=== PATIENT | female | born 1940 | race Hispanic/Latino ===

== ENCOUNTER 2017-01-10 10:20 | Day surgery (SDC) | payer BC, MEDICARE ==
[2017-01-07 09:53] VITALS: BMI 26.6
[2017-01-10 11:04] LABS: BASO # 0.05 K/mm3 (0.0-2.0); BASO % 0.7 % (0.0-3.0); EOS # 0.1 (0.0-0.7); EOS % 1.6 % (1.5-5.0); GRAN # 5.66 (1.4-6.5); GRAN % 81.5 % (50.0-68.0); HEMATOCRIT 27.9 % (36.0-48.0); LYMPH # 0.8 (1.2-3.4); LYMPH % 11.9 % (22.0-35.0); MEAN CORPUSCULAR HEMOGLOBIN 27.8 pg (25.0-35.0); MEAN CORPUSCULAR HGB CONC 31.5 g/dl (31.0-37.0); MONO # 0.3 (0.1-0.6); MONO % 4.3 % (1.0-6.0); PLATELET COUNT 214 10^3/uL (120.0-450.0); RED CELL DISTRIBUTION WIDTH 22.5 % (11.5-14.5)
[2017-01-10 11:10] LABS: INR 1.04 (0.93-1.08); PARTIAL THROMBOPLASTIN TIME 27.5 Seconds (23.7-30.8)
[2017-01-10] MEDS ORDERED: Propofol 10 mg/ml Inj (20 ML) ONE (12:49)
[2017-01-10] MEDS ORDERED: Midazolam 2 MG/2 ML VIAL ONE (12:49)
[2017-01-10] MEDS ORDERED: Lidocaine 1% Inj (20ml) ONE (12:49)
[2017-01-10] MEDS ORDERED: Sodium Chloride 0.9% 1,000 ML IV SCH (13:15)
[2017-01-10 14:04] VITALS: BP 136/78; PULSE 87; RESP 16; TEMP 98; O2SAT 100
== END 2017-01-10 15:00 | disposition home or self-care (01) ==
LOC: ENDO 10:20
PROVIDERS: ATTEND Internal Medicine Gastroenterology
DX: D64.9 Anemia, unspecified (principal); Z87.11 Personal history of peptic ulcer disease
CPT/HCPCS: 36415; 43235; 85025; 85610; 85730; J2250; J2704; J3010; J7040 ×2

== ENCOUNTER 2017-03-17 09:20 | Day surgery (SDC) | payer MEDICARE ==
[2017-03-17 10:14] VITALS: BMI 26.6
[2017-03-17] MEDS ORDERED: Propofol 10 mg/ml Inj (20 ML) ONE (11:20)
[2017-03-17] MEDS ORDERED: cefTRIAXone (Rocephin) 1 gm Inj ONE (11:50)
[2017-03-17] MEDS ORDERED: Iohexol 240 (50 ml) ONE (11:51)
[2017-03-17] MEDS ORDERED: Nitroglycerin 2% Ointment Foilpak UD TOP PRN (11:53)
[2017-03-17] MEDS ORDERED: HYDROmorphone 0.5 mg/0.5 ml ISec IVP PRN ×2 (12:26→12:27)
[2017-03-17 13:25] VITALS: RESP 20; TEMP 97.6; O2SAT 99
[2017-03-17 14:17] VITALS: BP 143/70; PULSE 72
--- NOTE | 2017-03-17 14:39 | RAD ---
PROCEDURE: Fluoroscopy up to 1 hour HISTORY: RETROGRADE / STENT INSERTION (RIGHT) COMPARISON: TECHNIQUE: Fluoroscopy was provided in the operating room. 136 seconds of fluoro time. Fifteen images submitted FINDINGS: The study shows stones in the right renal pelvis. There is passage of a wire into the right renal pelvis and placement of a ureteral stent. IMPRESSION: As above
--- NOTE | 2017-03-17 23:04 | CON ---
DATE: 03/17/2017 HISTORY OF PRESENT ILLNESS: This 76-year-old female is being seen for medical clearance for elective right renal ureteral stent in the setting of a mild obstructive hydronephrosis secondary to a pelvic renal stone. The patient is being followed by myself and Dr. Duke Epperson from Urology because of recent microscopic hematuria, which on outpatient workup through Dr. Epperson's office revealed a probable left renal cell carcinoma. The patient was also noted to have a right renal pelvic kidney stone with mild obstructive hydronephrosis and on outpatient renal scan, it was noted that her left kidney with a renal cell carcinoma was identified, is atrophic and poorly functioning while her right kidney with the kidney stone has mild hydronephrosis and is adequately functioning. As a result, the patient is being scheduled for ureteral stent in anticipation of probable left nephrectomy and possible lithotripsy of the right pelvic stone. PAST MEDICAL HISTORY: The patient's past medical history is significant for Parkinson's disease, polycythemia vera, history of anemia of chronic disease, history of chronic hypertension, hypothyroidism and degenerative arthritis and anxiety. MEDICATIONS: Outpatient medications include HydroDIURIL, Azilect, Toprol-XL, Synthroid, Comtan, carbidopa/levodopa. The patient follows with Dr. Tim Murray, neurologist, Dr. Mcdermott, hematology and Dr. Duke Epperson on Urology. ALLERGIES: THE PATIENT HAS A SENSITIVITY TO PENICILLIN WHICH CAUSES DIARRHEA. 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 She is a nondrinker, nonsmoker, non IV drug misuser. 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 FAMILY HISTORY: Noncontributory. REVIEW OF SYSTEMS: CONSTITUTIONAL: She denied fever or chills. HEENT: On head review, has a history of Parkinson's disease. On eye review, denied change in visual acuity. Ear review, no hearing loss. Throat review, no swallowing difficulty. NECK: No stiffness. CARDIAC: Chronic hypertension. PULMONARY: No cough. No hemoptysis. GI: No hematemesis. No melena. : As per HPI. VASCULAR: No claudication. PSYCHOLOGICAL: Denies anxiety. NEUROLOGICAL: No knowledge of stroke. ENDOCRINOLOGIC: No hyperlipidemia. Chronic hypothroidism. PHYSICAL EXAMINATION: VITAL SIGNS: Temperature 97, respirations 20, pulse 84, blood pressure 185/84, pulse ox 96% on room air. HEENT: Head normocephalic, atraumatic. Eyes; no icterus. Ears clear. Throat noninjected. NECK: Supple. HEART: Regular S1, S2. LUNGS: Clear. ABDOMEN: Soft. EXTREMITIES: No edema. SKIN: Without rash. NEUROLOGIC: Intact. PSYCHOLOGIC: Alert. VASCULAR: Legs warm to touch. LABORATORY DATA: White count 9700, hemoglobin 12.3, hematocrit 38.9, platelets 345,000. Sodium 143, K 4.1, chloride 104, bicarb 28, BUN 33, creatinine 0.9, random blood sugar 106, AST 37, ALT 12, bilirubin 1.1, alk phos 112. Chest x-ray shows no pneumonia. No infiltrate, no pneumothorax, no effusion, normal cardiac size. Renal scan showed an atrophic left kidney and mild hydronephrosis of her right kidney. IMPRESSION: A 76-year-old female in need of a right ureteral stent for right hydronephrosis; left kidney renal cell carcinoma, for which the patient is being worked up for probable nephrectomy with comorbidities of Parkinson's disease, chronic hypertension, polycythemia vera, hypothyroidism, degenerative arthritis, and deconditioning. The plan at present is to proceed with the ureteral stent. The patient is aware, she is at a moderate increased risk of complication given her multiple comorbidities and all of the above. The patient will be followed by Dr. Duke Epperson upon discharge. She is being followed by his urology group for the timing of possible left nephrectomy and I have asked this patient to follow up with her neurologist, Dr. Tim Murray regarding her Parkinson's disease and for him to outline any concerns if any regarding anesthesia for nephrectomy. Greater than fifty minutes was spent in the care, counseling, review of x-rays, labs, medications and testings with this patient. I have reviewed this case in detail with and family at bedside today. All questions were answered. Jimena Rockwell MD MTDD
--- NOTE | 2017-03-18 00:13 | OP ---
PROCEDURE DATE: 03/17/2017 PREOPERATIVE DIAGNOSES: Right renal pelvic and renal calculi. POSTOPERATIVE DIAGNOSES: Right renal pelvic and renal calculi. PROCEDURE: Cystoscopy, right retrograde pyelogram, insertion of a right ureteral stent. ATTENDING SURGEON: Dr. Duke Epperson. ANESTHESIA: General. SPECIMENS: There were none. DRAINS: A 6 x 26 right ureteral stent. COMPLICATIONS: There were none. OPERATIVE FINDINGS: After informed consent was obtained, the patient was taken to the operating room, placed on the operating table. Anesthesia was administered. The patient was then placed in a dorsal lithotomy position and prepped and draped in usual sterile fashion. A 21-Kittitian cystoscope was passed into the patient's bladder and a full survey inspection was performed. There were no stones, tumors or foreign bodies of the bladder noted. Both ureteral orifices were visualized and appeared within normal limits. At this point on fluoroscopy, a large density was noted in the area of the right kidney. A Orient catheter was introduced through the cystoscope and guided into the right ureteral orifice. Contrast was then instilled into the system during real-time fluoroscopy. There was a large filling defect consistent with the known renal pelvic stone noted in the right renal pelvis. There was a second large filling defect more proximal. There was some mild fullness of the upper calyceal system. At this point, a Sensor wire was introduced through the Orient catheter and guided into the right ureter. The Sensor wire was advanced up the ureter under fluoroscopic guidance. I was able to manipulate the wire around the stone in the renal pelvis and coil it in the upper collecting system. At this point, a 6 x 26 stent was obtained. The stent was passed over the guidewire into the bladder and into the right ureter under direct and fluoroscopic guidance. The stent was able to be advanced beyond the stone and coiled in the upper collecting system. At this point, the guidewire was removed. A coil was seen in the upper collecting system on fluoroscopy. A coil was seen in the bladder on cystoscopy. The patient received intravenous antibiotics prior to start of the procedure. At this point, the procedure was complete, the bladder was drained. The cystoscope was removed. The patient tolerated the procedure well. She was taken to the recovery room in awake and stable condition. Duke Epperson MD [facility] # [phone]
--- NOTE | 2017-03-18 00:15 | CARD ---
APPROVED REPORT EKG Measurement Heart [id number] <Conclusion> Sinus rhythm with 1st degree AV block Possible Left atrial enlargement Left ventricular hypertrophy Abnormal ECG
== END 2017-03-17 14:15 | disposition home or self-care (01) ==
LOC: SDS 09:20
PROVIDERS: ATTEND Urology
DX: N13.2 Hydronephrosis with renal and ureteral calculous obstruction (principal); C64.2 Malignant neoplasm of left kidney, except renal pelvis; I10 Essential (primary) hypertension; G20 Parkinson's disease; D45 Polycythemia vera; E03.9 Hypothyroidism, unspecified; F41.9 Anxiety disorder, unspecified
CPT/HCPCS: 52332; 76000; 93005; C1769; C2625; J0696; J1170; J2405; J2704; J3010; J7120; Q9966

== ENCOUNTER 2017-04-07 11:14 | Emergency (ER) | payer MEDICARE ==
--- NOTE | 2017-04-07 11:43 | ED PDOC ---
Arrival/HPI - General Time Seen by Provider: 04/07/17 11:19 Historian: Patient - History of Present Illness Narrative History of Present Illness (Text): 04/07/17 11:27 A 76 year old female, whose past medical history includes Parkinson's and cellulitis, presents to the emergency department for left foot swelling and redness, which began 3 days ago. The patient reports the pain began behind her left big toe and spread to the rest of her foot within the last few days. She states there is only pain when her toe is touched, she also notes that she is having more difficulty walking due to the inflammation of her foot. She denies any fever, chest pain, abdominal pain, nausea, discharge, or any other symptoms at this time. The patient admits to having similar complaints in the past. Time/Duration: < week (x 3 days ) Symptom Onset: Sudden Symptom Course: Unchanged Quality: Other Severity Level: Mild Activities at Onset: Light Context: Home Past Medical History - Provider Review Nursing Documentation Reviewed: Yes - Cardiac Hx Pacemaker: No - Neurological Hx Paralysis: No - Hematological/Oncological Hx Blood Transfusions: (04/2016) - Musculoskeletal/Rheumatological Hx Musculoskeletal Disorders: No - Psychiatric Hx Emotional Abuse: No Hx Physical Abuse: No Hx Substance Use: No - Surgical History Hx Thyroidectomy: Yes - Anesthesia Hx Anesthesia Reactions: No Hx Malignant Hyperthermia: No - Suicidal Assessment Feels Threatened In Home Enviroment: No Family/Social History - Physician Review Nursing Documentation Reviewed: Yes Family/Social History: No Known Family HX Smoking Status: Former Smoker Hx Alcohol Use: No Hx Substance Use: No Allergies/Home Meds Allergies/Adverse Reactions: Allergies Penicillins Adverse Reaction (Verified 03/17/17 10:23) DIARRHEA Home Medications: Home Meds Medication Instructions Recorded Confirmed Carbidopa/Levodopa 1 tab PO QID 01/07/17 04/07/17 [Carbidopa-Levodopa 25-100 Tab] Entacapone [Comtan] 200 mg PO TID 01/07/17 04/07/17 Levothyroxine [Synthroid] 150 mcg PO DAILY 01/07/17 04/07/17 Multivitamin/Iron/Folic Acid 1 tab PO DAILY 01/07/17 04/07/17 [Centrum Adults Tablet] Rasagiline Mesylate [Azilect] 1 mg PO DAILY 01/07/17 04/07/17 hydroCHLOROthiazide [Hydrodiuril] 25 mg PO DAILY 01/07/17 04/07/17 Metoprolol Succinate [Toprol Xl] 25 mg PO DAILY 03/11/17 04/07/17 Carbidopa/Levodopa [Rytary ER 1 cap PO QID 04/07/17 04/07/17 36.25 mg-145 mg Cap] Review of Systems - Physician Review All systems were reviewed & negative as marked: Yes - Review of Systems Constitutional: absent: Fevers Cardiovascular: absent: Chest Pain Gastrointestinal: absent: Abdominal Pain, Nausea Skin: Other (left foot swelling and redness) Physical Exam Vital Signs Reviewed: Yes Vital Signs Temp Pulse Resp BP Pulse Ox 04/07/17 13:49 71 18 152/69 H 98 04/07/17 12:44 74 18 155/71 H 97 04/07/17 11:21 98.3 F 79 18 160/76 H 97 Temperature: Afebrile Blood Pressure: Hypertensive Pulse: Regular Respiratory Rate: Normal Appearance: Positive for: Well-Appearing, Non-Toxic, Comfortable Pain Distress: None Mental Status: Positive for: Alert and Oriented X 3 - Systems Exam Head: Present: Atraumatic, Normocephalic Pupils: Present: PERRL Extroacular Muscles: Present: EOMI Conjunctiva: Present: Normal Mouth: Present: Moist Mucous Membranes Neck: Present: Normal Range of Motion Respiratory/Chest: Present: Clear to Auscultation, Good Air Exchange. No: Respiratory Distress, Accessory Muscle Use Cardiovascular: Present: Regular Rate and Rhythm, Normal S1, S2. No: Murmurs Abdomen: Present: Normal Bowel Sounds. No: Tenderness, Distention, Peritoneal Signs Back: Present: Normal Inspection Upper Extremity: Present: Edema (left foot and ankle ), Normal ROM, NORMAL PULSES, Swelling, Erythema, Other (erythema and warmth over the left foot extending into the ankle) Lower Extremity: Present: Normal Inspection. No: Edema Neurological: Present: GCS=15, CN II-XII Intact, Speech Normal Skin: Present: Warm, Dry, Normal Color. No: Rashes Psychiatric: Present: Alert, Oriented x 3, Normal Insight, Normal Concentration Medical Decision Making ED Course and Treatment: Dr Rockwell came and eval the pt in the ED and rec admission. The pt did not wish to stay and signed out AMA. She is aware of risks including loss of limb or infection spreading and leading to organ failure and . She appears to have intact insight and judgment and reason and in my opinion has the capacity to make decisions. She understands she may return at any time. - Lab Interpretations Microbiology Results: Microbiology Results 04/07/17 13:30 Blood-Venous Blood Culture - Final NO GROWTH AFTER 5 DAYS 04/07/17 13:30 Blood-Venous Gram Stain - Final TEST NOT PERFORMED 04/07/17 13:30 Blood-Venous Blood Culture - Final NO GROWTH AFTER 5 DAYS 04/07/17 13:30 Blood-Venous Gram Stain - Final TEST NOT PERFORMED Lab Results: 04/07/17 13:30 04/07/17 13:30 Lab Results 04/07/17 15:00: C-React Prot High Sens > 15.00 H 04/07/17 15:00: Procalcitonin 0.11 L 04/07/17 15:00: ESR 45 H 04/07/17 13:30: Sodium 140, Potassium 3.8, Chloride 103, Carbon Dioxide 28, Anion Gap 14, BUN 35 H, Creatinine 0.8, Est GFR ( Amer) > 60, Est GFR ( Non-Af Amer) > 60, Random Glucose 107, Calcium 9.7, Total Bilirubin 1.2, AST 25 , ALT 24, Alkaline Phosphatase 114, Total Protein 7.1, Albumin 4.0, Globulin 3.2 , Albumin/Globulin Ratio 1.3 04/07/17 13:30: WBC 10.8, RBC 4.14, Hgb 11.0 L, Hct 35.5 L, MCV 85.7, MCH 26.6, MCHC 31.0, RDW 19.6 H, Plt Count 351, MPV 11.6 H, Gran % 88.3 H, Lymph % (Auto) 6.3 L, [place] % (Auto) 2.9, Eos % (Auto) 2.0, Baso % (Auto) 0.5, Gran # 9.52 H, Lymph # 0.7 L, [place] # 0.3, Eos # 0.2, Baso # 0.05 - Medication Orders Current Medication Orders: Acetaminophen (Tylenol 325mg Tab) 650 mg PO Q6H PRN PRN Reason: Fever >100.4 F Carbidopa/Levodopa (Sinemet) 1 tab PO QID CIARAN Hydrochlorothiazide (Hydrodiuril) 25 mg PO DAILY CIARAN Levothyroxine Sodium (Synthroid) 150 mcg PO 0600 CIARAN Metoprolol Tartrate (Lopressor) 25 mg PO BID CIARAN Nitroglycerin (Nitro-Bid 2% Oint) 1 ea TOP Q4H PRN PRN Reason: accelerated hypertension Discontinued Medications Amoxicillin/Clavulanate Potassium (Augmentin 875 Mg-125 Mg Tab) 1 tab PO STAT STA PRN Reason: Protocol Stop: 04/07/17 12:18 Last Admin: 04/07/17 12:28 Dose: Piperacillin Sod/Tazobactam Sod (Zosyn 3.375 In Ns 100ml) 100 mls @ 200 mls/hr IVPB STAT STA PRN Reason: Protocol Stop: 04/07/17 13:39 Last Admin: 04/07/17 14:42 Dose: 200 mls/hr eMAR Start Stop Document 04/07/17 14:42 SF (Rec: 04/07/17 14:42 SF [id number]) Intravenous Solution Start Date 04/07/17 Start Time 14:42 End Date 04/07/17 End time 15:13 Total Infusion Time 31 Vancomycin HCl (Vancomycin 1gm) 1 gm in 250 mls @ 167 mls/hr IVPB STAT STA Stop: 04/07/17 14:44 Last Admin: 04/07/17 13:48 Dose: 167 mls/hr eMAR Start Stop Document 04/07/17 13:48 SF (Rec: 04/07/17 13:48 SF [id number]) Intravenous Solution Start Date 04/07/17 Start Time 13:48 End Date 04/07/17 End time 15:18 Total Infusion Time 90 Cefazolin Sodium (Ancef 1gm In Ns) 1 gm in 100 mls @ 200 mls/hr IVPB Q8H CIARAN Trimethoprim/Sulfamethoxazole (Bactrim Ds Tab) 1 tab PO STAT STA PRN Reason: Protocol Stop: 04/07/17 12:18 Last Admin: 04/07/17 12:25 Dose: 1 tab - Scribe Statement The provider has reviewed the documentation as recorded by the Scribdesean Rosario Provider Scribe Attestation: All medical record entries made by the Scribe were at my direction and personally dictated by me. I have reviewed the chart and agree that the record accurately reflects my personal performance of the history, physical exam, medical decision making, and the department course for this patient. I have also personally directed, reviewed, and agree with the discharge instructions and disposition. Disposition/Present on Arrival - Present on Arrival Any Indicators Present on Arrival: No History of DVT/PE: No History of Uncontrolled Diabetes: No Urinary Catheter: No History Surgical Site Infection Following: None - Disposition Have Diagnosis and Disposition been Completed?: Yes Diagnosis: Cellulitis of lower leg Disposition: AGAINST MEDICAL ADVICE Disposition Time: 13:12 Condition: STABLE Discharge Instructions (ExitCare): Cellulitis (ED) Additional Instructions: Please follow up with your doctor. You may return to the ER at any time should you change your mind. Prescriptions: Cephalexin [cephalexin] 500 mg PO QID #28 cap Sulfamethoxazole/Trimethoprim [Bactrim Ds Tablet] 1 each PO BID #14 tablet Referrals: Jimena Rockwell MD [Primary Care Provider] - Follow up with primary Forms: [employer] (German)
[2017-04-07 11:58] VITALS: RESP 18; TEMP 98.3; BMI 26.9
[2017-04-07] MEDS ORDERED: Tmp-Smz 800 mg-160 mg DS Tab PO STA (12:17)
[2017-04-07] MEDS: Amoxicillin-Clav 875-125 mg Tab PO STA ×2 (12:25→12:28)
[2017-04-07] MEDS ORDERED: Vancomycin 500 mg Inj IVPB STA (13:10)
[2017-04-07] MEDS ORDERED: Piperacillin/Tazobact 3.375 gm 100 ML IVPB STA (13:10)
[2017-04-07] MEDS ORDERED: Vancomycin 1gm in NS 250ml 1 GM/250 ML BAG IVPB STA (13:15)
[2017-04-07 13:50] VITALS: BP 152/69; PULSE 71; O2SAT 98
[2017-04-07 13:57] LABS: BASO # 0.05 K/mm3 (0.0-2.0); BASO % 0.5 % (0.0-3.0); EOS # 0.2 (0.0-0.7); GRAN # 9.52 (1.4-6.5); GRAN % 88.3 % (50.0-68.0); LYMPH # 0.7 (1.2-3.4); LYMPH % 6.3 % (22.0-35.0); MEAN CELL VOLUME 85.7 fl (80.0-105.0); MEAN CORPUSCULAR HEMOGLOBIN 26.6 pg (25.0-35.0); MEAN PLATELET VOLUME 11.6 fl (7.0-11.0); MONO # 0.3 (0.1-0.6); MONO % 2.9 % (1.0-6.0); RBC 4.14 10^6/uL (3.5-6.1); RED CELL DISTRIBUTION WIDTH 19.6 % (11.5-14.5); WHITE BLOOD COUNT 10.8 10^3/ul (4.5-11.0)
[2017-04-07 14:04] LABS: ALB/GLOB RATIO 1.3 (1.1-1.8); ALT/SGPT 24 U/L (7-56); AST/SGOT 25 U/L (14-36); BLOOD UREA NITROGEN 35 mg/dL (7-21); CALCIUM 9.7 mg/dL (8.4-10.5); GFR AFRICAN-AMERICAN > 60; GFR NON-AFRICAN AMERICAN > 60
[2017-04-07] MEDS ORDERED: Nitroglycerin 2% Ointment Foilpak UD TOP PRN (16:35)
[2017-04-07] MEDS ORDERED: ceFAZolin 1 gm in NS 1 GM/100 ML BAG IVPB SCH (17:00)
--- NOTE | 2017-04-08 02:18 | HP ---
HISTORY OF PRESENT ILLNESS: This 76-year-old female was examined in [facility] Emergency Room. She is admitted with left foot and leg cellulitis. The patient states that approximately 3 days ago, she noticed the onset of redness in her left great toe. This then spread to her five digits, forefoot, and now is present on the pretibial surface of her right lindquist. The patient states it is painful to the touch and it is causing difficulty with her ambulation secondary to the pain and inflammation of her foot. The patient denied any fever, chills, or sweats and has not checked her fever at home. PAST MEDICAL HISTORY: Extensive and includes chronic hypertension, advanced Parkinson disease, hypothyroidism, degenerative arthritis, and a newly noted left renal mass in an atrophic kidney that she is undergoing timing for nephrectomy. The patient also is status post a right ureteral stent by Dr. Duke Epperson from Urology for history of right pelvic stone and mild hydronephrosis. REVIEW OF SYSTEMS: CONSTITUTIONAL: The patient denied fever or chills. EYES: There was no change in visual acuity. EAR: No hearing loss. THROAT: No swallowing difficulty. NECK: No stiffness. CARDIAC: She has chronic hypertension. Denies any chest pain, shortness of breath, palpitations or knowledge of atherosclerotic heart disease. PULMONARY: Denies cough or congestion. GI: Denies hematemesis, melena and has a history of an unremarkable colonoscopy and a history of hepatosplenomegaly in the setting of chronic polycythemia vera. : As per HPI. PSYCHOLOGICAL: Chronic anxiety. ENDOCRINOLOGIC: Hypothyroidism. MUSCULOSKELETAL: Degenerative arthritis. VASCULAR: Varicose veins. HEMATOLOGICAL: Polycythemia vera and history of anemia requiring blood cell transfusions and Procrit. She is under the hematological care of Dr. Mcdermott. She sees Dr. Duke Epperson for Urology and is being readied for left nephrectomy under his direction. FAMILY HISTORY: Noncontributory. SOCIAL HISTORY: She is a nondrinking, nonsmoking, non IV drug user. 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 ALLERGIES: SENSITIVITY TO PENICILLIN, BUT IT DOES NOT CAUSE RASH OR HIVE-LIKE REACTION. PHYSICAL EXAMINATION: VITAL SIGNS: Temperature 98.3, respirations 18, pulse 79, blood pressure 160/76, pulse ox 97% on room air. HEAD: Normocephalic, atraumatic. EYES: No icterus. EARS: Clear. THROAT: Noninjected. NECK: Supple. HEART: Regular. S1, S2. LUNGS: Clear. ABDOMEN: Soft. EXTREMITIES: Left foot great toe erythema and warmth, ingrown left great toenail. Cellulitis of the five digits, forefoot, and anterior tibial lindquist surface. SKIN: Without any ulcerations. NEUROLOGIC: Chronic parkinsonism. MUSCULOSKELETAL: Degenerative arthritis. VASCULAR: Varicose veins. LABORATORY DATA: White count 10,800, hemoglobin 11, hematocrit 35.5, platelets 351,000. Sodium 140, K 3.8, chloride 103, bicarb 28, BUN 35, creatinine 0.8, random blood sugar 107. Bilirubin 1.2, AST 25, ALT 24, and alk phos 114. IMPRESSION: A 76-year-old female with new-onset left great toe, forefoot, and ascending cellulitis of her left lower extremity with a left ingrown toenail and comorbidities of chronic hypertension, Parkinson's disease, hypothyroidism, degenerative arthritis, varicose veins, history of polycythemia vera, history of anemia of chronic illness, and now with left renal mass, right renal stent for hydronephrosis, and right renal pelvic asymptomatic kidney stones. PLAN: Plan is to admit this patient, obtain blood cultures. I have ordered a podiatric consultation with her occupational health physiotherapist, Dr. Raulito Mullen for local foot care. I will order a CRP level, thyroid stimulating hormone, ESR, and procalcitonin serum level stat. In the emergency room, she was given a dose of vancomycin and piperacillin. I will order Ancef 1 gm IV q.8 hours. She will be ordered to have a Lexiscan stress test for completeness sake in preop preparation of impending nephrectomy. She will have fall precautions, bathroom privileges with assistance. I will ask the nursing staff to allow her to take her Azilect and Comtan Parkinson medications from home as labeled since they are nonformulary and we will order a physical therapy evaluation for ambulation safety. The ultimate plan will be for discharge to home when medically stable and the patient is showing clinical improvement on parenteral antibiotics and then to switch her to oral antibiotics and have her follow up as an outpatient with her occupational health physiotherapist and the timing of her nephrectomy will be decided based on her clinical progress. Greater than 75 minutes was spent in the care, review of x-rays, labs, medications and discussion of treatment plan with the patient, emergency room physician and nursing today. All questions were answered. Jimena Rockwell MD MTDJorge
[2017-04-08] MEDS ORDERED: Levothyroxine 150 MCG TAB PO SCH (06:00)
== END 2017-04-07 15:20 | disposition left against medical advice (07) ==
LOC: ED 11:14 → UNDOADMIN 13:11 → ERH 13:11 → ED 15:20
DX: L03.116 Cellulitis of left lower limb (principal)
CPT/HCPCS: 80053; 84145; 85025; 85651; 86140; 87040; 96365; 96368; 99285; J2543

== ENCOUNTER 2017-05-09 09:26 | Inpatient (IN) | payer MEDICARE ==
[2017-05-09 09:50] VITALS: BMI 26.7
[2017-05-09] MEDS ORDERED: Piperacillin/Tazobact 3.375 gm 100 ML IVPB STA (10:10)
--- NOTE | 2017-05-09 10:16 | ED PDOC ---
Arrival/HPI - General Chief Complaint: Lower Extremity Problem/Injury Time Seen by Provider: 05/09/17 10:02 Historian: Patient, Family (SON) - History of Present Illness Narrative History of Present Illness (Text): 05/09/17 10:13 pt p/w ~ 6-7 days of right foot pain, worsening swelling/pain over the last few days; pt states 1 month ago with similiar presentation but it was the left foot ; pt was prescribed abx and was recommended for admission at that time but pt had refused; pt states symptoms did improve but this time, pt's symptoms are worse; pt states no fever/chills/sweats, no cp/sob/palpitations, no abd pain, no n/v, no numbness/tingling, no urinary/bowel changes, no fall/trauma/sick contact, no 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 denied bleeding pt denied other complaints pt is here for further eval pt is due to have kidney surgery Time/Duration: 1 week Symptom Onset: Gradual Symptom Course: Worsening Quality: Throbbing Severity Level: 8, Severe Activities at Onset: Rest Context: Home Past Medical History - Provider Review Nursing Documentation Reviewed: Yes - Travel History Have you recently traveled outside [place] w/in the past 3 mons?: No - Past History Past History: No Previous - Infectious Disease Hx of Infectious Diseases: None - Tetanus Immunization Tetanus Immunization: Unknown - Cardiac Hx Cardiac Disorders: Yes Hx Hypertension: Yes - Pulmonary Hx Respiratory Disorders: No (denies) - Neurological Hx Paralysis: No - Renal Hx Renal Disorder: Yes Other/Comment: renal stent x1 right kidney 03/2017. mass left kidney - Endocrine/Metabolic Hx Endocrine Disorders: Yes Other/Comment: 04/08 thyroid removed. Thyroid CA - Hematological/Oncological Hx Blood Transfusions: (04/2016) - Musculoskeletal/Rheumatological Hx Musculoskeletal Disorders: No - Gastrointestinal Hx Gastrointestinal Disorders: No - Genitourinary/Gynecological Hx Genitourinary Disorders: No - Psychiatric Hx Emotional Abuse: No Hx Physical Abuse: No Hx Substance Use: No - Surgical History Hx Hysterectomy: Yes Hx Thyroidectomy: Yes - Anesthesia Hx Anesthesia Reactions: No Hx Malignant Hyperthermia: No - Suicidal Assessment Feels Threatened In Home Enviroment: No Family/Social History - Physician Review Nursing Documentation Reviewed: Yes Family/Social History: No Known Family HX Smoking Status: Former Smoker Hx Alcohol Use: No Hx Substance Use: No Hx Substance Use Treatment: No Allergies/Home Meds Allergies/Adverse Reactions: Allergies Penicillins Adverse Reaction (Verified 05/09/17 09:49) DIARRHEA Home Medications: Home Meds Medication Instructions Recorded Confirmed Entacapone [Comtan] 200 mg PO TID 01/07/17 05/09/17 Levothyroxine [Synthroid] 150 mcg PO DAILY 01/07/17 05/09/17 Multivitamin/Iron/Folic Acid 1 tab PO DAILY 01/07/17 05/09/17 [Centrum Adults Tablet] Rasagiline Mesylate [Azilect] 1 mg PO DAILY 01/07/17 05/09/17 hydroCHLOROthiazide [Hydrodiuril] 25 mg PO DAILY 01/07/17 05/09/17 Metoprolol Succinate [Toprol Xl] 25 mg PO DAILY 03/11/17 05/09/17 Carbidopa/Levodopa [Rytary ER 1 cap PO QID 04/07/17 05/09/17 36.25 mg-145 mg Cap] Review of Systems - Review of Systems Constitutional: Normal Eyes: Normal ENT: Normal Respiratory: Normal Cardiovascular: Normal Gastrointestinal: Normal Genitourinary Female: Normal Musculoskeletal: Other (right foot pain) Skin: Other (right foot skin reaction) Neurological: Normal Endocrine: Normal Hemo/Lymphatic: Normal Psychiatric: Normal Physical Exam Vital Signs Reviewed: Yes Vital Signs Temp Pulse Resp BP Pulse Ox 05/09/17 11:57 82 16 137/82 05/09/17 09:55 97.8 F 90 19 142/56 L 97 05/09/17 09:50 97.8 F 90 19 142/56 L 97 Temperature: Afebrile Blood Pressure: Normal Pulse: Regular Respiratory Rate: Normal Appearance: Positive for: Well-Appearing, Non-Toxic, Uncomfortable, Other ( resting in bed, alert/awake, cooperative, NAD, follows command with ease) Pain Distress: None Mental Status: Positive for: Alert and Oriented X 3 - Systems Exam Head: Present: Atraumatic, Normocephalic, Other (mild bi-temporal wasting) Pupils: Present: PERRL Extroacular Muscles: Present: EOMI Conjunctiva: Present: Normal Ears: Present: Normal Mouth: Present: Moist Mucous Membranes Pharnyx: Present: Normal Nose (External): Present: Atraumatic Nose (Internal): Present: Normal Inspection Neck: Present: Normal Range of Motion, Trachea Midline. No: MIDLINE TENDERNESS Respiratory/Chest: Present: Clear to Auscultation, Good Air Exchange Cardiovascular: Present: Regular Rate and Rhythm, Normal S1, S2 Abdomen: Present: Normal Bowel Sounds, Other (well nourished female, no focal tenderness, no masses/rebound/guarding/rigidity, no henriquez's sign, no mcburney' s point tenderness) Back: Present: Normal Inspection. No: Midline Tenderness Upper Extremity: Present: Normal Inspection, Normal ROM, NORMAL PULSES, Neurovascularly Intact, Capillary Refill < 2s Lower Extremity: Present: NORMAL PULSES, Normal ROM, Neurovascularly Intact, Other (noted right forefoot from the 1st digit to 4th digit with swelling/and skin erythema extending proximally to mid-forefoot; no pitting edema noted, + tenderness on exam; no open sores/lesions/ulcerations noted; decr ROM to right ankle; neurovasc intact b/l, strength 5/5 grossly intact in all limbs) Neurological: Present: GCS=15, CN II-XII Intact, Speech Normal Skin: Present: Warm. No: Rashes Psychiatric: Present: Alert, Oriented x 3 Medical Decision Making ED Course and Treatment: 05/09/17 10:14 Impression: right forefoot pain/swelling, likely cellulitis i have consider all the differential diagnosis regarding pt's chief medical complaints/clinical findings, including but are not limited to: right foot pain/ swelling A/P: r/o cellulitis, unlikely osteo - labs - iv - xray - abx - ua - cultures? - observe - supportive care 05/09/17 12:05 pt is currently comfortable 11:15 - Dr Rockwell called and want the patient admitted to her service, agrees with ED mgt/txt and abx IV; will continue to monitor patient pt is made aware of her medical results agrees with admission Re-evaluation Time: 12:06 Reassessment Condition: Improving,but remains with symptoms - Lab Interpretations Lab Results: 05/09/17 10:20 05/09/17 10:20 Lab Results 05/09/17 10:20: pO2 55, VBG pH 7.35, VBG pCO2 57.0, VBG HCO3 31.5 H, VBG Total CO2 33.2 H, VBG O2 Sat (Calc) 89.9 H, VBG Base Excess 4.3 H, VBG Potassium 3.9, Sodium 142.0, Chloride 105.0, Glucose 100, Lactate 1.1, FiO2 21.0, Venous Blood Potassium 3.9 05/09/17 10:20: WBC 11.1 H, RBC 4.43, Hgb 11.7 L, Hct 38.0, MCV 85.8, MCH 26.4, MCHC 30.8 L, RDW 20.6 H, Plt Count 379, MPV 10.2, Gran % 88.0 H, Lymph % (Auto) 6.8 L, [place] % (Auto) 1.8, Eos % (Auto) 2.9, Baso % (Auto) 0.5, Gran # 9.74 H, Lymph # (Auto) 0.8 L, [place] # (Auto) 0.2, Eos # (Auto) 0.3, Baso # (Auto) 0.05, ESR 28 H 05/09/17 10:20: Sodium 145, Chloride 104, Potassium 4.0, Carbon Dioxide 30, Anion Gap 16, BUN 38 H, Creatinine 1.1, Est GFR ( Amer) 59, Est GFR (Non- Af Amer) 48, Random Glucose 96, Calcium 10.0, Total Bilirubin 0.8, AST 49 H D, ALT 20, Alkaline Phosphatase 88, Total Protein 7.2, Albumin 4.1, Globulin 3.1, Albumin/Globulin Ratio 1.3 I have reviewed the lab results: Yes Interpretation: Abnormal lab values (elevated esr; abnl UA) - RAD Interpretation Narrative RAD Interpretations (Text): 05/09/17 14:12 PROCEDURE: Right Foot Radiographs. HISTORY: forefoot swelling/pain/redness COMPARISON: None. FINDINGS: BONES: Normal. No fracture. JOINTS: Normal. SOFT TISSUES: Normal. OTHER FINDINGS: None. IMPRESSION: Normal right foot radiographs. Radiology Orders: 05/09/17 10:09 FOOT RIGHT 3 VIEWS ROUTINE [RAD] Stat Forefoot sts, no acute fx, no dislocation noted, as read by me Resident Medical Officer: ED Physician, Radiologist - Medication Orders Current Medication Orders: Acetaminophen (Tylenol 325mg Tab) 650 mg PO Q6H PRN PRN Reason: Fever >100.4 F Diphenhydramine HCl (Benadryl) 25 mg IVP Q8H PRN PRN Reason: purititis or rash Hydrochlorothiazide (Hydrodiuril) 25 mg PO DAILY [facility] Cefepime HCl (Maxipime 1gm) 1 gm in 100 mls @ 100 mls/hr IVPB Q8 [facility] Levothyroxine Sodium (Synthroid) 150 mcg PO 0600 [facility] Metoprolol Succinate (Toprol Xl) 25 mg PO BRK [facility] Ondansetron HCl (Zofran Inj) 4 mg IVP Q8H PRN PRN Reason: Nausea/Vomiting Discontinued Medications Acetaminophen (Tylenol 325mg Tab) 650 mg PO ONCE ONE Stop: 05/09/17 10:11 Last Admin: 05/09/17 10:42 Dose: 650 mg [facility] Pain/Vitals Document 05/09/17 10:42 MS (Rec: 05/09/17 10:44 MS [id number]) Pain Reassessment Is This A Pain ReAssessment? Yes Sleep Is patient sleeping during reassessment? No Presence of Pain Presence of Pain Yes Pain Scale Used Pain Scale Used Numeric Location Left, Right or Bilateral Right Pain Location Body Site Foot Description Constant Intensity 7 Scale Used Numeric Pain Behavior Irritability Re-Assess: [facility] Pain/Vitals Document 05/09/17 11:42 MS (Rec: 05/09/17 12:46 MS [facility] [place]-[id number]) Pain Reassessment Is This A Pain ReAssessment? Yes Sleep Is patient sleeping during reassessment? No Presence of Pain Presence of Pain No Pain Scale Used Pain Scale Used Numeric Cefazolin Sodium (Ancef) 1 gm IVPB Q8H [facility] PRN Reason: Protocol Piperacillin Sod/Tazobactam Sod (Zosyn 3.375 In Ns 100ml) 100 mls @ 200 mls/hr IVPB STAT STA PRN Reason: Protocol Stop: 05/09/17 10:39 Last Admin: 05/09/17 10:44 Dose: 200 mls/hr eMAR Start Stop Document 05/09/17 10:44 MS (Rec: 05/09/17 10:46 MS [id number]) Intravenous Solution Start Date 05/09/17 Start Time 10:46 End Date 05/09/17 End time 11:16 Total Infusion Time 30 Disposition/Present on Arrival - Present on Arrival Any Indicators Present on Arrival: No History of DVT/PE: No History of Uncontrolled Diabetes: No Urinary Catheter: No History of Decub. Ulcer: No History Surgical Site Infection Following: None - Disposition Have Diagnosis and Disposition been Completed?: Yes Diagnosis: Cellulitis of foot, right, Ambulatory dysfunction Diagnosis: (Ruled Out): Renal insufficiency Disposition: HOSPITALIZED Disposition Time: 12:04 Patient Plan: Admission Patient Problems: Current Active Problems Problem Status Onset Cellulitis of foot, right Acute Ambulatory dysfunction Acute Condition: STABLE
[2017-05-09 10:32] LABS: BASO # 0.05 K/mm3 (0.0-2.0); BASO % 0.5 % (0.0-3.0); EOS # 0.3 (0.0-0.7); EOS % 2.9 % (1.5-5.0); GRAN # 9.74 (1.4-6.5); HEMOGLOBIN 11.7 g/dL (12.0-16.0); LYMPH # 0.8 (1.2-3.4); LYMPH % 6.8 % (22.0-35.0); MEAN CELL VOLUME 85.8 fl (80.0-105.0); MEAN CORPUSCULAR HEMOGLOBIN 26.4 pg (25.0-35.0); MEAN CORPUSCULAR HGB CONC 30.8 g/dl (31.0-37.0); MEAN PLATELET VOLUME 10.2 fl (7.0-11.0); MONO # 0.2 (0.1-0.6); MONO % 1.8 % (1.0-6.0); RBC 4.43 10^6/uL (3.5-6.1); RED CELL DISTRIBUTION WIDTH 20.6 % (11.5-14.5); VENOUS BLOOD GAS BASE EXCESS 4.3 mmol/L (0.0-2.0); VENOUS BLOOD GAS PO2 55 mm/Hg (30-55); VENOUS BLOOD PH 7.35 (7.32-7.43); WHITE BLOOD COUNT 11.1 10^3/ul (4.5-11.0)
[2017-05-09 10:51] LABS: ALB/GLOB RATIO 1.3 (1.1-1.8); ALBUMIN 4.1 g/dL (3.0-4.8)
[2017-05-09] MEDS ORDERED: DiphenhydrAMINE 50 mg/ml Inj IVP PRN (11:16)
[2017-05-09 12:42] LABS: URINE BILIRUBIN NEGATIVE (NEGATIVE); URINE BLOOD LARGE (NEGATIVE); URINE GLUCOSE (UA) NEGATIVE (NEGATIVE); URINE LEUKOCYTE ESTERASE SMALL Leu/uL (NEGATIVE); URINE NITRATE NEGATIVE (NEGATIVE); URINE PROTEIN 100 mg/dL (<30 mg/dL); URINE UROBILINOGEN 0.2 E.U./dL (<1 E.U./dL)
[2017-05-09 12:43] LABS: URINE APPEARANCE SL CLOUDY (CLEAR); URINE COLOR YELLOW (YELLOW)
[2017-05-09 12:57] LABS: URINE RBC TNTC /hpf (0-2); URINE WBC 15 - 20 /hpf (0-6)
[2017-05-09 12:58] LABS: URINE AMORPHOUS SEDIMENT FEW; URINE BACTERIA MANY (NEG)
--- NOTE | 2017-05-09 13:19 | RAD ---
PROCEDURE: Right Foot Radiographs. HISTORY: forefoot swelling/pain/redness COMPARISON: None. FINDINGS: BONES: Normal. No fracture. JOINTS: Normal. SOFT TISSUES: Normal. OTHER FINDINGS: None. IMPRESSION: Normal right foot radiographs.
[2017-05-09] MEDS ORDERED: Cefepime 1gm in NS 100ml 1 GM/100 ML BAG IVPB SCH (14:00)
[2017-05-09] MEDS: ceFAZolin 1 gm in NS 1 GM/100 ML BAG IVPB SCH ×2 (16:28→22:17)
[2017-05-09] MEDS ORDERED: Pneumococcal 23-Valent Vaccine IM ONE (18:57)
[2017-05-09] MEDS ORDERED: Influenza Vaccine 60 mcg/0.5 mL SYR (4YR UP) IM ONE (18:57)
--- NOTE | 2017-05-10 01:14 | HP ---
DATE; 05/09/2017. HISTORY OF PRESENT ILLNESS: This 76-year-old female was examined in bed 1 of the emergency room where she is being admitted for bilateral cellulitis of her feet and pretibial skin surfaces, right foot greater than left. The patient has a significant past medical history of recurrent cellulitis of the legs. She follows with Dr. Raulito Mullen from Podiatry and is under the hematological oncology followup of Dr. Mcdermott for history of polycythemia vera and now chronic anemia. The patient is in need of a left nephrectomy for renal cell carcinoma that has been put on hold because of her recent cellulitis. The patient also is recently status post right hydronephrosis and ureteral stent placed by Dr. Duke Epperson from Urology for a newly noted right renal pelvis kidney stone in anticipation of soon to be accomplished left nephrectomy. The patient's past medical history is also significant for chronic hypertension, hypothyroidism and polycythemia vera, anemia of chronic disease and newly noted left renal cell cancer, right renal stone with hydronephrosis that prompted Dr. Epperson to put a right ureteral stent and history of Parkinson's disease that is followed by Dr. Tim Murray from Neurology. REVIEW OF SYSTEMS: Constitutional review, the patient denied fever or chills. Head review denied any recent head trauma, but has chronic Parkinson's disease. Eye review, no change in visual acuity. Ear review, no hearing loss. Throat review, no swallowing difficulty. Neck review, no stiffness. Cardiac review, she recently completed a stress test that was unremarkable of any atherosclerotic heart disease. Pulmonary: No cough. No hemoptysis. GI: No dyspepsia. : As per HPI. Vascular: No claudication. Psychological: Chronic anxiety. Neurological: Chronic Parkinson's disease. Skin: No ulcerations. She does have right foot and pretibial surface cellulitis on visual inspection and some erythema and warmth to the dorsal surface of her left foot as well. MEDICATIONS: Outpatient medications included hydrochlorothiazide, Azilect, multivitamin, Toprol, Synthroid, Comtan and carbidopa and levodopa (Rytary ER). SOCIAL HISTORY: The patient is a nondrinker, nonsmoker. 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 FAMILY HISTORY: Noncontributory. PHYSICAL EXAMINATION: VITAL SIGNS: The patient is in a normal sinus rhythm on the hospital monitor. Temperature 97.8, respirations 19, pulse 90, blood pressure 137/82. Pulse ox 97% on room air. HEENT: Head normocephalic, atraumatic. Eyes: No icterus. Ears: Clear. Throat: Noninjected. Neck: Supple. HEART: Regular S1, S2. LUNGS: Clear to auscultation. ABDOMEN: Soft. No palpable organomegaly. No rebound. No guarding. No tenderness. EXTREMITIES: Right greater than left foot cellulitis involving the dorsal surfaces of both feet and the pretibial surface of her right leg. VASCULAR: Both legs warm to touch. SKIN: No ulcerations. NEUROLOGIC: Consistent with chronic Parkinson's disease. PSYCHOLOGICAL: Chronic anxiety. LABORATORY DATA: White count 11,100, hemoglobin 11.7, hematocrit 38.0, platelets 379,000. Sodium 145, K 4.0, chloride 104, bicarb 30, BUN 38, creatinine 1.1, random blood sugar 96. Bilirubin 0.80, AST 49, ALT 20 and alk phos 88. Urinalysis showed many bacteria and too numerous to count red blood cells. Foot x-ray of her right foot was reviewed. It showed no evidence of fracture. No subcutaneous swelling of her soft tissues. IMPRESSION: A 76-year-old female with cellulitis of her feet, comorbidities of chronic hypertension, Parkinson's disease, hypothyroidism, polycythemia vera, anemia of chronic disease, degenerative arthritis, history of left renal cell carcinoma and right renal stone with recently placed ureteral stent. PLAN: Plan is to admit this patient. Check blood and urine cultures. She was given 1 g of Zosyn in the ER and will be ordered to receive Ancef 1 g IV q. 8. I did discuss with the patient her claim of penicillin allergy. It does not involve hives or respiratory distress, but merely GI upset. She will be continued on hydrochlorothiazide 25 mg p.o. daily, Ancef 1 g IV q. 8, Synthroid 150 mcg p.o. daily, Toprol XL 25 mg p.o. daily, Tylenol 650 p.o. q. 6 hours p.r.n. pain or temperature greater than 101 and Zofran 4 mg IV q. 8. The patient has orders for a heart-healthy, soft bland diet. Bathroom privileges with assistance, fall precautions and out of bed to chair with assistance. All of the above was reviewed. I have also ordered physical therapy for ambulation safety. All of the above was reviewed in detail with the patient, nursing, Dr. Venkata Donato from the ER, her son at the bedside and all questions were answered. Greater than 75 minutes was spent in the care and management, review of x-rays, labs, medication and outlining of orders and discussion of this patient with the pharmacy staff as well. All questions were answered. Jimena Rockwell MD MTDD
[2017-05-10] MEDS: Levothyroxine 150 MCG TAB PO SCH (05:46)
[2017-05-10] MEDS: ceFAZolin 1 gm in NS 1 GM/100 ML BAG IVPB SCH ×3 (05:46→22:26)
[2017-05-10] MEDS: Multivitamin Therapeutic Tab PO SCH (09:19)
[2017-05-10] MEDS: Metoprolol Succinate 25 mg XL Tab PO SCH (09:19)
[2017-05-11] MEDS: Levothyroxine 150 MCG TAB PO SCH (05:41)
[2017-05-11] MEDS: ceFAZolin 1 gm in NS 1 GM/100 ML BAG IVPB SCH ×3 (05:41→21:26)
[2017-05-11] MEDS: Metoprolol Succinate 25 mg XL Tab PO SCH (08:37)
[2017-05-11] MEDS: Multivitamin Therapeutic Tab PO SCH (08:37)
[2017-05-11 08:51] LABS: MEAN CELL VOLUME 85.6 fl (80.0-105.0); MEAN CORPUSCULAR HGB CONC 30.4 g/dl (31.0-37.0); RBC 4.23 10^6/uL (3.5-6.1); RED CELL DISTRIBUTION WIDTH 20.7 % (11.5-14.5); WHITE BLOOD COUNT 8.6 10^3/ul (4.5-11.0)
[2017-05-12] MEDS: Levothyroxine 150 MCG TAB PO SCH (06:21)
[2017-05-12] MEDS: ceFAZolin 1 gm in NS 1 GM/100 ML BAG IVPB SCH ×3 (06:21→21:35)
--- NOTE | 2017-05-12 08:34 | PN ---
DATE: 05/10/2017 SUBJECTIVE: This 76-year-old female was examined at her bedside and this case was discussed in detail with herself and her nurse Agueda Taylor, registered nurse. The patient was seen at bed rest. She denied any fever, chills, chest pain or shortness of breath. She is receiving parenteral antibiotics in the setting of right foot and pretibial surface cellulitis and her foot x-rays were reviewed and showed no evidence of fracture, dislocation or osteomyelitis. PHYSICAL EXAMINATION: VITAL SIGNS: Her temperature is 98.1, respirations 18, pulse 67 and blood pressure 149/74, with a pulse ox of 95% room air. HEENT: Head normocephalic, atraumatic. Eyes, no icterus. Ears, clear. Throat, noninjected. NECK: Supple. HEART: Regular S1, S2. LUNGS: Clear. ABDOMEN: Soft. EXTREMITIES: No edema. Her right foot has improvement in cellulitis, but it is still present on the dorsum of her foot. Left foot cellulitis is reduced to her first metatarsal area. There is no edema. There is no cyanosis. SKIN: Has no ulcerations. NEUROLOGIC: Unchanged, chronic parkinsonism. PSYCHOLOGICAL: Chronic anxiety. LABORATORY DATA: Blood culture no growth at 24 hours. White count 11,100, hemoglobin 11.7, hematocrit 38.0, platelets 379,000. Sodium 145, K 4.0, chloride 104, bicarb 30, BUN 38, creatinine 1.1, random blood sugar 96. Bilirubin 0.8, AST 49, ALT 20, alk phos 88. C-reactive protein 4.63, reference range less than 3.0. Urinalysis showed too numerous to count red blood cells and many bacteria. IMPRESSION: A 76-year-old female with right foot cellulitis, comorbidities of chronic hypertension, hypothyroidism, history of Parkinson's disease, left renal cell carcinoma, history of ureteral stent in the right ureter, status post mild hydronephrosis and a right pelvic kidney stone. PLAN: As discussed with the patient and nursing, will be to obtain physical therapy for ambulation safety given patient's issues with Parkinson's disease and rigidity. She has been advised to follow her Parkinson medication prescription as outlined, to ambulate with assistance and physical therapy. She will continue on Toprol XL 25 mg p.o. daily, multivitamin 1 tablet daily, Synthroid 150 mcg p.o. daily, carbidopa-levodopa 25-100 tablet four times daily, hydrochlorothiazide 25 mg p.o. daily, Ancef 1 g IV q. 8 hours. She continues on Azilect and Comtan medications as outlined by Dr. Murray. Urine cultures have been ordered but not obtained, and a repeat CBC will be ordered for the a.m. Ultimate plan will be to convert this patient to oral antibiotics, ready her for discharge, and she will follow up with her spinning machine tender/oncologist to monitor her for anemia of chronic disease and polycythemia vera, and she will coordinate the timing of her left nephrectomy with Dr. Epperson from Urology and Dr. Krueger, her urological surgeon at [facility]. All of this was discussed in detail with the patient and her nurse at the bedside. Greater than 35 minutes was spent in the care management, review of x-rays, labs, medication and orders with this patient today. All questions were answered. Jimena Rockwell MD MARTIN
--- NOTE | 2017-05-12 08:39 | PN ---
PROCEDURE DATE: 05/11/2017 SUMMARY: This 76-year-old female was examined at her bedside and the case was reviewed in detail with herself and her nurse, Radha Taylor, registered nurse. The patient remains hospitalized on parenteral antibiotics for right foot cellulitis and at present remains afebrile. The nurse reports that the patient has difficulty with compliance with her Parkinson medication, but was ambulated this morning with physical therapy with a rolling walker. At present, the patient denies fever, chills, chest pain or shortness of breath. PHYSICAL EXAMINATION: VITAL SIGNS: Temperature of 98.3, respirations 20, pulse 73 and blood pressure 144/75 with a pulse ox of 96% on room air. Urine output was not recorded. HEENT: Head: Normocephalic, atraumatic. Eyes, no icterus. Ears, clear. Throat, noninjected. NECK: Supple. HEART: Regular S1, S2. LUNGS: Clear to auscultation. ABDOMEN: Soft. EXTREMITY: Improving right lower extremity cellulitis. VASCULAR: Legs warm to touch. PSYCHOLOGICAL: Alert and anxious. NEURO: Unchanged. LABORATORY DATA: Blood cultures show no growth at 48 hours. White count 8600, hemoglobin 11, hematocrit 36.2, platelets 348,000. Sodium 145, K 4.0, chloride 104, bicarb 30, BUN 38, creatinine 1.1, random blood sugar 96. IMPRESSION: A 76-year-old female with cellulitis of the right foot. Blood cultures are negative to date. Right foot x-ray showed no evidence of fracture, showed no evidence of soft tissue swelling or osteomyelitis. PLAN: As discussed with the patient and nursing, will be to continue parenteral Ancef 1 g IV q.8h., Parkinson's medicines from home as outlined, hydrochlorothiazide 25 mg p.o. daily, Sinemet 25/100 p.o. four times a day, Synthroid 150 mcg p.o. daily, multivitamin 1 tablet daily, Toprol XL 25 mg p.o. daily, heart healthy diet. The patient is ordered to have physical therapy for ambulation safety and the ultimate plan will be to switch this patient to oral antibiotics for her to complete this as an outpatient. Of note, the patient will need to discuss the timing of her elective left nephrectomy for renal cell cancer with Dr. Puri and Dr. Epperson from Urology, and she will need to have medical clearance from her electric motor repairer-oncologist, Dr. Mcdermott, as well. All of the above was discussed in detail with the patient at the bedside. All questions were answered. Jimena Rockwell MD MARTIN
[2017-05-12] MEDS: Metoprolol Succinate 25 mg XL Tab PO SCH (09:45)
[2017-05-12] MEDS: Multivitamin Therapeutic Tab PO SCH (09:45)
[2017-05-12 11:40] LABS: T4 11.1 ug/dL (5.5-11.0)
[2017-05-12 17:47] VITALS: RESP 20; TEMP 98.3
[2017-05-12] MEDS ORDERED: ceFAZolin 1 gm in NS 1 GM/100 ML BAG IVPB SCH (22:00)
[2017-05-13] MEDS ORDERED: Levothyroxine 125 MCG TAB PO SCH (06:00)
[2017-05-13] MEDS: ceFAZolin 1 gm in NS 1 GM/100 ML BAG IVPB SCH ×2 (06:15→13:40)
[2017-05-13 07:06] LABS: BLOOD UREA NITROGEN 24 mg/dL (7-21); CALCIUM 9.7 mg/dL (8.4-10.5); GFR AFRICAN-AMERICAN > 60; GFR NON-AFRICAN AMERICAN > 60
[2017-05-13 07:45] VITALS: BP 145/65; PULSE 80; O2SAT 99
--- NOTE | 2017-05-13 08:23 | PN ---
DATE: 05/12/2017 SUBJECTIVE: This 76-year-old female was examined at the bedside and the case was reviewed in detail with her nurse, Ev Stanley, registered nurse. The patient remains weak and deconditioned. She is being treated with parenteral antibiotics for right foot cellulitis and of note was noted to have an elevated uric acid level of 9.0 with normal being 6.2 or less in the setting of a right great metatarsal erythema in addition to cellulitis of the forefoot and pretibial skin surface. The patient denies any fever or chills and was noted to have a slightly elevated T4 of 11.1 with TSH of 0.2 in the setting of chronic hypothyroidism and Synthroid 150 mcg p.o. daily. This was discussed in detail with the patient and nursing and her Synthroid dosing will be readjusted. PHYSICAL EXAMINATION: VITAL SIGNS: Temperature is 98.5, respirations 18, pulse 84, blood pressure 165/82 with pulse ox 97% on room air. HEENT: Head normocephalic, atraumatic. Eyes: No icterus. Ears: Clear. Throat: Noninjected. NECK: Supple. HEART: Regular S1, S2. LUNGS: Clear. ABDOMEN: Soft. EXTREMITIES: No edema. Right foot cellulitis improving. Right great toe erythema. VASCULAR: Excellent pedal pulses bilaterally. SKIN: No ulcerations. NEURO: Chronic parkinsonism. LABORATORY DATA: Blood cultures no growth at 3 days. Sodium 145, K 4.0, chloride 104, bicarb 30, BUN 38, creatinine 1.1, random blood sugar 96. Uric acid 9.0. C-reactive protein 4.63. White count 8600, hemoglobin 11, hematocrit 36.2, platelets 348,000. IMPRESSION: Right foot cellulitis, improving; acute gout; chronic parkinsonism; anemia of chronic disease; history of polycythemia vera; chronic hypertension; hypothyroidism; degenerative arthritis; chronic anxiety. PLAN: Discussed with the patient and nursing will be to order physical therapy for reconditioning and gait training while continuing heart-healthy diet. She has been ordered to have an echocardiogram for completeness sake because of her history of mitral valve prolapse in her past. I will continue on metoprolol succinate 25 mg p.o. daily, multivitamin 1 tablet daily Synthroid has been dose reduced to 125 mcg p.o. daily, Sinemet 25-100 p.o. q.i.d., hydrochlorothiazide 25 mg p.o. daily, Parkinson medication from home as labeled, colchicine 0.6 mg p.o. daily and Ancef will be continued at 1 g IV q. 8 hours. All of the above was reviewed in detail with the patient and nursing. Greater than 35 minutes were spent in the care of this patient today. Based on results, adjustments will be made. Ultimate plan is for discharge to home when medically stable. Jimena Rockwell MD MTDD
[2017-05-13] MEDS: Metoprolol Succinate 25 mg XL Tab PO SCH (08:29)
[2017-05-13] MEDS: Multivitamin Therapeutic Tab PO SCH (08:29)
--- NOTE | 2017-05-13 11:16 | CARD ---
APPROVED REPORT EXAM: Two-dimensional and M-mode echocardiogram with Doppler and color Doppler. INDICATION EVALUATE HEART VALVES 2D DIMENSIONS Left Atrium (2D)4.9 (1.6-4.0cm)IVSd1.1 (0.7-1.1cm) LVDd3.9 (3.9-5.9cm)LVOT Diameter1.7 (1.8-2.4cm) PWd1.4 (0.7-1.1cm)LVDs2.8 (2.5-4.0cm) FS (%) 29.5 %LVEF (%)57.1 (>50%) M-Mode DIMENSIONS Aortic Root1.70 (2.2-3.7cm)Aortic Cusp Exc.0.80 (1.5-2.0cm) Aortic Valve AoV Peak Rfvcjdsi905.0cm/sAoV VTI76.3cmAO Peak GR.49mmHg LVOT Peak Reyosuti467.0cm/sLVOT VTI27.70cmAO Mean GR.27mmHg TERRIE (VMAX)0.63vd5KXZ (VTI)0.82cm2 Mitral Valve MV E Iyyklwdd511.0cm/sMV A Zrdmgmlh268.0cm/sE/A ratio1.1 TDI E/Lateral E'0.0E/Medial E'0.0 Tricuspid Valve TR Peak Aftqjwcn220yn/sRAP WGGVYBWA24mlXaHC Peak Gr.48mmHg [id number] LEFT VENTRICLE The left ventricle is normal size. There is borderline concentric left ventricular hypertrophy. The left ventricular function is normal. The left ventricular ejection fraction is within the normal range. There is normal LV segmental wall motion. Transmitral Doppler flow pattern is Grade II-pseudonormal filling dynamics. RIGHT VENTRICLE The right ventricle is normal size. There is normal right ventricular wall thickness. The right ventricular systolic function is normal. ATRIA The left atrium is moderately dilated. The right atrium is mildly dilated. AORTIC VALVE The aortic valve is severely thickened. There is trace aortic regurgitation. There is moderate to severe valvular aortic stenosis. MITRAL VALVE The mitral valve is moderately thickened. Mitral regurgitation is moderate to severe. TRICUSPID VALVE There is moderate tricuspid regurgitation. There is moderate pulmonary hypertension. GREAT VESSELS The aortic root is normal in size. The IVC is normal in size and collapses >50% with inspiration. PERICARDIAL EFFUSION There is a trace loculated anterior pericardial effusion. <Conclusion> The left ventricle is normal size. There is borderline concentric left ventricular hypertrophy. The left ventricular function is normal. The left ventricular ejection fraction is within the normal range. There is normal LV segmental wall motion. Transmitral Doppler flow pattern is Grade II-pseudonormal filling dynamics. The aortic valve is severely thickened. There is moderate to severe valvular aortic stenosis. Mitral regurgitation is moderate to severe. There is moderate tricuspid regurgitation. There is moderate pulmonary hypertension.
--- NOTE | 2017-05-14 14:09 | DS ---
DISCHARGE DATE: 05/13/2017 FINAL DIAGNOSES: Right leg cellulitis, improved; acute gout of the right great toe; chronic hypertension; chronic Parkinson disease; hypothyroidism; history of polycythemia vera; anemia of chronic disease; left renal cell cancer, awaiting nephrectomy; history of right hydronephrosis stent and right renal pelvic stone, stable; valvular heart disease on 2D echocardiogram performed on 05/13/2017, unremarkable outpatient stress test performed on 04/30/2017. DISCHARGE DIET: Sodium 2 g, heart-healthy. DISCHARGE MEDICATIONS: Hydrochlorothiazide 25 mg p.o. daily, Azilect 1 mg p.o. daily, multivitamin one tablet daily, Toprol-XL 50 mg p.o. daily, Synthroid 125 mcg p.o. daily, Comtan 200 mg p.o. q.i.d., carbidopa/levodopa one tablet of 25/100 p.o. q.i.d., colchicine 0.6 mg p.o. daily #5, Keflex 500 mg p.o. t.i.d. for five days. SUMMARY: This 76-year-old female was admitted to [facility] with right foot cellulitis and was noted on blood cultures to have no growth and was treated successfully with IV Ancef converted to oral Keflex at the time of discharge. Patient was also noted to have an elevated uric acid level of 9.0 which prompted the initiation of colchicine as outlined. The patient at the time of discharge had vital signs showing temperature of 98.3, respirations 20, pulse 80, blood pressure 145/65, and pulse ox 99% on room air. White count 8600, hemoglobin 11, hematocrit 36.2, and platelets 348,000. Sodium 144, potassium 3.8, chloride 106, bicarb 28. BUN 24, creatinine 0.9. Random blood sugar 109. T4 level high at 11.1. TSH level 0.2, low. Synthroid was dose reduced as a result from 150 mcg to 125 mcg p.o. daily. Right foot x-rays showed no evidence of fracture, dislocation, or osteomyelitis; and a 2D echocardiogram was reviewed and showed normal left ventricular size, function, and ejection fraction with normal left ventricular wall motion and evidence of moderate aortic stenosis, moderate mitral regurgitation, moderate tricuspid regurgitation, which will require serial echocardiography and followup with Cardiology upon discharge. Patient is discharged to home. She will follow up with Dr. 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 All of the above was discussed in detail with the patient at bedside. All questions were answered. Greater than 35 minutes was spent in the care management and coordination of discharge, medication, and orders for this patient today. Jimena Rockwell MD
== END 2017-05-13 16:15 | disposition home health service (06) | DRG 603 ==
LOC: ED 09:26 → ERH 12:00 → 5RNO 13:30
PROVIDERS: ADMIT Internal Medicine; ATTEND Internal Medicine
DX: L03.116 Cellulitis of left lower limb (principal); G20 Parkinson's disease; C64.2 Malignant neoplasm of left kidney, except renal pelvis; I08.3 Combined rheumatic disorders of mitral, aortic and tricuspid valves; D45 Polycythemia vera; D63.8 Anemia in other chronic diseases classified elsewhere; L03.115 Cellulitis of right lower limb; E03.9 Hypothyroidism, unspecified; I10 Essential (primary) hypertension; M1A.9XX0 Chronic gout, unspecified, without tophus (tophi); Z85.850 Personal history of malignant neoplasm of thyroid; Z87.442 Personal history of urinary calculi; Z90.710 Acquired absence of both cervix and uterus

== ENCOUNTER 2017-06-23 16:31 | Inpatient (IN) | payer MEDICARE ==
--- NOTE | 2017-06-23 16:52 | ED PDOC ---
Arrival/HPI - General Chief Complaint: Shortness Of Breath Time Seen by Provider: 06/23/17 16:37 Historian: Patient, EMS - History of Present Illness Time/Duration: Other (3 days) Symptom Onset: Sudden Symptom Course: Unchanged Severity Level: Mild Activities at Onset: Rest Associated Symptoms (Text): 06/23/17 16:49 Patient is status post nephrectomy for renal cell carcinoma 4 days ago. She was discharged from the hospital 3 days ago. 3 days ago she developed palpitations and shortness of breath. The shortness of breath waxes and wanes. No chest pain or congestion or URI. No fever. Symptoms began after taking her pain medication. She appears anxious. She spoke with her PMD who directed her to the emergency department. Past Medical History - Past History Past History: No Previous - Infectious Disease Hx of Infectious Diseases: None - Tetanus Immunization Tetanus Immunization: Unknown - Cardiac Hx Hypertension: Yes (chronic) - Pulmonary Hx Respiratory Disorders: No (denies) - Neurological Hx Neurological Disorder: Yes Hx Parkinson's Disease: Yes - Renal Hx Renal Disorder: Yes Other/Comment: renal stent x1 right kidney 03/2017. mass left kidney. mass to l kidney ,will have sx in November 2017. - Endocrine/Metabolic Hx Hypothyroidism: Yes - Hematological/Oncological Hx Blood Disorders: Yes (polycytemia vera) - Integumentary Hx Dermatological Disorder: Yes (rosacea) Other/Comment: 2-2-28 right foot with cellulitis.redness,pain,edema +1. 2-2-18 tip of nose with swelling,redness for a yr now - Musculoskeletal/Rheumatological Hx Musculoskeletal Disorders: No Hx Falls: No - Gastrointestinal Hx Gastrointestinal Disorders: Yes - Genitourinary/Gynecological Hx Genitourinary Disorders: No - Psychiatric Hx Emotional Abuse: No Hx Physical Abuse: No Hx Substance Use: No - Surgical History Hx Hysterectomy: Yes - Anesthesia Hx Anesthesia Reactions: No Hx Malignant Hyperthermia: No - Suicidal Assessment Feels Threatened In Home Enviroment: No Family/Social History - Physician Review Nursing Documentation Reviewed: Yes Family/Social History: Unknown Family HX Smoking Status: Former Smoker (Quit smoking 50 years ago) Hx Alcohol Use: Yes (occasional) Hx Substance Use: No Hx Substance Use Treatment: No Allergies/Home Meds Allergies/Adverse Reactions: Allergies Penicillins Adverse Reaction (Verified 05/09/17 18:32) DIARRHEA Home Medications: Home Meds Medication Instructions Recorded Confirmed Entacapone [Comtan] 200 mg PO QID 01/07/17 05/09/17 Levothyroxine [Synthroid] 150 mcg PO DAILY 01/07/17 05/09/17 Multivitamin/Iron/Folic Acid 1 tab PO DAILY 01/07/17 05/09/17 [Centrum Adults Tablet] Rasagiline Mesylate [Azilect] 1 mg PO DAILY 01/07/17 05/09/17 hydroCHLOROthiazide [Hydrodiuril] 25 mg PO DAILY 01/07/17 05/09/17 Metoprolol Succinate [Toprol Xl] 25 mg PO DAILY 03/11/17 05/09/17 Carbidopa/Levodopa [Rytary ER 1 cap PO QID 04/07/17 05/09/17 36.25 mg-145 mg Cap] Carbidopa/Levodopa 1 each PO QID 05/09/17 05/09/17 [Carbidopa-Levodopa 25-100 Tab] Review of Systems - Physician Review All systems were reviewed & negative as marked: Yes - Review of Systems Constitutional: Fatigue. absent: Fevers Respiratory: SOB. absent: Cough, Sputum, Wheezing Cardiovascular: Palpitations. absent: Chest Pain, Syncope Gastrointestinal: Abdominal Pain. absent: Diarrhea, Nausea, Vomiting Genitourinary Female: absent: Dysuria, Frequency, Hematuria Neurological: absent: Headache, Dizziness, Focal Weakness Physical Exam Vital Signs Temp Pulse Resp BP Pulse Ox 06/23/17 16:53 97.1 F L 95 H 20 159/70 H 96 06/23/17 16:51 22 Temperature: Afebrile Blood Pressure: Normal Pulse: Regular Respiratory Rate: Normal Appearance: Positive for: Well-Appearing, Non-Toxic, Comfortable, Other (Anxious ) Pain Distress: None Mental Status: Positive for: Alert and Oriented X 3 - Systems Exam Head: Present: Atraumatic, Normocephalic Pupils: Present: PERRL Extroacular Muscles: Present: EOMI Conjunctiva: Present: Normal Mouth: Present: Moist Mucous Membranes Pharnyx: No: ERYTHEMA, EXUDATE, TONSILS ENLARGED Neck: Present: Normal Range of Motion Respiratory/Chest: Present: Clear to Auscultation, Good Air Exchange, Decreased Breath Sounds. No: Respiratory Distress, Accessory Muscle Use Cardiovascular: Present: Regular Rate and Rhythm, Normal S1, S2. No: Murmurs Abdomen: Present: Tenderness, Normal Bowel Sounds, Other (Mild generalized abdominal tenderness. Wounds are clean and dry with no signs of infection.). No : Distention, Peritoneal Signs, Rebound, Guarding Back: Present: Normal Inspection. No: CVA Tenderness, Midline Tenderness, Paraspinal Tenderness Upper Extremity: Present: Normal Inspection. No: Cyanosis, Edema Lower Extremity: Present: Normal Inspection, Edema (Trace edema), Normal ROM, Neurovascularly Intact. No: CALF TENDERNESS, Nataly's Sign, Tenderness, Erythema , Deformity Neurological: Present: GCS=15, CN II-XII Intact, Speech Normal, Motor Func Grossly Intact Skin: Present: Warm, Dry, Normal Color. No: Rashes Psychiatric: Present: Alert, Oriented x 3, Normal Insight, Normal Concentration Medical Decision Making ED Course and Treatment: 06/23/17 16:54 EKG shows normal sinus rhythm rate approximately 100 with a primary AV block and no acute ST or T-wave changes 06/23/17 18:04 High risk for pulmonary embolus with renal cell carcinoma and recent surgery with palpitations and dyspnea with clear lungs. D-dimer is elevated. Bilateral lower extremity Dopplers have been ordered. VQ scan has been ordered rather than a CTA as the patient just had a nephrectomy and we will avoid the dye load to her single kidney. 06/23/17 18:38 Bilateral lower extremity venous Dopplers as read by the radiologist are negative for DVT. Discussed the case in detail with . Patient will be admitted to telemetry because of her palpitations. VQ scan is currently pending. Dr. Rockwell will follow it. Pulmonary embolus is much less likely now. - Lab Interpretations Lab Results: 06/23/17 16:50 06/23/17 16:50 Lab Results 06/23/17 17:15: Urine Color Yellow, Urine Appearance Sl cloudy, Urine pH 6.0, Ur Specific [place] 1.025, Urine Protein 100 H, Urine Glucose (UA) Negative, Urine Ketones Trace H, Urine Blood Large H, Urine Nitrate Negative, Urine Bilirubin Negative, Urine Urobilinogen 0.2, Ur Leukocyte Esterase Trace H, Urine RBC Tntc, Urine WBC 10 - 15, Ur Epithelial Cells 3 - 4, Urine Bacteria Large, Urine Other Fiber 06/23/17 16:50: Sodium 141, Chloride 105, Potassium 3.7, Carbon Dioxide 27, Anion Gap 12, BUN 25 H, Creatinine 1.1, Est GFR ( Amer) 59, Est GFR (Non- Af Amer) 48, Random Glucose 112 H, Calcium 9.0, Total Bilirubin 0.8, AST 27, ALT 12, Alkaline Phosphatase 97, Lactate Dehydrogenase 915 H, Total Creatine Kinase 39, Troponin I < 0.01, NT-Pro-B Natriuret Pep 5670 H, Total Protein 6.6, Albumin 3.4, Globulin 3.2, Albumin/Globulin Ratio 1.1 06/23/17 16:50: pO2 63 H, VBG pH 7.40, VBG pCO2 47.0, VBG HCO3 29.1 H, VBG Total CO2 30.5 H, VBG O2 Sat (Calc) 93.1 H, VBG Base Excess 3.5 H, VBG Potassium 3.7, Sodium 140.0, Chloride 108.0 H, Glucose 113 H, Lactate 0.6 L, FiO2 21.0, Venous Blood Potassium 3.7 06/23/17 16:50: PT 13.3 H, INR 1.16 H, APTT 30.5, D-Dimer, Quantitative 675 H 06/23/17 16:50: WBC 9.9, RBC 4.22, Hgb 10.6 L, Hct 33.9 L, MCV 80.3 D, MCH 25.1 , MCHC 31.3, RDW 19.4 H, Plt Count 444, MPV 11.1 H, Gran % 90.3 H, Lymph % (Auto ) 4.7 L, [place] % (Auto) 2.8, Eos % (Auto) 1.9, Baso % (Auto) 0.3, Gran # 8.92 H, Lymph # (Auto) 0.5 L, [place] # (Auto) 0.3, Eos # (Auto) 0.2, Baso # (Auto) 0.03, Neutrophils % (Manual) Pending, Lymphocytes % (Manual) Pending, Monocytes % ( Manual) Pending - RAD Interpretation Radiology Orders: 06/23/17 16:45 CHEST ONE VIEW [RAD] Stat DUPLEX LOWER EXTRM VEIN BILAT [US] Stat 06/23/17 16:46 LUNG PERF & VENT SCAN [NM] Stat Chest 1 view shows a positive left-sided infiltrate. 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 Ulcer: No History Surgical Site Infection Following: None - Disposition Have Diagnosis and Disposition been Completed?: Yes Diagnosis: Pneumonia, Dyspnea, Palpitations, Renal cell carcinoma Disposition: HOSPITALIZED Disposition Time: 18:39 Patient Plan: Observation Condition: FAIR Referrals: Jimena Rockwell MD [Primary Care Provider] - Follow up with primary Forms: [employer] (Polish)
[2017-06-23 17:17] LABS: VENOUS BLOOD GAS BASE EXCESS 3.5 mmol/L (0.0-2.0); VENOUS BLOOD GAS PO2 63 mm/Hg (30-55)
[2017-06-23 17:22] LABS: BASO # 0.03 K/mm3 (0.0-2.0); BASO % 0.3 % (0.0-3.0); EOS # 0.2 (0.0-0.7); EOS % 1.9 % (1.5-5.0); GRAN # 8.92 (1.4-6.5); GRAN % 90.3 % (50.0-68.0); HEMOGLOBIN 10.6 g/dL (12.0-16.0); LYMPH # 0.5 (1.2-3.4); LYMPH % 4.7 % (22.0-35.0); MEAN CELL VOLUME 80.3 fl (80.0-105.0); MEAN CORPUSCULAR HEMOGLOBIN 25.1 pg (25.0-35.0); MEAN CORPUSCULAR HGB CONC 31.3 g/dl (31.0-37.0); MEAN PLATELET VOLUME 11.1 fl (7.0-11.0); MONO # 0.3 (0.1-0.6); MONO % 2.8 % (1.0-6.0); PLATELET COUNT 444 10^3/uL (120.0-450.0); RBC 4.22 10^6/uL (3.5-6.1); RED CELL DISTRIBUTION WIDTH 19.4 % (11.5-14.5); WHITE BLOOD COUNT 9.9 10^3/ul (4.5-11.0)
[2017-06-23 17:23] LABS: ALB/GLOB RATIO 1.1 (1.1-1.8); ALBUMIN 3.4 g/dL (3.0-4.8); ALT/SGPT 12 U/L (7-56); AST/SGOT 27 U/L (14-36); BLOOD UREA NITROGEN 25 mg/dL (7-21); GFR AFRICAN-AMERICAN 59; GFR NON-AFRICAN AMERICAN 48
[2017-06-23 17:29] LABS: URINE BILIRUBIN NEGATIVE (NEGATIVE); URINE BLOOD LARGE (NEGATIVE); URINE GLUCOSE (UA) NEGATIVE (NEGATIVE); URINE LEUKOCYTE ESTERASE TRACE Leu/uL (NEGATIVE); URINE PROTEIN 100 mg/dL (<30 mg/dL); URINE UROBILINOGEN 0.2 E.U./dL (<1 E.U./dL)
[2017-06-23 17:30] LABS: URINE APPEARANCE SL CLOUDY (CLEAR); URINE COLOR YELLOW (YELLOW)
[2017-06-23 17:34] LABS: B-TYPE NATRIURETIC PEPTIDE 5670 pg/mL (0-450); TROPONIN I < 0.01 ng/mL
[2017-06-23 17:36] LABS: PROTHROMBIN TIME 13.3 SECONDS (9.4-12.5)
[2017-06-23 17:37] LABS: INR 1.16 (0.93-1.08); PARTIAL THROMBOPLASTIN TIME 30.5 Seconds (25.1-36.5)
[2017-06-23 17:56] LABS: URINE BACTERIA LARGE (NEG); URINE RBC TNTC /hpf (0-2)
[2017-06-23] MEDS ORDERED: levoFLOXacin 500 mg in D5W 500 MG/100 ML BAG IVPB STA (18:12)
--- NOTE | 2017-06-23 18:39 | RAD ---
PROCEDURE: CHEST RADIOGRAPH, 1 VIEW HISTORY: sob COMPARISON: 03/21/2017 FINDINGS: LUNGS: Left lower lobe infiltrate a new finding compared to the prior study. PLEURA: No pneumothorax or pleural fluid seen. CARDIOVASCULAR: No radiographic findings to suggest acute or significant cardiovascular disease. OSSEOUS STRUCTURES: No significant abnormalities. VISUALIZED UPPER ABDOMEN: Normal. OTHER FINDINGS: None. IMPRESSION: Large, new and presumed acute left lower lobe infiltrate/pneumonia.
[2017-06-23 19:11] LABS: ATYPICAL LYMPHOCYTE 1 % (0.0-0.0); BAND 5 % (0-2); HYPOCHROMIA 1+; LYMPHOCYTE 6 % (22.0-35.0); MONOCYTE 2 % (1.0-6.0); PLATELET ESTIMATE NORMAL (NORMAL); POIKILOCYTOSIS SLIGHT
[2017-06-23 19:12] LABS: EOSINOPHIL 4 % (0.0-3.0); NEUTROPHIL 82 % (50.0-70.0)
[2017-06-23 19:13] LABS: MICROCYTOSIS 1+; OVALOCYTES 2+; TEAR DROP CELLS SLIGHT
[2017-06-23] MEDS ORDERED: guaiFENesin DM 100 mg-10 mg/5 ml UD PO PRN (19:20)
[2017-06-23] MEDS ORDERED: Cefepime (Maxipime) 1 g Inj IVPB SCH (19:30)
[2017-06-23] MEDS: Levalbuterol 0.63 MG/3 ML Inhal Soln UD IH SCH (19:42)
--- NOTE | 2017-06-23 19:59 | US ---
HISTORY: Leg pain and swelling. Evaluate for DVT PHYSICIAN(S): Raulito Granados MD. TECHNIQUE: Duplex sonography and color-flow Doppler with graded compression were used to evaluate the deep venous systems of both lower extremities. The exam is somewhat limited by edema. FINDINGS: The visualized deep venous systems of both lower extremities are sonographically normal and compressible. Normal wave forms and augmentation are seen. There is no sonographic evidence for deep venous thrombosis in the visualized segments of both lower extremities. IMPRESSION: No sonographic evidence for deep venous thrombosis in the visualized segments of both lower extremities.
[2017-06-23 20:03] LABS: T4 8.4 ug/dL (5.5-11.0)
[2017-06-23] MEDS: Cefepime 1gm in NS 100ml IVPB SCH (21:35)
[2017-06-23] MEDS: Vancomycin 750mg 750 MG/250 ML BAG IVPB SCH (22:38)
[2017-06-24] MEDS: Levalbuterol 0.63 MG/3 ML Inhal Soln UD IH SCH ×4 (02:38→19:24)
[2017-06-24] MEDS ORDERED: Levothyroxine 125 MCG TAB PO SCH ×2 (06:00)
[2017-06-24 06:17] VITALS: BMI 10.1
[2017-06-24] MEDS: Levothyroxine 125 MCG TAB PO SCH (06:34)
[2017-06-24] MEDS: Metoprolol Succinate 50 mg XL Tab PO SCH (09:07)
[2017-06-24] MEDS: Vancomycin 750mg 750 MG/250 ML BAG IVPB SCH ×2 (09:07→21:28)
--- NOTE | 2017-06-24 10:31 | CARD ---
APPROVED REPORT EKG Measurement Heart [id number] <Conclusion> Normal sinus Rythm Possible Septal Infarct Age Old? T Inversion III AND V3..
--- NOTE | 2017-06-24 10:45 | NM ---
COMPARISON: Chest x-ray same day showing left lower lobe infiltrate TECHNIQUE: 30.0 mCi technetium 99-m DTPA aerosol. 4.2 mCI technetium 99-m MAA administered intravenously. FINDINGS: VENTILATION COMPONENT: Normal. PERFUSION COMPONENT: Normal. The report concurs with the preliminary [facility] report IMPRESSION: Lowprobability ventilation perfusion scan for pulmonary embolism.
[2017-06-24] MEDS: Multivitamin With Minerals Tab PO SCH (13:44)
[2017-06-24] MEDS: COMTAN PO SCH ×4 (14:54→22:57)
--- NOTE | 2017-06-24 18:35 | CP.PCM.PN ---
Subjective - Date & Time of Evaluation Date of Evaluation: 06/24/17 Time of Evaluation: 17:00 - Subjective Subjective: Infectious Disease Consultation: June 24, 2017 76 yo female who recently had a nephrectomy for renal cell carcinoma on 2017. She was discharged from the hospital 3 days prior to this hospitalization and developed palpitations and SOB. Her PMD sent her [place] [facility] [place]. At this time, the patient received Ativan for anxiety. She is unable to answer questions at this time. Unclear which kidney was resected. Operation was done laproscopically. Patient was awake, alert, orientated, and very anxious prior to Ativan dosing. PMHx: Renal cell carcinoma, Parkinson's Disease, HTN, Anxiety, Polycytemia Vera, Hypothyroidism PSHx: Laproscopic Nephrectomy Allergies: PCN Social Hx: Former tobacco use stopped 50 years ago Occassional EtOH No illicit drug use Active Medications Acetaminophen (Tylenol 325mg Tab) 650 mg PO Q6H PRN PRN Reason: Fever >100.4 F Famotidine (Pepcid) 20 mg PO HS [facility] Last Admin: 06/23/17 22:49 Dose: 20 mg Guaifenesin/Dextromethorphan (Robitussin Dm) 5 ml PO Q6H PRN PRN Reason: Cough Heparin Sodium (Porcine) (Heparin) 5,000 units SC Q12H [facility] PRN Reason: Protocol Last Admin: 06/24/17 08:29 Dose: Not Given Home Med (Home Med) 1 unit PO DAILY [facility] Home Med (Home Med) 1 unit PO QID [facility] Last Admin: 06/24/17 18:04 Dose: 1 unit Home Med (Home Med) 1 unit PO QID [facility] Last Admin: 06/24/17 18:04 Dose: 1 unit Hydrochlorothiazide (Hydrodiuril) 25 mg PO DAILY [facility] Last Admin: 06/24/17 09:08 Dose: 25 mg Vancomycin HCl (Vancomycin 750 Mg In Ns) 750 mg in 250 mls @ 167 mls/hr IVPB Q12H [facility] PRN Reason: Protocol Last Admin: 06/24/17 09:07 Dose: 167 mls/hr Cefepime HCl (Maxipime 1gm) 1 gm in 100 mls @ 100 mls/hr IVPB Q24H [facility] Last Admin: 06/23/17 21:35 Dose: 100 mls/hr Levalbuterol HCl (Xopenex) 0.63 mg IH Q6H [facility] Last Admin: 06/24/17 13:45 Dose: 0.63 mg Levothyroxine Sodium (Synthroid) 125 mcg PO 0600 [facility] Last Admin: 06/24/17 06:34 Dose: 125 mcg Lorazepam (Ativan) 0.5 mg IVP Q6H PRN; Protocol PRN Reason: Anxiety Last Admin: 06/24/17 13:44 Dose: 0.5 mg Metoprolol Succinate (Toprol Xl) 50 mg PO DAILY [facility] Last Admin: 06/24/17 09:07 Dose: 50 mg Multivitamins/Minerals (Therapeutic-M Tab) 1 tab PO 0800 [facility] Last Admin: 06/24/17 13:44 Dose: 1 tab Ondansetron HCl (Zofran Inj) 4 mg IVP Q6H PRN PRN Reason: Nausea/Vomiting Family Hx: Unable to Obtain ROS: Unable to Obtain Objective - Vital Signs/Intake and Output Vital Signs (last 24 hours): Temp Pulse Resp BP Pulse Ox 98.3 F 83 20 160/73 H 96 06/24/17 18:00 06/24/17 18:00 06/24/17 18:00 06/24/17 18:00 06/24/17 18:00 Intake and Output: 06/24/17 06/24/17 06:59 18:59 Intake Total 240 600 Output Total 625 600 Balance -385 0 - Medications Medications: Current Medications Acetaminophen (Tylenol 325mg Tab) 650 mg PO Q6H PRN PRN Reason: Fever >100.4 F Famotidine (Pepcid) 20 mg PO HS [facility] Last Admin: 06/23/17 22:49 Dose: 20 mg Guaifenesin/Dextromethorphan (Robitussin Dm) 5 ml PO Q6H PRN PRN Reason: Cough Heparin Sodium (Porcine) (Heparin) 5,000 units SC Q12H [facility] PRN Reason: Protocol Last Admin: 06/24/17 08:29 Dose: Not Given Home Med (Home Med) 1 unit PO DAILY [facility] Home Med (Home Med) 1 unit PO QID [facility] Last Admin: 06/24/17 18:04 Dose: 1 unit Home Med (Home Med) 1 unit PO QID [facility] Last Admin: 06/24/17 18:04 Dose: 1 unit Hydrochlorothiazide (Hydrodiuril) 25 mg PO DAILY [facility] Last Admin: 06/24/17 09:08 Dose: 25 mg Vancomycin HCl (Vancomycin 750 Mg In Ns) 750 mg in 250 mls @ 167 mls/hr IVPB Q12H [facility] PRN Reason: Protocol Last Admin: 06/24/17 09:07 Dose: 167 mls/hr Cefepime HCl (Maxipime 1gm) 1 gm in 100 mls @ 100 mls/hr IVPB Q24H [facility] Last Admin: 06/23/17 21:35 Dose: 100 mls/hr Levalbuterol HCl (Xopenex) 0.63 mg IH Q6H [facility] Last Admin: 06/24/17 13:45 Dose: 0.63 mg Levothyroxine Sodium (Synthroid) 125 mcg PO 0600 [facility] Last Admin: 06/24/17 06:34 Dose: 125 mcg Lorazepam (Ativan) 0.5 mg IVP Q6H PRN; Protocol PRN Reason: Anxiety Last Admin: 06/24/17 13:44 Dose: 0.5 mg Metoprolol Succinate (Toprol Xl) 50 mg PO DAILY [facility] Last Admin: 06/24/17 09:07 Dose: 50 mg Multivitamins/Minerals (Therapeutic-M Tab) 1 tab PO 0800 [facility] Last Admin: 06/24/17 13:44 Dose: 1 tab Ondansetron HCl (Zofran Inj) 4 mg IVP Q6H PRN PRN Reason: Nausea/Vomiting - Labs Labs: PT 13.3 SECONDS (9.4-12.5) H 06/23/17 16:50 INR 1.16 (0.93-1.08) H 06/23/17 16:50 APTT 30.5 Seconds (25.1-36.5) 06/23/17 16:50 - Constitutional Appears: No Acute Distress, Chronically Ill - Head Exam Head Exam: ATRAUMATIC, NORMOCEPHALIC - Eye Exam Eye Exam: EOMI, PERRL Pupil Exam: NORMAL ACCOMODATION, PERRL - ENT Exam ENT Exam: Mucous Membranes Moist, Normal External Ear Exam, TM's Normal Bilaterally - Neck Exam Neck Exam: Full ROM, Normal Inspection - Respiratory Exam Respiratory Exam: Decreased Breath Sounds. absent: Rales, Rhonchi, Wheezes Additional comments: basilar crackles? - Cardiovascular Exam Cardiovascular Exam: REGULAR RHYTHM, RRR, +S1, +S2 - GI/Abdominal Exam GI & Abdominal Exam: Soft, Normal Bowel Sounds. absent: Distended, Tenderness - Extremities Exam Extremities Exam: Full ROM, Normal Inspection - Neurological Exam Neurological Exam: Alert, Awake, CN II-XII Intact, Oriented x3 - Psychiatric Exam Psychiatric exam: Normal Affect, Normal Mood - Skin Skin Exam: Intact, Normal Color Assessment and Plan - Assessment and Plan (Free Text) Assessment: 76 yo female with recent nephrectomy for Renal Cell Carcinoma brought [place] [facility] for SOB and palpitations. Low probability VQ scan. Left lower lobe pneumonia noted on VQ scan. Unable to obtain information from the patient currently as she is delirious after Ativan dosing. Supportive care. Unclear the patient's reaction to PCN as she is not coherent to ask at this time. Patient had a laproscopic nephrectomy performed less than a week ago at [facility] but I don't know which kidney was resected. Will start Levaquin renally dosed at this time. Thank you for allowing me to participate in the care of the patient, we will follow with you.
[2017-06-24] MEDS ORDERED: levoFLOXacin 500 mg in D5W 500 MG/100 ML BAG IVPB SCH (19:15)
[2017-06-24] MEDS: Cefepime 1gm in NS 100ml IVPB SCH (20:40)
--- NOTE | 2017-06-25 00:40 | CP.PCM.PN ---
Subjective - Date & Time of Evaluation Date of Evaluation: 06/24/17 Time of Evaluation: 23:45 - Subjective Subjective: Pt seen at the request her RN for observation of being drowsy. As per information in her chart she was given her meds for Parkinson's disease and Ativan during the day.She is currently being treated for Pneumonia. Her VS are 153/107 ,repeat BP is 165/79, HR 78 RR 20 T 99.2 O2 sat on 2L O2 by NC 96% Chart reviewed PMH:Laparoscopic Nephrectomy (last week),Renal cell Ca,Parkinson's disease,HTN, Anxiety, Polycythemia vera,Hypothyroidism. Objective - Vital Signs/Intake and Output Vital Signs (last 24 hours): Temp Pulse Resp BP Pulse Ox 98.3 F 77 20 160/73 H 96 06/24/17 18:00 06/24/17 22:00 06/24/17 18:00 06/24/17 18:00 06/24/17 18:00 Intake and Output: 06/24/17 06/25/17 18:59 06:59 Intake Total 600 180 Output Total 600 Balance 0 180 - Medications Medications: Current Medications Acetaminophen (Tylenol 325mg Tab) 650 mg PO Q6H PRN PRN Reason: Fever >100.4 F Famotidine (Pepcid) 20 mg PO HS [facility] Last Admin: 06/24/17 22:57 Dose: Not Given Guaifenesin/Dextromethorphan (Robitussin Dm) 5 ml PO Q6H PRN PRN Reason: Cough Heparin Sodium (Porcine) (Heparin) 5,000 units SC Q12H [facility] PRN Reason: Protocol Last Admin: 06/24/17 20:18 Dose: 5,000 units Home Med (Home Med) 1 unit PO DAILY [facility] Home Med (Home Med) 1 unit PO QID [facility] Last Admin: 06/24/17 22:57 Dose: Not Given Home Med (Home Med) 1 unit PO QID [facility] Last Admin: 06/24/17 22:57 Dose: Not Given Hydrochlorothiazide (Hydrodiuril) 25 mg PO DAILY [facility] Last Admin: 06/24/17 09:08 Dose: 25 mg Vancomycin HCl (Vancomycin 750 Mg In Ns) 750 mg in 250 mls @ 167 mls/hr IVPB Q12H [facility] PRN Reason: Protocol Last Admin: 06/24/17 21:28 Dose: 167 mls/hr Cefepime HCl (Maxipime 1gm) 1 gm in 100 mls @ 100 mls/hr IVPB Q24H [facility] Last Admin: 06/24/17 20:40 Dose: 100 mls/hr Levofloxacin/Dextrose (Levaquin 500mg) 500 mg in 100 mls @ 100 mls/hr IVPB Q48H [facility] PRN Reason: Protocol Last Admin: 06/24/17 19:32 Dose: 100 mls/hr Levalbuterol HCl (Xopenex) 0.63 mg IH Q6H [facility] Last Admin: 06/24/17 19:24 Dose: Not Given Levothyroxine Sodium (Synthroid) 125 mcg PO 0600 [facility] Last Admin: 06/24/17 06:34 Dose: 125 mcg Lorazepam (Ativan) 0.5 mg IVP Q6H PRN; Protocol PRN Reason: Anxiety Last Admin: 06/24/17 13:44 Dose: 0.5 mg Metoprolol Succinate (Toprol Xl) 50 mg PO DAILY [facility] Last Admin: 06/24/17 09:07 Dose: 50 mg Multivitamins/Minerals (Therapeutic-M Tab) 1 tab PO 0800 [facility] Last Admin: 06/24/17 13:44 Dose: 1 tab Ondansetron HCl (Zofran Inj) 4 mg IVP Q6H PRN PRN Reason: Nausea/Vomiting - Labs Labs: PT 13.3 SECONDS (9.4-12.5) H 06/23/17 16:50 INR 1.16 (0.93-1.08) H 06/23/17 16:50 APTT 30.5 Seconds (25.1-36.5) 06/23/17 16:50 - Constitutional Appears: No Acute Distress, Other (Drowsy ,arousable) - Head Exam Head Exam: ATRAUMATIC, NORMAL INSPECTION, NORMOCEPHALIC - Eye Exam Eye Exam: PERRL - ENT Exam ENT Exam: Mucous Membranes Moist - Neck Exam Neck Exam: Normal Inspection - Respiratory Exam Respiratory Exam: Decreased Breath Sounds (in the L lower lung field), NORMAL BREATHING PATTERN. absent: Rales, Rhonchi, Wheezes - Cardiovascular Exam Cardiovascular Exam: Irregular Rhythm, REGULAR RHYTHM, +S1, +S2, Murmur (Gr II/ CATY at L sternal border) - GI/Abdominal Exam GI & Abdominal Exam: Soft, Normal Bowel Sounds. absent: Tenderness - Extremities Exam Extremities Exam: Normal Inspection. absent: Calf Tenderness, Pedal Edema - Back Exam Back Exam: NORMAL INSPECTION - Neurological Exam Additional comments: drowsy,arousable,moves all 4 limbs,talks at times.Noted to be agitated at times - Psychiatric Exam Psychiatric exam: Agitated (at times) - Skin Skin Exam: Dry, Normal Color, Warm Assessment and Plan - Assessment and Plan (Free Text) Assessment: Drowsiness possibly drug induced. Plan: Hold Ativan,observe pt closely/
[2017-06-25] MEDS: Levalbuterol 0.63 MG/3 ML Inhal Soln UD IH SCH ×4 (01:47→19:01)
[2017-06-25] MEDS: Levothyroxine 125 MCG TAB PO SCH (05:26)
[2017-06-25 06:39] LABS: HEMOGLOBIN 10.3 g/dL (12.0-16.0); MEAN CELL VOLUME 80.1 fl (80.0-105.0); MEAN CORPUSCULAR HEMOGLOBIN 24.4 pg (25.0-35.0); MEAN CORPUSCULAR HGB CONC 30.5 g/dl (31.0-37.0); MEAN PLATELET VOLUME 10.8 fl (7.0-11.0); RBC 4.22 10^6/uL (3.5-6.1); RED CELL DISTRIBUTION WIDTH 19.7 % (11.5-14.5)
[2017-06-25 07:00] LABS: CALCIUM 9.1 mg/dL (8.4-10.5)
[2017-06-25] MEDS: Vancomycin 750mg 750 MG/250 ML BAG IVPB SCH ×2 (08:18→18:45)
[2017-06-25] MEDS: Multivitamin With Minerals Tab PO SCH (08:18)
[2017-06-25] MEDS: Metoprolol Succinate 50 mg XL Tab PO SCH (09:28)
[2017-06-25] MEDS: COMTAN PO SCH ×5 (09:29→21:32)
--- NOTE | 2017-06-25 10:51 | HP ---
DATE OF EXAM: 06/24/2017 HISTORY OF PRESENT ILLNESS: This 76-year-old female was examined at her bedside on the cardiac henry in the presence of her son and this case was reviewed in detail with her nurse Judi Savage, registered nurse at her bedside. The patient was admitted to the [facility] with left lower lung pneumonia. The patient is status post a laparoscopic left nephrectomy by Dr. Lopez, urologist at [facility] last . The patient apparently was discharged to home Friday night when she began to feel ill and yesterday afternoon felt short of breath and was advised to come to the emergency room for evaluation where she was noted to have a left lower lobe infiltrate on chest x-ray. She was admitted for treatment of the above. PAST MEDICAL HISTORY: Past history is also significant for longstanding history of polycythemia vera, now with anemia that require treatments with occasional blood cell transfusion as well as Procrit. The patient also has a longstanding history of Parkinson's disease for which she is followed by Dr. Tim Murray from Neurology and a history of degenerative arthritis, hypothyroidism and chronic hypertension. MEDICATIONS: Outpatient medications included HydroDIURIL, Azilect, multivitamin, Toprol-XL, Synthroid, Comtan, Rytary and Tylenol. ALLERGIES: THE PATIENT HAS ALLERGY TO PENICILLIN, IT CAUSES HER TO FEEL NERVOUS, BUT HAS NO HIVES NOR SHORTNESS OF BREATH ASSOCIATED WITH ITS USE. SOCIAL HISTORY: She is a nondrinker, nonsmoker, non IV drug misuser. 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 FAMILY HISTORY: Noncontributory. REVIEW OF SYSTEMS: Constitutional review: She denied fever or chills. Head review: Denied any knowledge of headache or seizure. Eye review: No change in visual acuity. Ear review: No hearing loss. Throat review: No swallowing difficulty. Neck review: No stiffness. Cardiac review: She has a history of moderate aortic stenosis, asymptomatic. GI: No hematemesis. No melena. : No dysuria. Skin: No rash. Vascular: No claudication. Psychological: Anxiety. Neurological: Chronic parkinsonism. HEME; Chronic PCV. PHYSICAL EXAMINATION: VITAL SIGNS: Normal sinus rhythm on the alarm security or surveillance monitor. Temperature 97.8, respirations 20, pulse 80, blood pressure 145/61. Pulse ox 96%. HEENT: Head normocephalic, atraumatic. Eyes: No icterus. Ears: Clear. Throat: Noninjected. Neck: Supple. Heart: Regular S1, S2. Soft systolic ejection murmur. No pathological rubs, murmurs or gallops appreciated. LUNGS: Decreased breath sounds at the left base with rhonchi and wheezing that clears with coughing. ABDOMEN: Soft. There are healed laparoscopic wounds noted. No erythema. No infection noted. EXTREMITIES: Chronic varicose veins. MUSCULOSKELETAL: Degenerative arthritis. SKIN: Without rash. NEUROLOGICAL: Grossly intact, but debilitated. PSYCHOLOGICAL: Anxious. LABORATORY DATA: White count 9900, hemoglobin 10.6, hematocrit 33.9, platelets 444,000. PT/INR 1.16, PTT 30.5. Admission blood gas showed pH 7.40, pCO2 of 47, pO2 63 and bicarb 29 on room air. Sodium 141, K 3.7, chloride 105, bicarb 27, BUN 25, creatinine 1.1, random blood sugar 112. All liver function testing was normal including bilirubin 0.8, AST 27, ALT 12 and alk phos 97. CPK normal at 39. Troponin less than 0.01. BNP 5670. T4 of 8.4 and TSH 1.79 normal. Urinalysis showed large bacteria. Chest x-ray was reviewed. It showed a left lower lung infiltrate. EKG showed normal sinus rhythm. Venous Dopplers of both lower extremities were reviewed. There was no evidence of DVT. A V/Q scan was reviewed and it showed no evidence of pulmonary embolism. IMPRESSION: A 76-year-old female with postoperative left lower lung pneumonia, possibly nosocomial related with history of anxiety neurosis, chronic parkinsonism, deconditioning, chronic hypertension, hypothyroidism, anemia of chronic disease, history of polycythemia vera and degenerative arthritis. She is status post recent left nephrectomy for renal carcinoma. PLAN: The plan as discussed with the patient, nursing and family at bedside will be to maintain this patient on the cardiac unit and she is awaiting Infectious Disease consultation with Dr. Ceja. She has an order for physical therapy for ambulation safety and has orders for pulse oximetry q. shift as well as incentive spirometry and a heart-healthy soft bland diet. She is wearing 2 L of nasal O2 p.r.n. She will be continued on Zofran 4 mg IV q. 6 hours p.r.n. nausea and vomiting, Xopenex inhalational therapy q. 6 hours 0.63 mg, vancomycin 750 mg IV q. 12, Tylenol 650 mg p.o. q. 6 hours p.r.n. pain or temperature greater than 101, Toprol-XL 50 mg p.o. daily, multivitamin 1 tablet daily, Synthroid 125 mcg p.o. daily, Sinemet - levodopa 25/100 p.o. q.i.d., Robitussin DM 5 mL p.o. q. 6 hours p.r.n. cough, Pepcid 20 mg p.o. daily, Maxipime 1 g IV q. 24, HydroDIURIL 25 mg p.o. daily, heparin 5000 units subcu q. 12 and Ativan 0.5 mg p.o. q. 6 hours p.r.n. anxiety. We will await results of blood and urine cultures. She is being evaluated for transitional care rehab and greater than 75 minutes was spent in the care and management, review of labs, x-rays, orders and discussion of this case with nursing and co-consultants and family. All questions were answered. Jimena Rockwell MD MTDD
--- NOTE | 2017-06-25 18:24 | CP.PCM.CON ---
History of Present Illness - History of Present Illness History of Present Illness: See progress note today. Past Patient History - Infectious Disease Hx of Infectious Diseases: None - Tetanus Immunizations Tetanus Immunization: Unknown - Past Social History Smoking Status: Former Smoker - CARDIAC Hx Hypercholesterolemia: Yes Hx Hypertension: Yes - PULMONARY Hx Respiratory Disorders: No (denies) - NEUROLOGICAL Hx Neurological Disorder: Yes Hx Parkinson's Disease: Yes - RENAL Other/Comment: renal disease - ENDOCRINE/METABOLIC Hx Hypothyroidism: Yes - HEMATOLOGICAL/ONCOLOGICAL Hx Blood Disorders: Yes (polycytemia vera) - INTEGUMENTARY Hx Dermatological Problems: Yes (rosacea) Other/Comment: 05-09-27 right foot with cellulitis.redness,pain,edema +1. 2-218 tip of nose with swelling,redness for a yr now - MUSCULOSKELETAL/RHEUMATOLOGICAL Hx Falls: Yes - GASTROINTESTINAL Hx Gastrointestinal Disorders: Yes - GENITOURINARY/GYNECOLOGICAL Hx Genitourinary Disorders: No - PSYCHIATRIC Hx Substance Use: No - SURGICAL HISTORY Hx Surgeries: Yes (nephrecomy, hysterectomy) - ANESTHESIA Hx Anesthesia Reactions: No Hx Malignant Hyperthermia: No Meds Allergies/Adverse Reactions: Allergies Allergy/AdvReac Type Severity Reaction Status Date / Time Penicillins AdvReac DIARRHEA Verified 05/09/17 18:32 - Medications Medications: Current Medications Acetaminophen (Tylenol 325mg Tab) 650 mg PO Q6H PRN PRN Reason: Fever >100.4 F Carbidopa/Levodopa (Sinemet) 1 tab PO QID [facility] Last Admin: 06/25/17 17:36 Dose: 1 tab Famotidine (Pepcid) 20 mg PO HS [facility] Last Admin: 06/24/17 22:57 Dose: Not Given Guaifenesin/Dextromethorphan (Robitussin Dm) 5 ml PO Q6H PRN PRN Reason: Cough Heparin Sodium (Porcine) (Heparin) 5,000 units SC Q12H [facility] PRN Reason: Protocol Last Admin: 06/25/17 08:18 Dose: 5,000 units Home Med (Home Med) 1 unit PO DAILY [facility] Last Admin: 06/25/17 09:29 Dose: 1 unit Home Med (Home Med) 1 unit PO QID [facility] Last Admin: 06/25/17 17:36 Dose: 1 unit Home Med (Home Med) 1 unit PO QID [facility] Last Admin: 06/25/17 17:36 Dose: 1 unit Hydrochlorothiazide (Hydrodiuril) 25 mg PO DAILY [facility] Last Admin: 06/25/17 09:28 Dose: 25 mg Vancomycin HCl (Vancomycin 750 Mg In Ns) 750 mg in 250 mls @ 167 mls/hr IVPB Q12H [facility] PRN Reason: Protocol Last Admin: 06/25/17 08:18 Dose: 167 mls/hr Cefepime HCl (Maxipime 1gm) 1 gm in 100 mls @ 100 mls/hr IVPB Q24H [facility] Last Admin: 06/24/17 20:40 Dose: 100 mls/hr Levofloxacin/Dextrose (Levaquin 500mg) 500 mg in 100 mls @ 100 mls/hr IVPB Q48H [facility] PRN Reason: Protocol Last Admin: 06/24/17 19:32 Dose: 100 mls/hr Levalbuterol HCl (Xopenex) 0.63 mg IH Q6H [facility] Last Admin: 06/25/17 13:24 Dose: 0.63 mg Levothyroxine Sodium (Synthroid) 125 mcg PO 0600 [facility] Last Admin: 06/25/17 05:26 Dose: 125 mcg Metoprolol Succinate (Toprol Xl) 50 mg PO DAILY [facility] Last Admin: 06/25/17 09:28 Dose: 50 mg Multivitamins/Minerals (Therapeutic-M Tab) 1 tab PO 0800 [facility] Last Admin: 06/25/17 08:18 Dose: 1 tab Ondansetron HCl (Zofran Inj) 4 mg IVP Q6H PRN PRN Reason: Nausea/Vomiting Results - Vital Signs Recent Vital Signs: Last Vital Signs Temp 98.4 F 06/25/17 16:00 Pulse 85 06/25/17 16:00 Resp 20 06/25/17 16:00 BP 132/65 06/25/17 16:00 Pulse Ox 96 06/25/17 16:00 - Labs Result Diagrams: 06/25/17 06:10 06/25/17 06:10 Labs: Laboratory Results - last 24 hr 06/25/17 06/25/17 06:10 06:10 WBC 10.0 RBC 4.22 Hgb 10.3 L Hct 33.8 L MCV 80.1 MCH 24.4 L MCHC 30.5 L RDW 19.7 H Plt Count 445 MPV 10.8 Sodium 144 Potassium 4.2 Chloride 109 H Carbon Dioxide 26 Anion Gap 13 BUN 17 Creatinine 1.2 Est GFR ( Amer) 53 Est GFR (Non-Af Amer) 44 Random Glucose 102 Calcium 9.1
--- NOTE | 2017-06-25 18:41 | CP.PCM.PN ---
Subjective - Date & Time of Evaluation Date of Evaluation: 06/25/17 Time of Evaluation: 15:30 - Subjective Subjective: Infectious Disease Follow Up: June 25, 2017 76 yo female who recently had a nephrectomy for renal cell carcinoma on 2017. She was discharged from the hospital 3 days prior to this hospitalization and developed palpitations and SOB. Her PMD sent her to [facility] for further evaluation. More awake and alert today. Further Ativan doses were held. Objective - Vital Signs/Intake and Output Vital Signs (last 24 hours): Temp Pulse Resp BP Pulse Ox 98.4 F 85 20 132/65 96 06/25/17 16:00 06/25/17 16:00 06/25/17 16:00 06/25/17 16:00 06/25/17 16:00 Intake and Output: 06/25/17 06/25/17 06:59 18:59 Intake Total 750 560 Output Total 300 700 Balance 450 -140 - Medications Medications: Current Medications Acetaminophen (Tylenol 325mg Tab) 650 mg PO Q6H PRN PRN Reason: Fever >100.4 F Carbidopa/Levodopa (Sinemet) 1 tab PO QID [facility] Last Admin: 06/25/17 17:36 Dose: 1 tab Famotidine (Pepcid) 20 mg PO HS [facility] Last Admin: 06/24/17 22:57 Dose: Not Given Guaifenesin/Dextromethorphan (Robitussin Dm) 5 ml PO Q6H PRN PRN Reason: Cough Heparin Sodium (Porcine) (Heparin) 5,000 units SC Q12H [facility] PRN Reason: Protocol Last Admin: 06/25/17 08:18 Dose: 5,000 units Home Med (Home Med) 1 unit PO DAILY [facility] Last Admin: 06/25/17 09:29 Dose: 1 unit Home Med (Home Med) 1 unit PO QID [facility] Last Admin: 06/25/17 17:36 Dose: 1 unit Home Med (Home Med) 1 unit PO QID [facility] Last Admin: 06/25/17 17:36 Dose: 1 unit Hydrochlorothiazide (Hydrodiuril) 25 mg PO DAILY [facility] Last Admin: 06/25/17 09:28 Dose: 25 mg Vancomycin HCl (Vancomycin 750 Mg In Ns) 750 mg in 250 mls @ 167 mls/hr IVPB Q12H [facility] PRN Reason: Protocol Last Admin: 06/25/17 08:18 Dose: 167 mls/hr Cefepime HCl (Maxipime 1gm) 1 gm in 100 mls @ 100 mls/hr IVPB Q24H [facility] Last Admin: 06/24/17 20:40 Dose: 100 mls/hr Levofloxacin/Dextrose (Levaquin 500mg) 500 mg in 100 mls @ 100 mls/hr IVPB Q48H [facility] PRN Reason: Protocol Last Admin: 06/24/17 19:32 Dose: 100 mls/hr Levalbuterol HCl (Xopenex) 0.63 mg IH Q6H [facility] Last Admin: 06/25/17 13:24 Dose: 0.63 mg Levothyroxine Sodium (Synthroid) 125 mcg PO 0600 [facility] Last Admin: 06/25/17 05:26 Dose: 125 mcg Metoprolol Succinate (Toprol Xl) 50 mg PO DAILY [facility] Last Admin: 06/25/17 09:28 Dose: 50 mg Multivitamins/Minerals (Therapeutic-M Tab) 1 tab PO 0800 [facility] Last Admin: 06/25/17 08:18 Dose: 1 tab Ondansetron HCl (Zofran Inj) 4 mg IVP Q6H PRN PRN Reason: Nausea/Vomiting - Labs Labs: 06/25/17 06:10 06/25/17 06:10 PT 13.3 SECONDS (9.4-12.5) H 06/23/17 16:50 INR 1.16 (0.93-1.08) H 06/23/17 16:50 APTT 30.5 Seconds (25.1-36.5) 06/23/17 16:50 - Constitutional Appears: No Acute Distress, Chronically Ill - Head Exam Head Exam: ATRAUMATIC, NORMOCEPHALIC - Eye Exam Eye Exam: EOMI, PERRL Pupil Exam: NORMAL ACCOMODATION, PERRL - ENT Exam ENT Exam: Mucous Membranes Moist, Normal External Ear Exam, TM's Normal Bilaterally - Neck Exam Neck Exam: Full ROM, Normal Inspection - Respiratory Exam Respiratory Exam: Decreased Breath Sounds. absent: Rales, Rhonchi, Wheezes Additional comments: basilar crackles - Cardiovascular Exam Cardiovascular Exam: REGULAR RHYTHM, RRR, +S1, +S2 - GI/Abdominal Exam GI & Abdominal Exam: Soft, Normal Bowel Sounds. absent: Distended, Tenderness - Extremities Exam Extremities Exam: Full ROM, Normal Inspection - Neurological Exam Neurological Exam: Alert, Awake, CN II-XII Intact, Oriented x3 - Psychiatric Exam Psychiatric exam: Normal Affect, Normal Mood - Skin Skin Exam: Intact, Normal Color Assessment and Plan - Assessment and Plan (Free Text) Assessment: 76 yo female with recent nephrectomy for Renal Cell Carcinoma brought to [facility] for SOB and palpitations. Low probability VQ scan. Left lower lobe pneumonia noted on VQ scan and chest X-ray. Unable to obtain information from the patient currently as she is delirious after Ativan dosing. Supportive care. Unclear the patient's reaction to PCN as she is not coherent to ask at this time. Patient had a laproscopic nephrectomy performed less than a week ago at a [facility] but I don't know which kidney was resected. Continue with Levaquin renally dosed at this time. So far cultures are negative. On IV Vancomycin. Thank you for allowing me to participate in the care of the patient, we will follow with you.
--- NOTE | 2017-06-25 20:21 | PN ---
DATE: 06/25/2017 SUBJECTIVE: This 76-year-old female was examined at her bedside and this case was reviewed in detail with herself and nurse, Lexi Tinsley, registered nurse. The patient remains hospitalized with newly noted left lower lobe pneumonia. She is status post laparoscopic left kidney removal by Dr. Lopez at [facility] last week. The patient was admitted with shortness of breath in the setting of newly noted left lung pneumonia and is receiving parenteral antibiotics under the direction of Dr. Ceja including renal dose reduced Levaquin, Maxipime and vancomycin. Today, blood and urine culture showed no growth and patient appears less short of breath. PHYSICAL EXAMINATION: GENERAL: She is alert, oriented, denying any fever, chills, chest pain or shortness of breath. Today, there have been no reports of hemoptysis or hematemesis. VITAL SIGNS: Temperature is 98.8, respirations 20, pulse 97 and blood pressure 144/59 with a pulse ox of 96%. She is in normal sinus rhythm on the flat examiner. HEENT: Head: Normocephalic, atraumatic. Eyes: No icterus. Ears: Clear. Throat: Noninjected. NECK: Supple. HEART: Regular S1, S2. LUNGS: Rhonchi at the left base. ABDOMEN: Soft. EXTREMITIES: No edema. SKIN: Without rash. NEUROLOGICAL: Consistent with chronic parkinsonism resting tremors. VASCULAR: Legs warm to touch. PSYCHOLOGICAL: Alert and oriented x3. LABORATORY DATA: White count 10,000, hemoglobin 10.3, hematocrit 33.8, platelets 445,000. PT/INR 1.16, PTT 30.5. Sodium 144, K 4.2, chloride 109, bicarb 26, BUN 17, creatinine 1.2, random blood sugar was 102 and all liver function testing was normal including bilirubin 0.8, AST 27, ALT 12, alk phos 97. Thyroid function was normal with T4 at 8.4 and TSH 1.79. IMPRESSION: A 76-year-old female with radiographic evidence of postoperative left lower lobe pneumonia with comorbidities of deconditioning, chronic parkinsonism, chronic hypertension, history of polycythemia vera, now with anemia of chronic disease, chronic hypothyroidism and degenerative arthritis and anxiety neurosis. PLAN: As discussed with the patient, family, nursing, case management and Dr. Darshan Ceja from Infectious Disease, will include continue cardiac monitoring on the Cardiac Unit with patient ordered to be treated by bedside physical therapy with goal for ambulation safety. She is ordered to have pulse oximetry every shift. Incentive spirometry was reviewed with this patient at bedside. She remains on fall precautions. Heart-healthy soft bland diet, nasal O2 p.r.n. She will continue with Zofran 4 mg IV every 6 hours p.r.n. nausea and vomiting, Xopenex inhalational therapy 0.63 mg every 6, vancomycin 750 mg IV every 12, Toprol XL 50 mg p.o. daily, Tylenol 650 mg p.o. every 6 hours p.r.n. temperature greater than 101 or pain, multivitamin 1 tablet daily, Synthroid 125 mcg p.o. daily, carbidopa-levodopa 25-100 p.o. four times a day, Robitussin DM 5 mL p.o. every 6 hours p.r.n. cough, Pepcid 20 mg p.o. at bedtime, Maxipime 1 g IV every 24, Levaquin 500 mg IV every 48, hydrochlorothiazide 25 mg p.o. daily, and Azilect, Comtan, Rytary, Parkinson medications from home as labeled. She remains on heparin 5000 units subcu every 12 for deep venous thrombosis prophylaxis and greater than 35 minutes was spent in the care management, review of labs, orders, x-rays and outlining of plans for this patient today. All questions were answered. Case was discussed with Social Service since the patient is requesting home services for her with multiple sclerosis who remains at home alone. Jimena Rockwell MD MTDJorge
[2017-06-25] MEDS ORDERED: Albuterol 0.083% Inhal Sol (2.5 mg/3 mL) UD ONE (21:10)
[2017-06-26] MEDS: Levalbuterol 0.63 MG/3 ML Inhal Soln UD IH SCH ×3 (01:08→13:35)
[2017-06-26] MEDS ORDERED: Vancomycin 750mg 750 MG/250 ML BAG IVPB SCH (06:00)
[2017-06-26] MEDS: Levothyroxine 125 MCG TAB PO SCH (06:01)
[2017-06-26 06:19] VITALS: TEMP 98.1
[2017-06-26] MEDS: Multivitamin With Minerals Tab PO SCH (08:24)
[2017-06-26] MEDS: COMTAN PO SCH ×2 (10:31→14:27)
[2017-06-26] MEDS: Metoprolol Succinate 50 mg XL Tab PO SCH (10:31)
[2017-06-26 11:35] VITALS: PULSE 90; RESP 18
[2017-06-26 13:42] VITALS: BP 159/82; O2SAT 97
--- NOTE | 2017-06-26 16:25 | CP.PCM.PN ---
Subjective - Date & Time of Evaluation Date of Evaluation: 06/26/17 Time of Evaluation: 14:00 - Subjective Subjective: Infectious Disease Follow Up: June 26, 2017 76 yo female who recently had a nephrectomy for renal cell carcinoma on 2017. She was discharged from the hospital 3 days prior to this hospitalization and developed palpitations and SOB. [place] PM[place] [facility] [place]. More awake and alert today. Further Ativan doses were held. Urine cultures with no growth. Blood cultures negative to date. Objective - Vital Signs/Intake and Output Vital Signs (last 24 hours): Temp Pulse Resp BP Pulse Ox 98.1 F 90 18 159/82 H 97 06/26/17 12:00 06/26/17 12:00 06/26/17 12:00 06/26/17 12:00 06/26/17 12:00 Intake and Output: 06/26/17 06/26/17 06:59 18:59 Intake Total 920 600 Output Total 200 600 Balance 720 0 - Labs Labs: 06/25/17 06:10 06/25/17 06:10 PT 13.3 SECONDS (9.4-12.5) H 06/23/17 16:50 INR 1.16 (0.93-1.08) H 06/23/17 16:50 APTT 30.5 Seconds (25.1-36.5) 06/23/17 16:50 - Constitutional Appears: Non-toxic, No Acute Distress, Chronically Ill - Head Exam Head Exam: ATRAUMATIC, NORMOCEPHALIC - Eye Exam Eye Exam: EOMI, PERRL Pupil Exam: NORMAL ACCOMODATION, PERRL - ENT Exam ENT Exam: Mucous Membranes Moist, Normal External Ear Exam, TM's Normal Bilaterally - Neck Exam Neck Exam: Full ROM, Normal Inspection - Respiratory Exam Respiratory Exam: Decreased Breath Sounds. absent: Rales, Rhonchi, Wheezes Additional comments: basilar crackles. - Cardiovascular Exam Cardiovascular Exam: REGULAR RHYTHM, RRR, +S1, +S2 - GI/Abdominal Exam GI & Abdominal Exam: Soft, Normal Bowel Sounds. absent: Distended, Tenderness - Extremities Exam Extremities Exam: Full ROM, Normal Inspection - Back Exam Back Exam: absent: vertebral tenderness - Neurological Exam Neurological Exam: Alert, Awake, CN II-XII Intact, Oriented x3 - Psychiatric Exam Psychiatric exam: Normal Affect, Normal Mood - Skin Skin Exam: Intact, Normal Color Assessment and Plan - Assessment and Plan (Free Text) Assessment: 76 yo female with recent nephrectomy for Renal Cell Carcinoma [place] [facility] [place] and palpitations. Low probability VQ scan. Left lower lobe pneumonia noted on VQ scan and chest X-ray. Unable to obtain information from the patient currently as she is delirious after Ativan dosing. Supportive care. Patient had a laproscopic nephrectomy performed less than a week ago at [facility] but I don't know which kidney was resected. Continue with Levaquin renally dosed at this time. So far cultures are negative. On IV Vancomycin. Patient feeling better so far. Thank you for allowing me to participate in the care of the patient, we will follow with you.
--- NOTE | 2017-06-27 10:31 | DS ---
DATE; 06/26/2017. Discharged from room 371, bed 1. DISPOSITION: Transitional care rehab. FINAL DIAGNOSES: Left lower lung pneumonia, chronic parkinsonism, degenerative arthritis, anxiety neurosis, chronic hypothyroidism, chronic hypertension, degenerative arthritis and status post recent left nephrectomy laparoscopically for renal cell carcinoma. DISCHARGE MEDICATIONS: Zofran 4 mg IV q. 6 hours p.r.n. nausea and vomiting, Xopenex 0.63 mg inhalational every 6 hours, vancomycin 750 mg IV every 12, Tylenol 650 mg p.o. every 6 hours p.r.n. pain or temperature greater than 101, Toprol XL 50 mg p.o. daily, multivitamin 1 tablet daily, Synthroid 125 mcg p.o. daily, Sinemet 25 - 100 one tablet p.o. four times a day, Robitussin DM 5 mL p.o. every 6 hours p.r.n. cough, Pepcid 20 mg p.o. at bedtime, Levaquin 500 mg IV every 48, hydrochlorothiazide 25 mg p.o. daily, Azilect 1 mg p.o. daily, Rytary 1 unit p.o. four times a day, Comtan 200 mg p.o. four times a day. SUMMARY: This 76-year-old female was admitted to the [facility] after presenting to [facility] ER with cough, congestion and being noted to have a new left lower lung pneumonia after being discharged from [facility] where she underwent a laparoscopic left nephrectomy last week for renal cell carcinoma. This was accomplished by Dr. Lopez from Urology. At the time of her discharge, patient's temperature was 98.1, respirations 18, pulse 89 and blood pressure 124/74 with pulse ox 97%. Discharge labs show white count 10,000, hemoglobin 10.3, hematocrit 33.8, platelets 445,000. Sodium 144, K 4.2, chloride 109, bicarb 26, BUN 17, creatinine 1.2, random blood sugar 102. All liver function testing was normal including bilirubin 0.80, AST 27, ALT 12, alk phos 97. Microbiology report show urine with no growth and blood cultures with no growth at 3 days. V/Q scan was negative for pulmonary embolism. Both lower extremities were negative for DVT by venous Doppler ultrasound. An admission chest x-ray showed a new acute left lower lobe infiltrate consistent with pneumonia. PLAN: The plan will be to transfer this patient to medical rehab where she will continue with antibiotic therapy as well as pulmonary toiletry, physical therapy for reconditioning and gait training and ultimate plan will be for discharge to home and outpatient monitoring of her oncological issues with Dr. Duke Epperson from Urology and Dr. Mcdermott from Oncology. Greater than 35 minutes was spent in the care management, review of labs, x-rays, orders with the patient and nursing. All questions were answered. Jimena Rockwell MD MTDD
== END 2017-06-26 14:48 | DRG 194 ==
LOC: ED 16:31 → ERH 18:30 → OBSVTOIN 19:26 → ERH 21:55 → 3RSO 23:25
PROVIDERS: ADMIT Internal Medicine; ATTEND Internal Medicine
DX: J18.9 Pneumonia, unspecified organism (principal); C64.9 Malignant neoplasm of unspecified kidney, except renal pelvis; G20 Parkinson's disease; D45 Polycythemia vera; D63.8 Anemia in other chronic diseases classified elsewhere; E03.9 Hypothyroidism, unspecified; E78.00 Pure hypercholesterolemia, unspecified; F41.1 Generalized anxiety disorder; I10 Essential (primary) hypertension; T36.0X5A Adverse effect of penicillins, initial encounter; Z85.528 Personal history of other malignant neoplasm of kidney; Z87.891 Personal history of nicotine dependence; Z90.710 Acquired absence of both cervix and uterus; Z88.0 Allergy status to penicillin; R40.2412 Glasgow coma scale score 13-15, at arrival to emergency department

== ENCOUNTER 2017-06-26 14:48 | Inpatient (IN) | payer OTHER, MEDICARE ==
[2017-06-26] MEDS ORDERED: guaiFENesin DM 100 mg-10 mg/5 ml UD PO PRN (15:50)
[2017-06-26 16:42] VITALS: BMI 26.7
[2017-06-26] MEDS: COMTAN PO SCH ×3 (17:45→22:03)
[2017-06-26] MEDS: RYTARY PO SCH ×2 (17:45→21:49)
[2017-06-26] MEDS: levoFLOXacin 500 mg in D5W 500 MG/100 ML BAG IVPB SCH (18:08)
[2017-06-26] MEDS: Vancomycin 750mg 750 MG/250 ML BAG IVPB SCH (18:10)
[2017-06-26] MEDS: Levalbuterol 0.63 MG/3 ML Inhal Soln UD IH SCH (21:04)
[2017-06-27] MEDS: Levalbuterol 0.63 MG/3 ML Inhal Soln UD IH SCH ×4 (02:00→21:41)
[2017-06-27] MEDS: Vancomycin 750mg 750 MG/250 ML BAG IVPB SCH ×2 (06:04→18:20)
[2017-06-27] MEDS: Levothyroxine 125 MCG TAB PO SCH (06:04)
[2017-06-27 07:02] LABS: BASO # 0.03 K/mm3 (0.0-2.0); BASO % 0.3 % (0.0-3.0); EOS # 0.2 (0.0-0.7); EOS % 1.5 % (1.5-5.0); GRAN % 89.9 % (50.0-68.0); HEMOGLOBIN 9.3 g/dL (12.0-16.0); LYMPH # 0.5 (1.2-3.4); LYMPH % 4.6 % (22.0-35.0); MEAN CELL VOLUME 79.3 fl (80.0-105.0); MEAN CORPUSCULAR HEMOGLOBIN 24.4 pg (25.0-35.0); MEAN CORPUSCULAR HGB CONC 30.8 g/dl (31.0-37.0); MEAN PLATELET VOLUME 10.6 fl (7.0-11.0); MONO # 0.4 (0.1-0.6); MONO % 3.7 % (1.0-6.0); PLATELET COUNT 362 10^3/uL (120.0-450.0); RBC 3.81 10^6/uL (3.5-6.1); RED CELL DISTRIBUTION WIDTH 19.6 % (11.5-14.5); WHITE BLOOD COUNT 9.9 10^3/ul (4.5-11.0)
[2017-06-27 08:09] LABS: EOSINOPHIL 1 % (0.0-3.0); LYMPHOCYTE 5 % (22.0-35.0); MONOCYTE 2 % (1.0-6.0); NEUTROPHIL 92 % (50.0-70.0); POIKILOCYTOSIS 1+
[2017-06-27 08:10] LABS: ANISOCYTOSIS SLIGHT; HYPOCHROMIA SLIGHT; LARGE PLATELETS PRESENT; MICROCYTOSIS 1+; OVALOCYTES 1+; PLATELET ESTIMATE NORMAL (NORMAL); TEAR DROP CELLS SLIGHT
[2017-06-27] MEDS ORDERED: Potassium Chloride 20 mEq ER Tab PO ONE (10:28)
[2017-06-27] MEDS: COMTAN PO SCH ×5 (11:49→22:20)
[2017-06-27] MEDS: AZILECT 1 MG PO SCH (11:49)
[2017-06-27] MEDS: RYTARY PO SCH ×5 (11:49→22:19)
[2017-06-27] MEDS: Metoprolol Succinate 50 mg XL Tab PO SCH (11:52)
[2017-06-27] MEDS: Multivitamin With Minerals Tab PO SCH (11:52)
--- NOTE | 2017-06-28 00:39 | PN ---
DATE: 06/27/2017 SUBJECTIVE: This 76-year-old female was examined at the bedside and this case was reviewed in detail with herself and her nurse, Kimmie Balbuena. The patient remains weak and deconditioned with high anxiety and multiple comorbidities including left lower lung pneumonia postoperatively status post a laparoscopic left nephrectomy at [facility] last week. The patient is also being treated for chronic parkinsonism, degenerative arthritis, chronic hypertension, hypothyroidism, and today denied any fever or chills. Because of her comorbidities, she remains a high-risk fall protocol patient and is encouraged to ask for assistance with out of bed to chair and use of commode. PHYSICAL EXAMINATION: VITAL SIGNS: Today, her temperature was 98.5, respirations 18, pulse 82, and blood pressure 125/71 with a pulse ox of 97%. HEENT: Head: Normocephalic, atraumatic. Eyes: No icterus. Ears: Clear. Throat: Noninjected. NECK: Supple. HEART: S1, S2. Soft systolic ejection murmur at left sternal border. LUNGS: Decreased breath sounds at the left base with rhonchi that clear with coughing. ABDOMEN: Soft. Well-healed laparoscopic incisional scars. No rebound, no guarding. EXTREMITIES: No edema. SKIN: Without rash. NEUROLOGICAL: Parkinsonism. VASCULAR: Legs warm to touch. LABORATORY DATA: White count 9900, hemoglobin 9.3, hematocrit 30.2, platelets 362,000. Chemistry: Sodium 145, K 3.5, chloride 103, bicarb 36, BUN 21, creatinine 1.2, random blood sugar 113. Calcium normal 9.0. IMPRESSION: A 76-year-old female with postsurgical left lower lung pneumonia, comorbidities of parkinsonism, history of polycythemia vera, now with [id number] anemia of chronic disease, chronic hypertension, isolated hypokalemia, peptic ulcer disease with gastroesophageal reflux disease, degenerative arthritis, hypothyroidism, and history of moderate aortic stenosis, stable. PLAN: As discussed with the patient and nursing will be to continue physical and occupational therapy for reconditioning and gait training while maintaining the patient on high-risk fall protocol and heart-healthy soft bland diet. She is wearing nasal O2 p.r.n. She is ordered to receive Zofran 4 mg IV every 6 hours p.r.n. nausea or vomiting, Xopenex 0.63 mg inhalational every 6, vancomycin 750 mg IV every 12, Tylenol 650 mg p.o. every 6 hours p.r.n. fever or pain, Toprol-XL 50 mg p.o. daily, multivitamin one tablet daily, Synthroid 125 mcg p.o. daily, Sinemet 25/100 p.o. q.i.d., Robitussin DM 5 mL p.o. every 6 hours p.r.n. cough, Pepcid 20 mg p.o. at bedtime, Levaquin 500 mg IV every 48, potassium K-Dur 20 mEq p.o. one dose, HydroDIURIL 25 mg p.o. daily with home medication including Comtan, Rytary, and Azilect as labeled. Patient will be scheduled for a repeat potassium level in the a.m. and will have serial labs and chest x-rays as needed. Greater than 35 minutes was spent in the care, management, review of labs, orders, x-rays, and discussion of this patient's care with herself, nursing, and physical therapy. All questions were answered. Jimena Rockwell MD MTDJorge
[2017-06-28] MEDS: Levalbuterol 0.63 MG/3 ML Inhal Soln UD IH SCH ×4 (02:46→19:31)
[2017-06-28] MEDS: Levothyroxine 125 MCG TAB PO SCH (05:12)
[2017-06-28] MEDS: Vancomycin 750mg 750 MG/250 ML BAG IVPB SCH (05:13)
[2017-06-28] MEDS: Multivitamin With Minerals Tab PO SCH (11:23)
[2017-06-28] MEDS: Metoprolol Succinate 50 mg XL Tab PO SCH (11:24)
[2017-06-28] MEDS: AZILECT 1 MG PO SCH (11:28)
[2017-06-28] MEDS: RYTARY PO SCH ×4 (11:28→21:53)
[2017-06-28] MEDS: COMTAN PO SCH ×4 (11:28→21:54)
--- NOTE | 2017-06-28 14:22 | CP.PCM.CON ---
History of Present Illness - History of Present Illness History of Present Illness: Infectious Disease Consult/Follow Up: June 28, 2017 76 yo female who recently had a left nephrectomy for renal cell carcinoma on . She was discharged from the hospital 3 days prior to this hospitalization and developed palpitations and SOB. Her PMD sent her [place] [facility] [place]. More awake and alert today. Further Ativan doses were held. Urine cultures with no growth. Blood cultures negative to date. Patient states that she feels better. Scars from laproscopic cholecystectomy appear well healed. Not Anxious when seen. PMHx: Renal cell carcinoma, Parkinson's Disease, HTN, Anxiety, Polycytemia Vera, Hypothyroidism PSHx: Laproscopic Nephrectomy (Left Kidney) Allergies: PCN Social Hx: Former tobacco use stopped 50 years ago Occassional EtOH No illicit drug use Active Medications Acetaminophen (Tylenol 325mg Tab) 650 mg PO Q6H PRN; Protocol PRN Reason: Fever >100.4 F Last Admin: 06/27/17 22:23 Dose: 650 mg Carbidopa/Levodopa (Sinemet) 1 tab PO QID [facility] PRN Reason: Protocol Last Admin: 06/28/17 11:23 Dose: 1 tab Famotidine (Pepcid) 20 mg PO HS [facility] PRN Reason: Protocol Last Admin: 06/27/17 22:20 Dose: 20 mg Guaifenesin/Dextromethorphan (Robitussin Dm) 5 ml PO Q6H PRN; Protocol PRN Reason: Cough Home Med (Home Med) 1 unit PO QID [facility] Last Admin: 06/28/17 11:28 Dose: 1 unit Home Med (Home Med) 1 unit PO 0800 [facility] PRN Reason: Protocol Last Admin: 06/28/17 11:28 Dose: 1 unit Home Med (Home Med) 1 unit PO QID [facility] Last Admin: 06/28/17 11:28 Dose: 1 unit Hydrochlorothiazide (Hydrodiuril) 25 mg PO DAILY [facility] PRN Reason: Protocol Last Admin: 06/28/17 11:23 Dose: 25 mg Levofloxacin/Dextrose (Levaquin 500mg) 500 mg in 100 mls @ 100 mls/hr IVPB Q48H [facility] PRN Reason: Protocol Last Admin: 06/26/17 18:08 Dose: 100 mls/hr Vancomycin HCl (Vancomycin 750 Mg In Ns) 750 mg in 250 mls @ 167 mls/hr IVPB 0600,1800 [facility] PRN Reason: Protocol Last Admin: 06/28/17 05:13 Dose: 167 mls/hr Levalbuterol HCl (Xopenex) 0.63 mg IH [id number] [facility] PRN Reason: Protocol Last Admin: 06/28/17 13:32 Dose: 0.63 mg Levothyroxine Sodium (Synthroid) 125 mcg PO 0600 [facility] PRN Reason: Protocol Last Admin: 06/28/17 05:12 Dose: 125 mcg Metoprolol Succinate (Toprol Xl) 50 mg PO BRK [facility] PRN Reason: Protocol Last Admin: 06/28/17 11:24 Dose: 50 mg Multivitamins/Minerals (Therapeutic-M Tab) 1 tab PO 0800 [facility] PRN Reason: Protocol Last Admin: 06/28/17 11:23 Dose: 1 tab Ondansetron HCl (Zofran Inj) 4 mg IVP Q6H PRN; Protocol PRN Reason: Nausea/Vomiting Family Hx: Denies ROS: SOB and palpitations. Anxiety and low back pains. NO abdominal pain, melena, hematuria, hematemesis, hematochezia, depression, headaches, dizziness, diarrhea, vomiting, vision loss, hearing loss, loss of consciousness. Past Patient History - Infectious Disease Hx of Infectious Diseases: None - Tetanus Immunizations Tetanus Immunization: Unknown - Past Social History Smoking Status: Former Smoker - CARDIAC Hx Hypercholesterolemia: Yes Hx Hypertension: Yes - PULMONARY Hx Respiratory Disorders: No (denies) - NEUROLOGICAL Hx Neurological Disorder: Yes Hx Parkinson's Disease: Yes - RENAL Other/Comment: renal disease - ENDOCRINE/METABOLIC Hx Hypothyroidism: Yes - HEMATOLOGICAL/ONCOLOGICAL Hx Blood Disorders: Yes (polycytemia vera) - INTEGUMENTARY Hx Dermatological Problems: Yes (rosacea) Other/Comment: 2 right foot with cellulitis.redness,pain,edema +1. 2-2-18 tip of nose with swelling,redness for a yr now - MUSCULOSKELETAL/RHEUMATOLOGICAL Hx Falls: Yes - GASTROINTESTINAL Hx Gastrointestinal Disorders: Yes - GENITOURINARY/GYNECOLOGICAL Hx Reproductive Disorders: No - PSYCHIATRIC Hx Substance Use: No - SURGICAL HISTORY Hx Surgeries: Yes (nephrecomy, hysterectomy) - ANESTHESIA Hx Anesthesia Reactions: No Hx Malignant Hyperthermia: No Meds Allergies/Adverse Reactions: Allergies Allergy/AdvReac Type Severity Reaction Status Date / Time Penicillins AdvReac DIARRHEA Verified 05/09/17 18:32 - Medications Medications: Current Medications Acetaminophen (Tylenol 325mg Tab) 650 mg PO Q6H PRN; Protocol PRN Reason: Fever >100.4 F Last Admin: 06/27/17 22:23 Dose: 650 mg Carbidopa/Levodopa (Sinemet) 1 tab PO QID [facility] PRN Reason: Protocol Last Admin: 06/28/17 11:23 Dose: 1 tab Famotidine (Pepcid) 20 mg PO HS [facility] PRN Reason: Protocol Last Admin: 06/27/17 22:20 Dose: 20 mg Guaifenesin/Dextromethorphan (Robitussin Dm) 5 ml PO Q6H PRN; Protocol PRN Reason: Cough Home Med (Home Med) 1 unit PO QID [facility] Last Admin: 06/28/17 11:28 Dose: 1 unit Home Med (Home Med) 1 unit PO 0800 [facility] PRN Reason: Protocol Last Admin: 06/28/17 11:28 Dose: 1 unit Home Med (Home Med) 1 unit PO QID [facility] Last Admin: 06/28/17 11:28 Dose: 1 unit Hydrochlorothiazide (Hydrodiuril) 25 mg PO DAILY [facility] PRN Reason: Protocol Last Admin: 06/28/17 11:23 Dose: 25 mg Levofloxacin/Dextrose (Levaquin 500mg) 500 mg in 100 mls @ 100 mls/hr IVPB Q48H [facility] PRN Reason: Protocol Last Admin: 06/26/17 18:08 Dose: 100 mls/hr Vancomycin HCl (Vancomycin 750 Mg In Ns) 750 mg in 250 mls @ 167 mls/hr IVPB 0600,1800 [facility] PRN Reason: Protocol Last Admin: 06/28/17 05:13 Dose: 167 mls/hr Levalbuterol HCl (Xopenex) 0.63 mg IH [id number] [facility] PRN Reason: Protocol Last Admin: 06/28/17 13:32 Dose: 0.63 mg Levothyroxine Sodium (Synthroid) 125 mcg PO 0600 [facility] PRN Reason: Protocol Last Admin: 06/28/17 05:12 Dose: 125 mcg Metoprolol Succinate (Toprol Xl) 50 mg PO BRK [facility] PRN Reason: Protocol Last Admin: 06/28/17 11:24 Dose: 50 mg Multivitamins/Minerals (Therapeutic-M Tab) 1 tab PO 0800 [facility] PRN Reason: Protocol Last Admin: 06/28/17 11:23 Dose: 1 tab Ondansetron HCl (Zofran Inj) 4 mg IVP Q6H PRN; Protocol PRN Reason: Nausea/Vomiting Physical Exam - Constitutional Appears: Non-toxic, No Acute Distress, Chronically Ill - Head Exam Head Exam: ATRAUMATIC, NORMOCEPHALIC - Eye Exam Eye Exam: EOMI, PERRL Pupil Exam: NORMAL ACCOMODATION, PERRL - ENT Exam ENT Exam: Mucous Membranes Moist, Normal External Ear Exam, TM's Normal Bilaterally - Neck Exam Neck exam: Positive for: Full Rom, Normal Inspection - Respiratory Exam Respiratory Exam: Decreased Breath Sounds, NORMAL BREATHING PATTERN. absent: Rales, Rhonchi, Wheezes - Cardiovascular Exam Cardiovascular Exam: REGULAR RHYTHM, RRR, +S1, +S2 - GI/Abdominal Exam GI & Abdominal Exam: Normal Bowel Sounds, Soft. absent: Distended, Tenderness - Extremities Exam Extremities exam: Positive for: full ROM, normal inspection - Neurological Exam Neurological exam: Alert, CN II-XII Intact, Oriented x3 - Psychiatric Exam Psychiatric exam: Normal Affect, Normal Mood - Skin Skin Exam: Intact, Normal Color Results - Vital Signs Recent Vital Signs: Last Vital Signs Temp 97.9 F 06/28/17 10:00 Pulse 81 06/28/17 11:24 Resp 20 06/28/17 10:00 BP 129/63 06/28/17 11:24 Pulse Ox 97 06/28/17 10:00 - Labs Result Diagrams: 06/27/17 06:30 06/28/17 06:45 Labs: Laboratory Results - last 24 hr 06/28/17 06:45 Potassium 3.9 Assessment & Plan - Assessment and Plan (Free Text) Assessment: 76 yo female with recent nephrectomy for Renal Cell Carcinoma brought [place] [facility] [place] and palpitations. Low probability VQ scan. Left lower lobe pneumonia noted on VQ scan. She makes no complaints at this time. She states she is comfortable. Unclear the patient's reaction to PCN as she is not coherent to ask at this time. Patient had a laproscopic nephrectomy performed less than a week ago at [facility] of the left kidney. Will continue Levaquin renally dosed at this time. Noted patient on Vancomycin... would stop Vancomycin at this time. Thank you for allowing me to participate in the care of the patient, we will follow with you.
[2017-06-28] MEDS: levoFLOXacin 500 mg in D5W 500 MG/100 ML BAG IVPB SCH (17:15)
--- NOTE | 2017-06-28 21:10 | PN ---
DATE: 06/28/2017 SUBJECTIVE: This 76-year-old female was examined at the bedside. This case was reviewed in detail with her nurse, Inga. The patient was out of bed to chair, cooperating with physical and occupational therapy. She denied fever, chills, chest pain, or shortness of breath. PHYSICAL EXAMINATION: VITAL SIGNS: Temperature was 97.9, respirations 20, pulse 87, and blood pressure 147/66. Pulse ox 97% room air. HEENT: Head: Normocephalic, atraumatic. Eyes: No icterus. Ears: Clear. Throat: Noninjected. NECK: Supple. HEART: Regular S1, S2. LUNGS: Rhonchi at the left base posteriorly. ABDOMEN: Soft. Well-healed laparoscopic scars from recent left nephrectomy. EXTREMITIES: No edema. SKIN: Without rash. NEUROLOGICAL: Marked deconditioning and chronic parkinsonism. VASCULAR: Legs are warm to touch. PSYCHOLOGICAL: Chronic anxiety. LABORATORY DATA: White count 9900, hemoglobin 9.3, hematocrit 30.2, platelets 362,000. Sodium 141, K 3.9, chloride 103, bicarb 30, BUN 21, creatinine 1.2, random blood sugar 113. IMPRESSION: This is a 76-year-old female with postoperative left lower lung pneumonia, status post laparoscopic left nephrectomy for renal cell carcinoma with comorbidities of chronic parkinsonism, history of polycythemia vera, now with anemia of chronic disease and anemia of acute illness, hypothyroidism, peptic ulcer disease with gastroesophageal reflux disease, degenerative arthritis, and history of chronic hypertension, and deconditioning. PLAN: As discussed with the patient and nursing will be to continue physical and occupational therapy while maintaining patient out of bed to chair with assistance and high-risk fall protocol. She continues on a heart-healthy soft bland diet, nasal O2 p.r.n. She was encouraged to do incentive spirometry every 1 hour and will continue on Zofran 4 mg IV every 6 hours p.r.n. nausea or vomiting, Xopenex 0.63 mg inhalational every 6, Toprol-XL 50 mg p.o. daily, multivitamin one tablet daily, Synthroid 125 mcg p.o. daily, Sinemet 25/100 p.o. q.i.d., Robitussin DM 5 mL p.o. every 6 hours p.r.n. cough, Pepcid 20 mg p.o. at bedtime, Levaquin 500 mg IV every 48 hours, hydrochlorothiazide 25 mg p.o. daily, potassium chloride 20 mEq p.o. daily, and Parkinson medicines from home as outlined including Comtan, Azilect, and Rytary. Patient will have serial labs and serial chest x-rays while on the medical unit. Greater than 35 minutes was spent in the care management, review of labs, orders, medication with the patient and nursing today. All questions were answered. Jimena Rockwell MD MTDD
[2017-06-29] MEDS: Levalbuterol 0.63 MG/3 ML Inhal Soln UD IH SCH ×4 (01:10→19:36)
[2017-06-29] MEDS: Levothyroxine 125 MCG TAB PO SCH (06:10)
[2017-06-29] MEDS: Multivitamin With Minerals Tab PO SCH (07:51)
[2017-06-29] MEDS: Metoprolol Succinate 50 mg XL Tab PO SCH (07:51)
[2017-06-29] MEDS: Potassium Chloride 20 mEq ER Tab PO SCH (07:52)
[2017-06-29] MEDS: AZILECT 1 MG PO SCH (08:12)
[2017-06-29] MEDS: RYTARY PO SCH ×5 (09:25→21:36)
[2017-06-29] MEDS: COMTAN PO SCH ×4 (09:25→21:36)
--- NOTE | 2017-06-29 14:36 | CP.PCM.PN ---
Subjective - Date & Time of Evaluation Date of Evaluation: 06/29/17 Time of Evaluation: 13:00 - Subjective Subjective: Infectious Disease Consult/Follow Up: June 29, 2017 76 yo female who recently had a left nephrectomy for renal cell carcinoma on . She was discharged from the hospital 3 days prior to this hospitalization and developed palpitations and SOB. [place] [facility] [place] More awake and alert today. Further Ativan doses were held. Urine cultures with no growth. Blood cultures negative to date. Patient states that she feels better. Scars from laproscopic cholecystectomy appear well healed. Not Anxious when seen. Vancomycin random level at 21.5. Monitor. Maintaining Levaquin IV. Objective - Vital Signs/Intake and Output Vital Signs (last 24 hours): Temp Pulse Resp BP Pulse Ox 97.3 F L 82 20 140/73 95 06/29/17 10:00 06/29/17 10:00 06/29/17 10:00 06/29/17 10:00 06/29/17 10:00 Intake and Output: 06/29/17 06/29/17 06:59 18:59 Intake Total 240 Balance 240 - Medications Medications: Current Medications Acetaminophen (Tylenol 325mg Tab) 650 mg PO Q6H PRN; Protocol PRN Reason: Fever >100.4 F Last Admin: 06/28/17 17:18 Dose: 650 mg Carbidopa/Levodopa (Sinemet) 1 tab PO QID [facility] PRN Reason: Protocol Last Admin: 06/29/17 14:14 Dose: 1 tab Famotidine (Pepcid) 20 mg PO HS [facility] PRN Reason: Protocol Last Admin: 06/28/17 21:54 Dose: 20 mg Guaifenesin/Dextromethorphan (Robitussin Dm) 5 ml PO Q6H PRN; Protocol PRN Reason: Cough Home Med (Home Med) 1 unit PO QID [facility] Last Admin: 06/29/17 14:13 Dose: 1 unit Home Med (Home Med) 1 unit PO 0800 [facility] PRN Reason: Protocol Last Admin: 06/29/17 08:12 Dose: Not Given Home Med (Home Med) 1 unit PO QID [facility] Last Admin: 06/29/17 14:14 Dose: 1 unit Hydrochlorothiazide (Hydrodiuril) 25 mg PO DAILY [facility] PRN Reason: Protocol Last Admin: 06/29/17 10:04 Dose: 25 mg Levofloxacin/Dextrose (Levaquin 250mg) 250 mg in 50 mls @ 50 mls/hr IVPB DAILY [facility] PRN Reason: Protocol Levalbuterol HCl (Xopenex) 0.63 mg IH [id number] [facility] PRN Reason: Protocol Last Admin: 06/29/17 13:20 Dose: 0.63 mg Levothyroxine Sodium (Synthroid) 125 mcg PO 0600 [facility] PRN Reason: Protocol Last Admin: 06/29/17 06:10 Dose: 125 mcg Metoprolol Succinate (Toprol Xl) 50 mg PO BRK [facility] PRN Reason: Protocol Last Admin: 06/29/17 07:51 Dose: 50 mg Multivitamins/Minerals (Therapeutic-M Tab) 1 tab PO 0800 [facility] PRN Reason: Protocol Last Admin: 06/29/17 07:51 Dose: 1 tab Ondansetron HCl (Zofran Inj) 4 mg IVP Q6H PRN; Protocol PRN Reason: Nausea/Vomiting Potassium Chloride (K-Dur 20 Meq Er Tab) 20 meq PO 0800 [facility] Last Admin: 06/29/17 07:52 Dose: 20 meq - Labs Labs: 06/27/17 06:30 06/28/17 06:45 - Constitutional Appears: Non-toxic, No Acute Distress, Chronically Ill - Head Exam Head Exam: ATRAUMATIC, NORMOCEPHALIC - Eye Exam Eye Exam: EOMI, PERRL Pupil Exam: NORMAL ACCOMODATION, PERRL - ENT Exam ENT Exam: Mucous Membranes Moist, Normal External Ear Exam, TM's Normal Bilaterally - Neck Exam Neck Exam: Full ROM, Normal Inspection - Respiratory Exam Respiratory Exam: Clear to Ausculation Bilateral, NORMAL BREATHING PATTERN. absent: Rales, Rhonchi, Wheezes - Cardiovascular Exam Cardiovascular Exam: REGULAR RHYTHM, RRR, +S1, +S2 - GI/Abdominal Exam GI & Abdominal Exam: Soft, Normal Bowel Sounds. absent: Distended, Tenderness - Extremities Exam Extremities Exam: Full ROM, Normal Inspection - Neurological Exam Neurological Exam: Alert, Awake, CN II-XII Intact, Oriented x3 - Psychiatric Exam Psychiatric exam: Normal Affect, Normal Mood - Skin Skin Exam: Intact, Normal Color Assessment and Plan - Assessment and Plan (Free Text) Assessment: 76 yo female with recent nephrectomy for Renal Cell Carcinoma [place] [facility] and [place]. Low probability VQ scan. Left lower lobe pneumonia noted on VQ scan. She makes no complaints at this time. She states she is comfortable. Unclear the patient's reaction to PCN as she is not coherent to ask at this time. Patient had a laproscopic nephrectomy performed less than a week ago at [facility] of the left kidney. Will continue Levaquin renally dosed at this time. Monitor Vancomycin level on patient. Random level today 21.5 with last Vancomycin dose yesterday morning.. Thank you for allowing me to participate in the care of the patient, we will follow with you.
--- NOTE | 2017-06-29 20:38 | PN ---
DATE: 06/29/2017 SUBJECTIVE: This 76-year-old female was examined at her bedside and this case was reviewed in detail with herself and nurse, Jovi Hardin, registered nurse. The patient is out of bed to chair. She is breathing more easily. She is status post a recent left laparoscopic nephrectomy for renal cell carcinoma that was complicated postoperatively by newly noted left lower lung pneumonia. At present, she denies fever, chills, chest pain, or shortness of breath. PHYSICAL EXAMINATION: VITAL SIGNS: Temperature is 97.3, respirations 20, pulse 82, and blood pressure 140/73 with a pulse ox of 95%. HEENT: Head normocephalic, atraumatic. Eyes, no icterus. Ears, clear. Throat, noninjected. NECK: Supple. HEART: Regular S1, S2. LUNGS: With rhonchi at the left posterior base of her lung. ABDOMEN: Soft. EXTREMITIES: No edema. SKIN: Without rash. NEUROLOGICAL: Unchanged. PSYCHOLOGICAL: Chronic anxiety. VASCULAR: Legs warm to touch. LABORATORY DATA: White count 9900, hemoglobin 9.3, hematocrit 30.2, platelets 362,000. Sodium 141, K 3.9, chloride 103, bicarb 30, BUN 21, creatinine 1.2, random blood sugar 113. IMPRESSION: A 76-year-old female status post recent left laparoscopic nephrectomy for renal cell carcinoma, now admitted with left lower lung pneumonia with comorbidities of chronic Parkinson disease, chronic hypertension, peptic ulcer disease with gastroesophageal reflux disease, anemia of chronic disease, history of polycythemia vera, history of hypothyroidism, degenerative arthritis, and chronic anxiety neurosis. PLAN: As discussed with the patient and nurse, Jovi Hardin, will to be maintain this patient on high-risk fall protocol while continuing physical and occupational therapy daily for reconditioning and gait training. She continues with nasal O2 p.r.n., Zofran 4 mg IV every 6 hours p.r.n. nausea or vomiting, Xopenex 0.63 mg inhalational therapy every 6 hours, Toprol-XL 50 mg p.o. daily, multivitamin 1 tablet daily, Synthroid 125 mcg p.o. daily, Sinemet 25 per 100 one tablet p.o. four times a day, Robitussin DM 5 mL p.o. every 6 hours p.r.n. cough, Pepcid 20 mg p.o. at bedtime, Levaquin 250 mg IV daily, K-Dur 20 mEq p.o. daily, hydrochlorothiazide 25 mg p.o. daily, and Azilect, Comtan, and Rytary medications for her Parkinson disease from home as labeled. Ultimate plan will be to monitor the patient's clinical progress and perform repeat chest x-ray in the near future with plans for discharge to home when stable. The patient will need outpatient oncological followup with her specialist, Dr. Mcdermott, regarding renal cell carcinoma and history of polycythemia vera with chronic anemia. All of the above was discussed in detail with the patient and nursing. Greater than 35 minutes was spent in the care, review of labs, orders, medications, and treatment plans for this patient today. All questions were answered. Jimena Rockwell MD MTDD
[2017-06-30] MEDS: Levothyroxine 125 MCG TAB PO SCH (05:02)
[2017-06-30] MEDS: Levalbuterol 0.63 MG/3 ML Inhal Soln UD IH SCH ×3 (07:15→19:46)
[2017-06-30] MEDS: Potassium Chloride 20 mEq ER Tab PO SCH (08:07)
[2017-06-30] MEDS: Metoprolol Succinate 50 mg XL Tab PO SCH (08:07)
[2017-06-30] MEDS: Multivitamin With Minerals Tab PO SCH (08:07)
[2017-06-30] MEDS: AZILECT 1 MG PO SCH (08:07)
[2017-06-30] MEDS: levoFLOXacin 250 mg in D5W 250 MG/50 ML BAG IVPB SCH (09:45)
[2017-06-30] MEDS: COMTAN PO SCH ×4 (09:45→21:34)
[2017-06-30] MEDS: RYTARY PO SCH ×4 (09:45→21:34)
--- NOTE | 2017-06-30 13:28 | PN ---
DATE: 06/30/2017 SUBJECTIVE: This is a 76-year-old female who was examined at bedside and this case was reviewed in detail with herself and her physical therapist. The patient remains hospitalized with postoperative left lower lung pneumonia. She is status post left laparoscopic nephrectomy for renal cell carcinoma. Comorbidities include chronic Parkinson disease, chronic hypertension, chronic hypothyroidism and degenerative arthritis. The patient denies any fever, chills, chest pain or shortness of breath and there have been no reports of hematemesis or hemoptysis. PHYSICAL EXAMINATION VITAL SIGNS: Temperature 98.1, respirations 20, pulse 82, blood pressure 129/83, pulse ox 95% on room air. HEENT: Head: Normocephalic, atraumatic. Eyes: No icterus. Ears: Clear. Throat: Noninjected. NECK: Supple. HEART: Regular S1, S2. No pathological rubs, murmurs or gallops. LUNGS: Rhonchi at the left base. No wheezing, no rales. ABDOMEN: Soft. EXTREMITIES: No edema. SKIN: Without rash. NEUROLOGIC: Chronic parkinsonism. VASCULAR: Legs warm to touch. PSYCHOLOGIC: Chronic anxiety. LABORATORY DATA: White count 9900, hemoglobin 9.3, hematocrit 30.2, platelets 362,000. Sodium 141, K 3.9, chloride 103, bicarb 30, BUN 21, creatinine 1.2, random blood sugar 113, calcium 9. IMPRESSION: A 76-year-old female admitted with left lower lung pneumonia postoperatively after laparoscopic left nephrectomy for renal cell carcinoma with comorbidities of chronic parkinsonism, chronic hypertension, peptic ulcer disease with gastroesophageal reflux disease, history of polycythemia vera, history of chronic anemia, hypothyroidism, degenerative arthritis, chronic hypertension and deconditioning and anxiety. PLAN: The plan as discussed with the patient and physical therapy will be to continue reconditioning and gait training while maintaining fall precaution, while in the hospital, she remains on a heart-healthy soft bland diet and nasal O2 p.r.n. She is receiving Zofran 4 mg IV every 6 hours p.r.n. nausea or vomiting, Xopenex 0.63 mg inhalational every 6 hours, metoprolol succinate, Toprol XL 50 mg p.o. daily, multivitamin 1 tablet daily, Synthroid 125 mcg p.o. daily, Sinemet 1 tablet p.o. q.i.d., Pepcid 20 mg p.o. at bedtime, Levaquin 250 mg IV daily, potassium chloride 20 mEq p.o. daily, hydrochlorothiazide 25 mg p.o. daily and Parkinson medication as labeled from home including Rytary, Comtan, and Azilect. Ultimate plan will be for discharge to home when medically stable. Greater than 30 minutes was spent in the care, review of meds, labs, orders and physical progress with the patient in therapy. All questions were answered. Jimena Rockwell MD MTDD
--- NOTE | 2017-06-30 17:41 | CP.PCM.PN ---
Subjective - Date & Time of Evaluation Date of Evaluation: 06/30/17 Time of Evaluation: 16:30 - Subjective Subjective: Infectious Disease Follow Up: June 30, 2017 76 yo female who recently had a left nephrectomy for renal cell carcinoma on . She was discharged from the hospital 3 days prior to this hospitalization and developed palpitations and SOB. Her PMD sent her to [facility] [place]. More awake and alert today. Further Ativan doses were held. Urine cultures with no growth. Blood cultures negative to date. Patient states that she feels better. Scars from laproscopic cholecystectomy appear well healed. Not Anxious when seen. Vancomycin random level at 21.5 yesterday. Monitor. Maintaining Levaquin IV. Objective - Vital Signs/Intake and Output Vital Signs (last 24 hours): Temp Pulse Resp BP Pulse Ox 98.5 F 79 18 144/58 L 96 06/30/17 16:00 06/30/17 16:00 06/30/17 16:00 06/30/17 16:00 06/30/17 16:00 - Medications Medications: Current Medications Acetaminophen (Tylenol 325mg Tab) 650 mg PO Q6H PRN; Protocol PRN Reason: Fever >100.4 F Last Admin: 06/29/17 21:36 Dose: 650 mg Carbidopa/Levodopa (Sinemet) 1 tab PO QID [facility] PRN Reason: Protocol Last Admin: 06/30/17 17:00 Dose: 1 tab Famotidine (Pepcid) 20 mg PO HS [facility] PRN Reason: Protocol Last Admin: 06/29/17 21:36 Dose: 20 mg Guaifenesin/Dextromethorphan (Robitussin Dm) 5 ml PO Q6H PRN; Protocol PRN Reason: Cough Home Med (Home Med) 1 unit PO QID [facility] Last Admin: 06/30/17 17:00 Dose: 1 unit Home Med (Home Med) 1 unit PO 0800 [facility] PRN Reason: Protocol Last Admin: 06/30/17 08:07 Dose: Not Given Home Med (Home Med) 1 unit PO QID [facility] Last Admin: 06/30/17 17:00 Dose: 1 unit Hydrochlorothiazide (Hydrodiuril) 25 mg PO DAILY [facility] PRN Reason: Protocol Last Admin: 06/30/17 09:46 Dose: 25 mg Levofloxacin/Dextrose (Levaquin 250mg) 250 mg in 50 mls @ 50 mls/hr IVPB DAILY [facility] PRN Reason: Protocol Last Admin: 06/30/17 09:45 Dose: 50 mls/hr Levalbuterol HCl (Xopenex) 0.63 mg IH [id number] [facility] PRN Reason: Protocol Last Admin: 06/30/17 15:06 Dose: 0.63 mg Levothyroxine Sodium (Synthroid) 125 mcg PO 0600 [facility] PRN Reason: Protocol Last Admin: 06/30/17 05:02 Dose: 125 mcg Metoprolol Succinate (Toprol Xl) 50 mg PO BRK [facility] PRN Reason: Protocol Last Admin: 06/30/17 08:07 Dose: 50 mg Multivitamins/Minerals (Therapeutic-M Tab) 1 tab PO 0800 [facility] PRN Reason: Protocol Last Admin: 06/30/17 08:07 Dose: 1 tab Ondansetron HCl (Zofran Inj) 4 mg IVP Q6H PRN; Protocol PRN Reason: Nausea/Vomiting Potassium Chloride (K-Dur 20 Meq Er Tab) 20 meq PO 0800 [facility] Last Admin: 06/30/17 08:07 Dose: 20 meq - Labs Labs: 06/27/17 06:30 06/28/17 06:45 - Constitutional Appears: Non-toxic, No Acute Distress, Chronically Ill - Head Exam Head Exam: ATRAUMATIC, NORMOCEPHALIC - Eye Exam Eye Exam: EOMI, PERRL Pupil Exam: NORMAL ACCOMODATION, PERRL - ENT Exam ENT Exam: Mucous Membranes Moist, Normal External Ear Exam, TM's Normal Bilaterally - Neck Exam Neck Exam: Full ROM, Normal Inspection - Respiratory Exam Respiratory Exam: Clear to Ausculation Bilateral, NORMAL BREATHING PATTERN. absent: Rales, Rhonchi, Wheezes - Cardiovascular Exam Cardiovascular Exam: REGULAR RHYTHM, RRR, +S1, +S2 - GI/Abdominal Exam GI & Abdominal Exam: Soft, Normal Bowel Sounds. absent: Distended, Tenderness - Extremities Exam Extremities Exam: Full ROM, Normal Inspection - Neurological Exam Neurological Exam: Alert, Awake, CN II-XII Intact, Oriented x3 - Psychiatric Exam Psychiatric exam: Normal Affect, Normal Mood - Skin Skin Exam: Intact, Normal Color Assessment and Plan - Assessment and Plan (Free Text) Assessment: 76 yo female with recent nephrectomy for Renal Cell Carcinoma brought to [facility] for SOB and palpitations. Low probability VQ scan. Left lower lobe pneumonia noted on VQ scan. She makes no complaints at this time. She states she is comfortable. Unclear the patient's reaction to PCN as she is not coherent to ask at this time. Patient had a laproscopic nephrectomy performed less than a week ago at [facility] of the left kidney. Will continue Levaquin renally dosed at this time. Monitor Vancomycin level on patient. Random level yesterday 21.5. No new complaints. Thank you for allowing me to participate in the care of the patient, we will follow with you.
[2017-07-01] MEDS: Levalbuterol 0.63 MG/3 ML Inhal Soln UD IH SCH ×5 (02:25→21:05)
[2017-07-01] MEDS: Levothyroxine 125 MCG TAB PO SCH (05:59)
[2017-07-01] MEDS: Multivitamin With Minerals Tab PO SCH (07:49)
[2017-07-01] MEDS: Metoprolol Succinate 50 mg XL Tab PO SCH (07:49)
[2017-07-01] MEDS: AZILECT 1 MG PO SCH (07:49)
[2017-07-01] MEDS: Potassium Chloride 20 mEq ER Tab PO SCH (07:49)
[2017-07-01] MEDS: RYTARY PO SCH ×4 (09:53→21:20)
[2017-07-01] MEDS: levoFLOXacin 250 mg in D5W 250 MG/50 ML BAG IVPB SCH (09:53)
[2017-07-01] MEDS: COMTAN PO SCH ×4 (09:53→21:20)
--- NOTE | 2017-07-01 17:01 | PN ---
DATE: 07/01/2017 SUBJECTIVE: This 76-year-old female was examined at bedside and this case was reviewed in detail with herself and her nurse, Chery Durand, registered nurse. The patient is cooperating with physical therapy. She denies fever, chills, chest pain or hemoptysis or hematemesis. She is receiving parenteral antibiotics for newly noted left lower lung pneumonia postoperatively after she recently underwent left laparoscopic nephrectomy for renal cell carcinoma. She at present denies fever and chills. PHYSICAL EXAMINATION VITAL SIGNS: Temperature is 98.2, respirations 18, pulse 79 and blood pressure 140/64 with a pulse ox of 99%. HEENT: Head: Normocephalic, atraumatic. Eyes: No icterus. Ears: Clear. Throat: Noninjected. NECK: Supple. HEART: Regular S1, S2. LUNGS: With occasional rhonchi at the left base. No wheezing, no rales. ABDOMEN: Soft. EXTREMITIES: No edema. SKIN: Without rash. NEUROLOGIC: Chronic parkinsonism. VASCULAR: Legs warm to touch. PSYCHOLOGIC: Chronic anxiety. LABORATORY DATA: White count 9900, hemoglobin 9.3, hematocrit 30.2, platelets 362,000. Sodium 141, K 3.9, chloride 103, bicarb 30, BUN 21, creatinine 1.2, random blood sugar 113, calcium normal at 9.0. Chest x-ray on admission that showed a left lower lung infiltrate, new. IMPRESSION: A 76-year-old female with postoperative left lower lung pneumonia, status post laparoscopic left nephrectomy for renal cell carcinoma with comorbidities of chronic parkinsonism, chronic hypertension, peptic ulcer disease with gastroesophageal reflux disease, polycythemia vera, anemia of chronic disease, hypothyroidism, degenerative arthritis and chronic anxiety. PLAN: The plan as discussed with the patient will be to continue medication including Rytary, Comtan, and Azilect as directed from home medication bottle labels. She continues on hydrochlorothiazide 25 mg p.o. daily , K-Dur 20 mEq p.o. daily, Levaquin 250 mg IV daily, Pepcid 20 mg p.o. at bedtime, Robitussin DM 5 mL p.o. every 6 hours p.r.n. cough, Sinemet 1 tablet p.o. q.i.d., Synthroid 125 mcg p.o. daily, multivitamin 1 tablet daily, Toprol XL 50 mg p.o. daily, Xopenex inhalational therapy 0.63 mg every 6 hours and Tylenol 650 p.o. every 6 hours p.r.n. pain or temperature greater than 101. The patient will have a repeat basic metabolic panel, CBC in a.m. I am ordering a chest x-ray tomorrow with ultimate plan for discharge to home when medically stable. The patient continues on therapeutic exercise and reconditioning with physical therapy and all of the above was reviewed in detail with the patient and nursing. Greater than 35 minutes was spent in the care, review of x-rays, labs, ordering of medication and orders for this patient today. All questions were answered. Jimena Rockwell MD MTDD
--- NOTE | 2017-07-01 18:01 | CP.PCM.PN ---
Subjective - Date & Time of Evaluation Date of Evaluation: 07/01/17 Time of Evaluation: 17:00 - Subjective Subjective: Infectious Disease Follow Up: July 01, 2017 76 yo female who recently had a left nephrectomy for renal cell carcinoma on . She was discharged from the hospital 3 days prior to this hospitalization and developed palpitations and SOB. Her PMD sent her [place] [facility] [place]. More awake and alert today. Further Ativan doses were held. Urine cultures with no growth. Blood cultures negative to date. Patient states that she feels better. Scars from laproscopic cholecystectomy appear well healed. Not Anxious when seen. Vancomycin random level at 21.5 yesterday. Monitor. Maintaining Levaquin IV. Objective - Vital Signs/Intake and Output Vital Signs (last 24 hours): Temp Pulse Resp BP Pulse Ox 98.3 F 82 18 119/65 96 07/01/17 17:03 07/01/17 17:03 07/01/17 17:03 07/01/17 17:03 07/01/17 17:03 - Medications Medications: Current Medications Acetaminophen (Tylenol 325mg Tab) 650 mg PO Q6H PRN; Protocol PRN Reason: Pain, Mild (1-3) Last Admin: 07/01/17 17:10 Dose: 650 mg Carbidopa/Levodopa (Sinemet) 1 tab PO QID [facility] PRN Reason: Protocol Last Admin: 07/01/17 17:15 Dose: 1 tab Famotidine (Pepcid) 20 mg PO HS [facility] PRN Reason: Protocol Last Admin: 06/30/17 21:35 Dose: 20 mg Guaifenesin/Dextromethorphan (Robitussin Dm) 5 ml PO Q6H PRN; Protocol PRN Reason: Cough Home Med (Home Med) 1 unit PO QID [facility] Last Admin: 07/01/17 17:09 Dose: 1 unit Home Med (Home Med) 1 unit PO QID [facility] Last Admin: 07/01/17 17:09 Dose: 1 unit Home Med (Home Med) 1 unit PO 0800 [facility] PRN Reason: Protocol Hydrochlorothiazide (Hydrodiuril) 25 mg PO DAILY [facility] PRN Reason: Protocol Last Admin: 07/01/17 09:53 Dose: 25 mg Levofloxacin/Dextrose (Levaquin 250mg) 250 mg in 50 mls @ 50 mls/hr IVPB DAILY [facility] PRN Reason: Protocol Last Admin: 07/01/17 09:53 Dose: 50 mls/hr Levalbuterol HCl (Xopenex) 0.63 mg IH [id number] [facility] PRN Reason: Protocol Last Admin: 07/01/17 13:09 Dose: 0.63 mg Levothyroxine Sodium (Synthroid) 125 mcg PO 0600 [facility] PRN Reason: Protocol Last Admin: 07/01/17 05:59 Dose: 125 mcg Metoprolol Succinate (Toprol Xl) 50 mg PO BRK [facility] PRN Reason: Protocol Last Admin: 07/01/17 07:49 Dose: 50 mg Multivitamins/Minerals (Therapeutic-M Tab) 1 tab PO 0800 [facility] PRN Reason: Protocol Last Admin: 07/01/17 07:49 Dose: 1 tab Ondansetron HCl (Zofran Inj) 4 mg IVP Q6H PRN; Protocol PRN Reason: Nausea/Vomiting Potassium Chloride (K-Dur 20 Meq Er Tab) 20 meq PO 0800 [facility] Last Admin: 07/01/17 07:49 Dose: 20 meq - Labs Labs: 06/27/17 06:30 06/28/17 06:45 - Constitutional Appears: Non-toxic, No Acute Distress, Chronically Ill - Head Exam Head Exam: ATRAUMATIC, NORMOCEPHALIC - Eye Exam Eye Exam: EOMI, PERRL Pupil Exam: NORMAL ACCOMODATION, PERRL - ENT Exam ENT Exam: Mucous Membranes Moist, Normal External Ear Exam, TM's Normal Bilaterally - Neck Exam Neck Exam: Full ROM, Normal Inspection - Respiratory Exam Respiratory Exam: Clear to Ausculation Bilateral, NORMAL BREATHING PATTERN. absent: Rales, Rhonchi, Wheezes - Cardiovascular Exam Cardiovascular Exam: REGULAR RHYTHM, RRR, +S1, +S2 - GI/Abdominal Exam GI & Abdominal Exam: Soft, Normal Bowel Sounds. absent: Distended, Tenderness - Extremities Exam Extremities Exam: Full ROM, Normal Inspection - Neurological Exam Neurological Exam: Alert, Awake, CN II-XII Intact, Oriented x3 - Psychiatric Exam Psychiatric exam: Normal Affect, Normal Mood - Skin Skin Exam: Intact, Normal Color Assessment and Plan - Assessment and Plan (Free Text) Assessment: 76 yo female with recent nephrectomy for Renal Cell Carcinoma [place] [facility] [place] and [place]pitations. Low probability VQ scan. Left lower lobe pneumonia noted on VQ scan. She makes no complaints at this time. She states she is comfortable. Unclear the patient's reaction to PCN as she is not coherent to ask at this time. Patient had a laproscopic nephrectomy performed less than a week ago at [facility] of the left kidney. Will continue Levaquin renally dosed at this time. Monitoring Vancomycin level on patient. Last random level was 21.5. No new complaints. Thank you for allowing me to participate in the care of the patient, we will follow with you.
[2017-07-02] MEDS: Levalbuterol 0.63 MG/3 ML Inhal Soln UD IH SCH ×5 (02:15→20:15)
[2017-07-02] MEDS: Levothyroxine 125 MCG TAB PO SCH (06:14)
[2017-07-02 06:56] LABS: HEMOGLOBIN 10.7 g/dL (12.0-16.0); MEAN CELL VOLUME 78.7 fl (80.0-105.0); MEAN CORPUSCULAR HGB CONC 30.5 g/dl (31.0-37.0); MEAN PLATELET VOLUME 10.2 fl (7.0-11.0); RBC 4.46 10^6/uL (3.5-6.1); RED CELL DISTRIBUTION WIDTH 20.2 % (11.5-14.5); WHITE BLOOD COUNT 12.4 10^3/ul (4.5-11.0)
[2017-07-02 07:12] LABS: CALCIUM 9.3 mg/dL (8.4-10.5)
[2017-07-02] MEDS: Multivitamin With Minerals Tab PO SCH (08:27)
[2017-07-02] MEDS: AZILECT 1 MG PO SCH (08:27)
[2017-07-02] MEDS: Potassium Chloride 20 mEq ER Tab PO SCH (08:28)
[2017-07-02] MEDS: Metoprolol Succinate 50 mg XL Tab PO SCH (08:30)
[2017-07-02] MEDS: RYTARY PO SCH ×4 (10:11→22:43)
[2017-07-02] MEDS: COMTAN PO SCH ×4 (10:11→22:43)
[2017-07-02] MEDS: levoFLOXacin 250 mg in D5W 250 MG/50 ML BAG IVPB SCH (10:14)
[2017-07-02] MEDS: Sodium Chloride 0.9% 1,000 ML IV SCH (14:27)
--- NOTE | 2017-07-02 14:30 | RAD ---
HISTORY: recent pneumonia COMPARISON: 06/23/2017 TECHNIQUE: Chest PA and lateral FINDINGS: LUNGS: No active pulmonary disease. PLEURA: There is a moderate size left pleural effusion and a small right effusion CARDIOVASCULAR: Normal. OSSEOUS STRUCTURES: No significant abnormalities. VISUALIZED UPPER ABDOMEN: Normal. OTHER FINDINGS: None. IMPRESSION: Moderate size left pleural effusion. Small right effusion
--- NOTE | 2017-07-02 14:54 | US ---
PROCEDURE: Ultrasound of the Kidneys HISTORY: azotemia s/p l nephrectomy COMPARISON: None available. TECHNIQUE: Sonogram of the kidneys. FINDINGS: RIGHT KIDNEY: Measures: 5.1 x 5.7 x 9.6 cm. Echogenic focus mid pole region 1 shadowing 9 x 12 mm. Smaller echogenic focus lower pole 7 x 8 mm. Confirmation stent the collecting system adjacent to the midpole calculus. LEFT KIDNEY: Prior nephrectomy OTHER FINDINGS: None. IMPRESSION: Midpole calculus 9 x 12 mm, lower pole calculus 7 x 8 mm. Proximal double-J stent coiled in the mid pole collecting system.
--- NOTE | 2017-07-02 15:54 | CP.PCM.PN ---
Subjective - Date & Time of Evaluation Date of Evaluation: 07/02/17 Time of Evaluation: 15:00 - Subjective Subjective: Infectious Disease Follow Up: July 02, 2017 76 yo female who recently had a left nephrectomy for renal cell carcinoma on . She was discharged from the hospital 3 days prior to this hospitalization and developed palpitations and SOB. Her PMD sent her to [facility] for further evaluation. More awake and alert today. Further Ativan doses were held. Urine cultures with no growth. Blood cultures negative to date. Patient states that she feels better. Scars from laproscopic cholecystectomy appear well healed. Not Anxious when seen. Vancomycin random level at 21.5 a few days ago but Vancomycin IV has been stopped since. Monitor. Maintaining Levaquin IV. Patient appears comfortable. Objective - Vital Signs/Intake and Output Vital Signs (last 24 hours): Temp Pulse Resp BP Pulse Ox 97.8 F 78 18 122/69 98 07/02/17 10:00 07/02/17 10:00 07/02/17 10:00 07/02/17 10:00 07/02/17 10:00 - Medications Medications: Current Medications Acetaminophen (Tylenol 325mg Tab) 650 mg PO Q6H PRN; Protocol PRN Reason: Pain, Mild (1-3) Last Admin: 07/02/17 10:10 Dose: 650 mg Carbidopa/Levodopa (Sinemet) 1 tab PO QID [facility] PRN Reason: Protocol Last Admin: 07/02/17 14:26 Dose: 1 tab Famotidine (Pepcid) 20 mg PO HS [facility] PRN Reason: Protocol Last Admin: 07/01/17 21:22 Dose: 20 mg Guaifenesin/Dextromethorphan (Robitussin Dm) 5 ml PO Q6H PRN; Protocol PRN Reason: Cough Home Med (Home Med) 1 unit PO QID [facility] Last Admin: 07/02/17 14:25 Dose: 1 unit Home Med (Home Med) 1 unit PO QID [facility] Last Admin: 07/02/17 14:26 Dose: 1 unit Home Med (Home Med) 1 unit PO 0800 [facility] PRN Reason: Protocol Last Admin: 07/02/17 08:27 Dose: 1 unit Hydrochlorothiazide (Hydrodiuril) 25 mg PO DAILY [facility] PRN Reason: Protocol Last Admin: 07/02/17 10:12 Dose: 25 mg Levofloxacin/Dextrose (Levaquin 250mg) 250 mg in 50 mls @ 50 mls/hr IVPB DAILY [facility] PRN Reason: Protocol Last Admin: 07/02/17 10:14 Dose: 50 mls/hr Sodium Chloride (Sodium Chloride 0.9%) 1,000 mls @ 70 mls/hr IV .[id number] [facility] Last Admin: 07/02/17 14:27 Dose: 70 mls/hr Levalbuterol HCl (Xopenex) 0.63 mg IH [id number] [facility] PRN Reason: Protocol Last Admin: 07/02/17 13:43 Dose: Not Given Levothyroxine Sodium (Synthroid) 125 mcg PO 0600 [facility] PRN Reason: Protocol Last Admin: 07/02/17 06:14 Dose: 125 mcg Metoprolol Succinate (Toprol Xl) 50 mg PO BRK [facility] PRN Reason: Protocol Last Admin: 07/02/17 08:30 Dose: 50 mg Multivitamins/Minerals (Therapeutic-M Tab) 1 tab PO 0800 [facility] PRN Reason: Protocol Last Admin: 07/02/17 08:27 Dose: 1 tab Ondansetron HCl (Zofran Inj) 4 mg IVP Q6H PRN; Protocol PRN Reason: Nausea/Vomiting Potassium Chloride (K-Dur 20 Meq Er Tab) 20 meq PO 0800 [facility] Last Admin: 07/02/17 08:28 Dose: 20 meq - Labs Labs: 07/02/17 06:30 07/02/17 06:30 - Constitutional Appears: Non-toxic, No Acute Distress, Chronically Ill - Head Exam Head Exam: ATRAUMATIC, NORMOCEPHALIC - Eye Exam Eye Exam: EOMI, PERRL Pupil Exam: NORMAL ACCOMODATION, PERRL - ENT Exam ENT Exam: Mucous Membranes Moist, Normal External Ear Exam, TM's Normal Bilaterally - Neck Exam Neck Exam: Full ROM, Normal Inspection - Respiratory Exam Respiratory Exam: Clear to Ausculation Bilateral, NORMAL BREATHING PATTERN. absent: Rales, Rhonchi, Wheezes - Cardiovascular Exam Cardiovascular Exam: REGULAR RHYTHM, RRR, +S1, +S2 - GI/Abdominal Exam GI & Abdominal Exam: Soft, Normal Bowel Sounds. absent: Distended, Tenderness - Extremities Exam Extremities Exam: Full ROM, Normal Inspection - Neurological Exam Neurological Exam: Alert, Awake, CN II-XII Intact, Oriented x3 - Psychiatric Exam Psychiatric exam: Normal Affect, Normal Mood - Skin Skin Exam: Intact, Normal Color Assessment and Plan - Assessment and Plan (Free Text) Assessment: 76 yo female with recent nephrectomy for Renal Cell Carcinoma brought to [facility] for SOB and palpitations. Low probability VQ scan. Left lower lobe pneumonia noted on VQ scan. She makes no complaints at this time. She states she is comfortable. Unclear the patient's reaction to PCN as she is not coherent to ask at this time. Patient had a laproscopic nephrectomy performed less than a week ago at [facility] of the left kidney. Will continue Levaquin renally dosed at this time. Monitoring Vancomycin level on patient. Last random level was 21.5. No new complaints. Patient appears comfortable. Thank you for allowing me to participate in the care of the patient, we will follow with you. Possible discharge tomorrow.
[2017-07-03] MEDS: Levalbuterol 0.63 MG/3 ML Inhal Soln UD IH SCH ×4 (02:05→20:39)
[2017-07-03] MEDS: Sodium Chloride 0.9% 1,000 ML IV SCH ×3 (05:38→21:13)
[2017-07-03] MEDS: Levothyroxine 125 MCG TAB PO SCH (05:41)
[2017-07-03 06:32] LABS: HEMOGLOBIN 10.7 g/dL (12.0-16.0); MEAN CELL VOLUME 79.5 fl (80.0-105.0); MEAN CORPUSCULAR HEMOGLOBIN 24.4 pg (25.0-35.0); MEAN CORPUSCULAR HGB CONC 30.7 g/dl (31.0-37.0); MEAN PLATELET VOLUME 10.6 fl (7.0-11.0); RBC 4.39 10^6/uL (3.5-6.1); RED CELL DISTRIBUTION WIDTH 20.1 % (11.5-14.5); WHITE BLOOD COUNT 10.8 10^3/ul (4.5-11.0)
[2017-07-03 06:51] LABS: CALCIUM 9.5 mg/dL (8.4-10.5)
[2017-07-03] MEDS: Potassium Chloride 20 mEq ER Tab PO SCH (08:06)
[2017-07-03] MEDS: Multivitamin With Minerals Tab PO SCH (08:06)
[2017-07-03] MEDS: AZILECT 1 MG PO SCH (08:07)
[2017-07-03] MEDS: Metoprolol Succinate 50 mg XL Tab PO SCH (08:08)
[2017-07-03] MEDS: RYTARY PO SCH ×4 (10:10→21:14)
[2017-07-03] MEDS: COMTAN PO SCH ×4 (10:10→21:14)
[2017-07-03] MEDS: levoFLOXacin 250 mg in D5W 250 MG/50 ML BAG IVPB SCH (10:30)
--- NOTE | 2017-07-03 14:11 | PN ---
DATE: 07/02/2017 SUBJECTIVE: This 77-year-old female was examined at the bedside and this case was reviewed in detail with herself and her nurse, Zari Hilliard, registered nurse. The patient is cooperating with nursing staff, is out of bed to chair and is receiving daily physical therapy for reconditioning and gait training. Of note, she had an elevated white blood cell count today of 12,400 in the absence of fever, chills, cough or dysuria. The patient is receiving IV antibiotics for a postoperative left lower lung pneumonia, acquired status post left laparoscopic nephrectomy for renal cell carcinoma. Also on evaluation today, the patient was noted to have a BUN of 38 and creatinine of 1.5 suggestive of dehydration, prerenal azotemia and this was discussed with the patient as well. PHYSICAL EXAMINATION VITAL SIGNS: Temperature of 98.3, respirations 18, pulse 78, blood pressure 110/64 with pulse ox 96% on room air. HEENT: Head normocephalic, atraumatic. Eyes, no icterus. Ears clear. Throat, noninjected. NECK: Supple. HEART: Regular S1, S2. No pathological rubs, murmurs or gallops. LUNGS: With occasional rhonchi at the left base. No wheezing, no rales. ABDOMEN: Soft. EXTREMITIES: No edema. SKIN: No rash. VASCULAR: Legs warm to touch. PSYCHOLOGICAL: Chronic anxiety. NEUROLOGIC: Chronic parkinsonism. LABORATORY DATA: Sodium 140, potassium 4.2, chloride 103, bicarbonate 27, BUN 38, creatinine 1.5, random blood sugar 102 and calcium level 9.3. White count 12,400, hemoglobin 10.7, hematocrit 35.1, platelets 513,000. IMPRESSION: This is a 77-year-old female who remains hospitalized, receiving pulmonary toiletry and parenteral antibiotics for left lower lung pneumonia with comorbidities of chronic Parkinsonism, chronic hypertension, anemia of chronic disease, history of peptic ulcer disease with gastroesophageal reflux disease, hypothyroidism, degenerative arthritis, history of polycythemia vera, recently status post left laparoscopic nephrectomy for newly noted left renal cell carcinoma and history of right kidney ureteral stent for history of right renal pelvic kidney stone, now with leukocytosis and absence of fever as well as prerenal azotemia. PLAN: My plans as discussed with the patient and Nursing will be to start this patient on gentle IV fluids including 0.9 saline at 70 mL/hour. She is also being scheduled for renal ultrasound for completeness sake and I have ordered repeat blood work including basic metabolic panel and CBC for the morning. I have asked nurse, Zari Hilliard, to speak with Dr. Darshan Ceja from Infectious Disease regarding newly noted leukocytosis to see if he has any further recommendations or orders and the patient is also being scheduled for a followup chest x-ray to assess the adequacy of her pneumonic infiltrate treatment. The patient is anxious for discharge to home and this will be discussed based on her repeat testings of chest x-ray, renal ultrasound and morning blood work and Dr. Darshan Ceja' recommendations. Greater than 35 minutes was spent in the care management, review of labs, orders, medication and discussion with Nursing for this patient today. All questions were answered. Jimena Rockwell MD MTDJorge
[2017-07-03 16:14] VITALS: RESP 18; TEMP 98.1; O2SAT 95
--- NOTE | 2017-07-03 17:50 | CP.PCM.PN ---
Subjective - Date & Time of Evaluation Date of Evaluation: 07/03/17 Time of Evaluation: 17:00 - Subjective Subjective: Infectious Disease Follow Up: July 03, 2017 76 yo female who recently had a left nephrectomy for renal cell carcinoma on . She was discharged from the hospital 3 days prior to this hospitalization and developed palpitations and SOB. Her [place]D [place] [facility] [place]. More awake and alert today. Further Ativan doses were held. Urine cultures with no growth. Blood cultures negative to date. Patient states that she feels better. Scars from laproscopic cholecystectomy appear well healed. Not Anxious when seen. Vancomycin random level at 21.5 a few days ago but Vancomycin IV has been stopped since. Monitor. Maintaining Levaquin IV. Patient appears comfortable. She is hoping to be sent home soon. Creatinine at 1.4 now which is slightly elevated compared to the rest of the hospitalization. Objective - Vital Signs/Intake and Output Vital Signs (last 24 hours): Temp Pulse Resp BP Pulse Ox 98.1 F 82 18 127/58 L 95 07/03/17 16:00 07/03/17 16:00 07/03/17 16:00 07/03/17 16:00 07/03/17 16:00 - Medications Medications: Current Medications Acetaminophen (Tylenol 325mg Tab) 650 mg PO Q6H PRN; Protocol PRN Reason: Pain, Mild (1-3) Last Admin: 07/03/17 14:32 Dose: 650 mg Carbidopa/Levodopa (Sinemet) 1 tab PO QID [facility] PRN Reason: Protocol Last Admin: 07/03/17 13:19 Dose: 1 tab Famotidine (Pepcid) 20 mg PO HS [facility] PRN Reason: Protocol Last Admin: 07/02/17 21:04 Dose: 20 mg Guaifenesin/Dextromethorphan (Robitussin Dm) 5 ml PO Q6H PRN; Protocol PRN Reason: Cough Home Med (Home Med) 1 unit PO QID [facility] Last Admin: 07/03/17 13:19 Dose: 1 unit Home Med (Home Med) 1 unit PO QID [facility] Last Admin: 07/03/17 13:19 Dose: 1 unit Home Med (Home Med) 1 unit PO 0800 [facility] PRN Reason: Protocol Last Admin: 07/03/17 08:07 Dose: 1 unit Hydrochlorothiazide (Hydrodiuril) 25 mg PO DAILY [facility] PRN Reason: Protocol Last Admin: 07/03/17 10:11 Dose: 25 mg Sodium Chloride (Sodium Chloride 0.9%) 1,000 mls @ 70 mls/hr IV .[id number] [facility] Last Admin: 07/03/17 05:38 Dose: 70 mls/hr Levalbuterol HCl (Xopenex) 0.63 mg IH [id number] [facility] PRN Reason: Protocol Last Admin: 07/03/17 13:16 Dose: 0.63 mg Levothyroxine Sodium (Synthroid) 125 mcg PO 0600 [facility] PRN Reason: Protocol Last Admin: 07/03/17 05:41 Dose: 125 mcg Metoprolol Succinate (Toprol Xl) 50 mg PO BRK [facility] PRN Reason: Protocol Last Admin: 07/03/17 08:08 Dose: 50 mg Multivitamins/Minerals (Therapeutic-M Tab) 1 tab PO 0800 [facility] PRN Reason: Protocol Last Admin: 07/03/17 08:06 Dose: 1 tab Ondansetron HCl (Zofran Inj) 4 mg IVP Q6H PRN; Protocol PRN Reason: Nausea/Vomiting Potassium Chloride (K-Dur 20 Meq Er Tab) 20 meq PO 0800 [facility] Last Admin: 07/03/17 08:06 Dose: 20 meq - Labs Labs: 07/03/17 06:00 07/03/17 06:00 - Constitutional Appears: Non-toxic, No Acute Distress, Chronically Ill - Head Exam Head Exam: ATRAUMATIC, NORMOCEPHALIC - Eye Exam Eye Exam: EOMI, PERRL Pupil Exam: NORMAL ACCOMODATION, PERRL - ENT Exam ENT Exam: Mucous Membranes Moist, Normal External Ear Exam, TM's Normal Bilaterally - Neck Exam Neck Exam: Full ROM, Normal Inspection - Respiratory Exam Respiratory Exam: Clear to Ausculation Bilateral, NORMAL BREATHING PATTERN. absent: Rales, Rhonchi, Wheezes - Cardiovascular Exam Cardiovascular Exam: REGULAR RHYTHM, RRR, +S1, +S2 - GI/Abdominal Exam GI & Abdominal Exam: Soft, Normal Bowel Sounds. absent: Distended, Tenderness - Extremities Exam Extremities Exam: Full ROM, Normal Inspection - Neurological Exam Neurological Exam: Alert, Awake, CN II-XII Intact, Oriented x3 - Psychiatric Exam Psychiatric exam: Normal Affect, Normal Mood - Skin Skin Exam: Intact, Normal Color Assessment and Plan - Assessment and Plan (Free Text) Assessment: 76 yo female with recent nephrectomy for Renal Cell Carcinoma [place] [facility] [place] and [place]pitations. Low probability VQ scan. Left lower lobe pneumonia noted on VQ scan. She makes no complaints at this time. She states she is comfortable. Unclear the patient's reaction to PCN as she is not coherent to ask at this time. Patient had a laproscopic nephrectomy performed less than a week ago at [facility] of the left kidney. Will continue Levaquin renally dosed at this time. Monitoring Vancomycin level on patient. Last random level was 21.5. No new complaints. Patient appears comfortable. Had mild leukocytosis yesterday that has normalized today. Thank you for allowing me to participate in the care of the patient, we will follow with you. Possible discharge tomorrow.
[2017-07-04] MEDS: Levalbuterol 0.63 MG/3 ML Inhal Soln UD IH SCH ×2 (01:27→07:26)
--- NOTE | 2017-07-04 03:34 | PN ---
DATE: 07/03/2017 SUBJECTIVE: This 77-year-old female who was examined at the bedside. This case was reviewed in detail with her nurse, Luciana Westfall and Dr. Raulito Granados from Interventional Radiology. The patient had a followup chest x-ray for further evaluation of admission left lower lung pneumonia. This was reviewed as completed on 07/02/2017 and it showed left lower lung pleural effusion of a moderate size and a small right pleural effusion. I have spoken to Dr. Raulito Granados from Interventional Radiology who has plans to proceed with thoracic ultrasound and thoracentesis in the a.m. The patient denies any fever, chills, chest pain or shortness of breath. PHYSICAL EXAMINATION: VITAL SIGNS: Temperature of 97.6, respirations 20, pulse 80 and blood pressure of 141/71 with a pulse ox of 96% on room air. HEENT: Head, normocephalic and atraumatic. Eyes, no icterus. Ears, clear. Throat, noninjected. NECK: Supple. HEART: S1, S2. LUNGS: Decreased breath sounds at left base. No wheezing, no rales. ABDOMEN: Soft. EXTREMITIES: No edema. SKIN: Without rash. NEUROLOGIC: Intact. PSYCHOLOGIC: Chronic anxiety. VASCULAR: Legs warm to touch. LABORATORY DATA: White count 10,800, hemoglobin 10.7, hematocrit 34.9, platelets 512,000. Sodium 141, K 4.1, chloride 105, bicarb 27, BUN 33, creatinine 1.4 and random blood sugar 100. Renal ultrasound was reviewed. It showed absent left kidney status post nephrectomy with a right mid-pole kidney stone measuring 9 x 12 mm and a right lower pole stone measuring 7 x 8 mm. Also present is the double-J stent in her collecting system that is there on a chronic basis. IMPRESSION: This is a 77-year-old female, admitted with left lower lung pneumonia, status post laparoscopic left nephrectomy for renal cell carcinoma, now with left pleural effusion that will be evaluated by chest ultrasound for thoracentesis and comorbidities of chronic parkinsonism, hypertension, peptic ulcer disease with gastroesophageal reflux disease, polycythemia vera, anemia of chronic disease, hypothyroidism and degenerative arthritis. PLAN: At present, is to continue Parkinson's medications including Rytary, Comtan and Azilect. She continues on hydrochlorothiazide, K-Dur, Pepcid, Robitussin DM, Synthroid, multivitamin, Toprol XL, inhalational Xopenex and Zofran p.r.n. nausea and vomiting. The patient has been encouraged to drink oral fluids. IV fluids will be discontinued in a.m. and ultimate plan will be to discharge to home when cleared by Infectious Disease and Interventional Radiology. Greater than 35 minutes was spent in the care management, review of labs, x-rays, ultrasounds, medication, orders and discussion of impending testing with patient and co-mental hygiene consultant Dr. Raulito Granados and nursing. All questions were answered. Jimena Rockwell MD MTDJorge
[2017-07-04] MEDS: Sodium Chloride 0.9% 1,000 ML IV SCH (05:15)
[2017-07-04] MEDS: Levothyroxine 125 MCG TAB PO SCH (05:16)
[2017-07-04] MEDS: AZILECT 1 MG PO SCH (07:34)
[2017-07-04] MEDS: Potassium Chloride 20 mEq ER Tab PO SCH (07:35)
[2017-07-04] MEDS: Metoprolol Succinate 50 mg XL Tab PO SCH (07:36)
[2017-07-04] MEDS: Multivitamin With Minerals Tab PO SCH (07:36)
[2017-07-04 07:42] VITALS: BP 153/63; PULSE 81
[2017-07-04] MEDS: COMTAN PO SCH (12:22)
[2017-07-04] MEDS: RYTARY PO SCH (12:22)
--- NOTE | 2017-07-06 09:57 | DS ---
DATE OF EVALUATION: 07/04/2017 FINAL DIAGNOSES: Left lower lung pneumonia, improved, status post thoracentesis, status post left nephrectomy for renal cell carcinoma, chronic parkinsonism, chronic hypertension, degenerative arthritis, hypothyroidism, anxiety neurosis. DISPOSITION: Patient will be admitted to room 574, bed 1. DISCHARGE MEDICATIONS: Discharge medications will be Rytary, Comtan and Azilect as directed from home prescription bottles, hydrochlorothiazide 25 mg daily, Pepcid 20 mg at bedtime, Sinemet 25/100 p.o. four times a day, Synthroid 125 mcg p.o. daily, therapeutic multivitamin 1 tablet daily,Toprol-XL 50 mg daily. SUMMARY: This 77-year-old female was admitted to the [facility] for reconditioning, gait training and parenteral antibiotics and followup treatment of left lower lung pneumonia. Her course was notable for improvement in clinical symptomatology; however, she manifested leukocytosis and azotemia. Her latest chest x-ray followup revealed improving left lower lobe infiltrate, but a new moderate left pleural effusion. Her latest renal ultrasound showed expected absent left kidney, status post nephrectomy and no hydronephrosis of her right kidney, but maintenance of ureteral stent that was placed because of a 9 x 12 and a 7 x 8 mm stone previously noted on workup in her past. At the time of her discharge, patient is status post thoracentesis with temperature 98.1, respirations 18, pulse 82 and blood pressure 127/58. Pulse ox 95% room air. She will be admitted to [facility]. She will have followup chest x-ray regarding rule out pneumothorax as per Dr. Raulito Granados. We will await the results of her thoracentesis fluid analysis with plans for discharge to home and follow up with her oncologist, Dr. Mcdermott, as an outpatient. Greater than 35 minutes was spent in the care management and discharge preparation for this patient today. Discussion with co-consultants including Dr. Raulito Granados from Interventional Radiology and Dr. Darshan Ceja from Infectious Disease as well as patient and nursing. All questions were answered. Jimena Rockwell MD [facility]
== END 2017-07-04 12:51 | disposition short-term general hospital (02) | DRG 194 ==
LOC: TRCU 14:48
PROVIDERS: ADMIT Internal Medicine; ATTEND Internal Medicine
PROC: F07Z9FZ Gait Training/Functional Ambulation Treatment using Assistive, Adaptive, Supportive or Protective Equipment (ICD-10-PCS; principal; 2017-06-27)
PROC: F07Z8FZ Transfer Training Treatment using Assistive, Adaptive, Supportive or Protective Equipment (ICD-10-PCS; 2017-06-27)
PROC: F07L6ZZ Therapeutic Exercise Treatment of Musculoskeletal System - Lower Back / Lower Extremity (ICD-10-PCS; 2017-06-27)
PROC: F08Z2FZ Grooming/Personal Hygiene Treatment using Assistive, Adaptive, Supportive or Protective Equipment (ICD-10-PCS; 2017-06-30)
PROC: F08Z1FZ Dressing Techniques Treatment using Assistive, Adaptive, Supportive or Protective Equipment (ICD-10-PCS; 2017-07-02)
DX: J18.9 Pneumonia, unspecified organism (principal); J90 Pleural effusion, not elsewhere classified; C64.9 Malignant neoplasm of unspecified kidney, except renal pelvis; G20 Parkinson's disease; M19.90 Unspecified osteoarthritis, unspecified site; I10 Essential (primary) hypertension; F41.1 Generalized anxiety disorder; E03.9 Hypothyroidism, unspecified; K21.9 Gastro-esophageal reflux disease without esophagitis; D63.8 Anemia in other chronic diseases classified elsewhere; D45 Polycythemia vera; K27.9 Peptic ulcer, site unspecified, unspecified as acute or chronic, without hemorrhage or perforation; I35.0 Nonrheumatic aortic (valve) stenosis; E87.6 Hypokalemia; Z90.5 Acquired absence of kidney

== ENCOUNTER 2017-07-04 09:15 | Inpatient (IN) | payer MEDICARE ==
[2017-07-04 11:52] VITALS: BMI 26.5
[2017-07-04 12:07] LABS: BODY FLUID TYPE PLEURAL
--- NOTE | 2017-07-04 12:31 | RAD ---
HISTORY: lt thora COMPARISON: 07/02/2017 TECHNIQUE: Chest PA and lateral FINDINGS: LUNGS: There is linear atelectasis of both lung bases PLEURA: There is a decrease in the left effusion post thoracentesis. No pneumothorax CARDIOVASCULAR: Normal. OSSEOUS STRUCTURES: No significant abnormalities. VISUALIZED UPPER ABDOMEN: Normal. OTHER FINDINGS: None. IMPRESSION: Decrease in left pleural effusion post thoracentesis. No evidence of pneumothorax
--- NOTE | 2017-07-04 13:10 | US ---
PROCEDURE: Ultrasound guided left thoracentesis. CLINICAL HISTORY: Recent left nephrectomy. Left lower lobe pneumonia with left pleural effusion. Shortness of breath. Needs thoracentesis PHYSICIAN(S): Raulito Granados MD. TECHNIQUE: The relative risks and indications of the procedure were explained to the patient and consent obtained. The patient was placed in a sitting position on the stretcher and sonography of the right chest performed. This revealed a small to moderate leftpleural effusion. A left posterolateral intercostal approach was selected and the area prepped and draped usual sterile fashion. 1% Xylocaine was used to anesthetize the skin and soft tissues. A 7 Estonian thoracentesis catheter was trocared into the right pleural cavity and 700 ccof celis fluid aspirated. Specimens were sent to the lab. IMPRESSION: 1. Ultrasound guided left thoracentesis. 700 cc of tanfluid were aspirated. The appropriate labs were sent
[2017-07-04 13:12] LABS: BF GROSS APPEARANCE CLOUDY (CLEAR)
[2017-07-04 13:13] LABS: BODY FLUID TOTAL COUNT 100 (0-0)
[2017-07-04] MEDS ORDERED: Levalbuterol 0.63 MG/3 ML Inhal Soln UD IH PRN (13:24)
[2017-07-04] MEDS ORDERED: Influenza Vaccine 60 mcg/0.5 mL SYR (4YR UP) IM ONE (14:21)
[2017-07-04] MEDS ORDERED: Pneumococcal 23-Valent Vaccine IM ONE (14:21)
--- NOTE | 2017-07-04 15:30 | CP.PCM.PN ---
Subjective - Date & Time of Evaluation Date of Evaluation: 07/04/17 Time of Evaluation: 14:00 - Subjective Subjective: Infectious Disease Consultation/Follow Up: July 04, 2017 76 yo female who recently had a left nephrectomy for renal cell carcinoma on . She was discharged from the hospital 3 days prior to this hospitalization and developed palpitations and SOB. [place] [facility] [place] More awake and alert today. Further Ativan doses were held. Urine cultures with no growth. Blood cultures negative to date. Patient states that she feels better. Scars from laproscopic cholecystectomy appear well healed. Not Anxious when seen. Vancomycin random level at 21.5 a few days ago but Vancomycin IV has been stopped since. Monitor. Maintaining Levaquin IV. Patient appears comfortable. She is hoping to be sent home soon. Creatinine at 1.4 now which is slightly elevated compared to the rest of the hospitalization. Taken to thoracentesis today. Dr. Granados aspirated 700 mL of abarca fluid aspirated. Sent for testing and cultures. PMHx: Renal cell carcinoma, Parkinson's Disease, HTN, Anxiety, Polycytemia Vera, Hypothyroidism PSHx: Laproscopic Nephrectomy (Left Kidney) Allergies: PCN Social Hx: Former tobacco use stopped 50 years ago Occassional EtOH No illicit drug use Active Medications Acetaminophen (Tylenol 325mg Tab) 650 mg PO Q6H PRN PRN Reason: Pain, Mild (1-3) Carbidopa/Levodopa (Sinemet) 1 tab PO QID [facility] Last Admin: 07/04/17 14:48 Dose: Not Given Famotidine (Pepcid) 20 mg PO HS [facility] Home Med (Home Med) 1 unit PO QID [facility] Home Med (Home Med) 1 unit PO DAILY [facility] Home Med (Home Med) 1 unit PO QID [facility] Hydrochlorothiazide (Hydrodiuril) 25 mg PO DAILY [facility] Levalbuterol HCl (Xopenex) 0.63 mg IH [id number] [facility] Levothyroxine Sodium (Synthroid) 125 mcg PO 0600 [facility] Metoprolol Succinate (Toprol Xl) 50 mg PO BRK [facility] Multivitamins/Minerals (Therapeutic-M Tab) 1 tab PO 0800 [facility] Family Hx: Denies ROS: SOB and palpitations. Anxiety and low back pains. NO abdominal pain, melena, hematuria, hematemesis, hematochezia, depression, headaches, dizziness, diarrhea, vomiting, vision loss, hearing loss, loss of consciousness. Objective - Vital Signs/Intake and Output Vital Signs (last 24 hours): Temp Pulse Resp BP Pulse Ox 98.7 F 82 16 173/85 H 99 07/04/17 12:20 07/04/17 12:20 07/04/17 13:35 07/04/17 12:20 07/04/17 12:20 - Medications Medications: Current Medications Acetaminophen (Tylenol 325mg Tab) 650 mg PO Q6H PRN PRN Reason: Pain, Mild (1-3) Carbidopa/Levodopa (Sinemet) 1 tab PO QID [facility] Last Admin: 07/04/17 14:48 Dose: Not Given Famotidine (Pepcid) 20 mg PO HS [facility] Home Med (Home Med) 1 unit PO QID [facility] Home Med (Home Med) 1 unit PO DAILY [facility] Home Med (Home Med) 1 unit PO QID [facility] Hydrochlorothiazide (Hydrodiuril) 25 mg PO DAILY [facility] Levalbuterol HCl (Xopenex) 0.63 mg IH [id number] [facility] Levothyroxine Sodium (Synthroid) 125 mcg PO 0600 [facility] Metoprolol Succinate (Toprol Xl) 50 mg PO BRK [facility] Multivitamins/Minerals (Therapeutic-M Tab) 1 tab PO 0800 [facility] - Constitutional Appears: Non-toxic, No Acute Distress, Chronically Ill - Head Exam Head Exam: ATRAUMATIC, NORMOCEPHALIC - Eye Exam Eye Exam: EOMI, PERRL Pupil Exam: NORMAL ACCOMODATION, PERRL - ENT Exam ENT Exam: Mucous Membranes Moist, Normal External Ear Exam, TM's Normal Bilaterally - Neck Exam Neck Exam: Full ROM, Normal Inspection - Respiratory Exam Respiratory Exam: Clear to Ausculation Bilateral, NORMAL BREATHING PATTERN. absent: Rales, Rhonchi, Wheezes - Cardiovascular Exam Cardiovascular Exam: REGULAR RHYTHM, RRR, +S1, +S2 - GI/Abdominal Exam GI & Abdominal Exam: Soft, Normal Bowel Sounds. absent: Distended, Tenderness - Extremities Exam Extremities Exam: Full ROM, Normal Inspection - Neurological Exam Neurological Exam: Alert, Awake, CN II-XII Intact, Oriented x3 - Psychiatric Exam Psychiatric exam: Normal Affect, Normal Mood - Skin Skin Exam: Intact, Normal Color Assessment and Plan - Assessment and Plan (Free Text) Assessment: 76 yo female with recent nephrectomy for Renal Cell Carcinoma [place] [facility] [place]. Low probability VQ scan. Left lower lobe pneumonia noted on VQ scan. She makes no complaints at this time. She states she is comfortable. Unclear the patient's reaction to PCN as she is not coherent to ask at this time. Patient had a laproscopic nephrectomy performed less than a week ago at [facility] of the left kidney. Had been on Levaquin to this point in time. Last Vancomycin dose was 2017. Check Random Vancomycin level as patient was having difficult clearing Vancomycin dosing while on it. Thoracentesis done today by Dr. Raulito Granados. 700 mL of fluid removed. Abarca colored. Relatively high amount of WBC with leukocyte predominance... more likely due to the patient's malignancy. Cultures were still sent. Limited antibiotic choices due to the patient's PCN allergies. Hold on antibiotic therapy for now until culture results return. Thank you for allowing me to participate in the care of the patient, we will follow with you.
[2017-07-04] MEDS: COMTAN 200 MG PO SCH ×2 (17:02→22:01)
[2017-07-04] MEDS: RYTARY PO SCH ×2 (17:02→22:01)
[2017-07-04 18:02] VITALS: RESP 20
[2017-07-04] MEDS: Levalbuterol 0.63 MG/3 ML Inhal Soln UD IH SCH (19:45)
[2017-07-05 00:53] VITALS: O2SAT 98
[2017-07-05] MEDS: Levalbuterol 0.63 MG/3 ML Inhal Soln UD IH SCH ×3 (02:46→13:39)
[2017-07-05] MEDS ORDERED: Levothyroxine 125 MCG TAB PO SCH (06:00)
[2017-07-05] MEDS ORDERED: Multivitamin With Minerals Tab PO SCH (08:00)
[2017-07-05] MEDS ORDERED: Metoprolol Succinate 50 mg XL Tab PO SCH (08:00)
[2017-07-05 08:19] VITALS: BP 147/75; PULSE 77
[2017-07-05 08:52] VITALS: TEMP 98.6
--- NOTE | 2017-07-05 09:16 | RAD ---
HISTORY: Pneumothorax suspected. Relevant interventional procedure(s): July 04, 2017. Left thoracentesis with recovery of 700 cc of fluid. COMPARISON: Large 11/24/2017, July 04, 2017. TECHNIQUE: Chest PA and lateral FINDINGS: LUNGS: Residual infiltrate left lower lobe. PLEURA: No appreciable left pleural effusion nor is there evidence of pneumothorax. CARDIOVASCULAR: No radiographic findings to suggest acute or significant cardiovascular disease. OSSEOUS STRUCTURES: No significant abnormalities. VISUALIZED UPPER ABDOMEN: Normal. OTHER FINDINGS: None. IMPRESSION: Status post left thoracentesis. No pneumothorax. Residual left lower lobe infiltrate.
[2017-07-05] MEDS ORDERED: AZILECT 1 MG PO SCH (10:00)
[2017-07-05] MEDS: RYTARY PO SCH ×2 (10:22→13:35)
[2017-07-05] MEDS: COMTAN 200 MG PO SCH ×2 (10:23→13:36)
--- NOTE | 2017-07-05 16:47 | CP.PCM.PN ---
Subjective - Date & Time of Evaluation Date of Evaluation: 07/05/17 Time of Evaluation: 12:00 - Subjective Subjective: Infectious Disease Follow Up: July 05, 2017 76 yo female who recently had a left nephrectomy for renal cell carcinoma on . She was discharged from the hospital 3 days prior to this hospitalization and developed palpitations and SOB. Her PMD sent her to [facility] [place]. More awake and alert today. Further Ativan doses were held. Urine cultures with no growth. Blood cultures negative to date. Patient states that she feels better. Scars from laproscopic cholecystectomy appear well healed. Not Anxious when seen. Vancomycin random level at 21.5 a few days ago but Vancomycin IV has been stopped since. Monitor. Maintaining Levaquin IV. Patient appears comfortable. She is hoping to be sent home soon. Creatinine at 1.4 now which is slightly elevated compared to the rest of the hospitalization. Taken to thoracentesis yesterday. Dr. Granados aspirated 700 mL of abarca fluid aspirated. Sent for testing and cultures. Kept in hospital for pneumothorax? X-ray reports stating no pneumothorax. Objective - Vital Signs/Intake and Output Vital Signs (last 24 hours): Temp Pulse Resp BP Pulse Ox 98.6 F 77 20 147/75 98 07/05/17 07:30 07/05/17 08:16 07/05/17 07:30 07/05/17 08:16 07/05/17 07:30 Intake and Output: 07/05/17 07/05/17 06:59 18:59 Intake Total 360 Balance 360 - Constitutional Appears: Non-toxic, No Acute Distress, Chronically Ill - Head Exam Head Exam: ATRAUMATIC, NORMOCEPHALIC - Eye Exam Eye Exam: EOMI, PERRL Pupil Exam: NORMAL ACCOMODATION, PERRL - ENT Exam ENT Exam: Mucous Membranes Moist, Normal External Ear Exam, TM's Normal Bilaterally - Neck Exam Neck Exam: Full ROM, Normal Inspection - Respiratory Exam Respiratory Exam: Clear to Ausculation Bilateral, NORMAL BREATHING PATTERN. absent: Rales, Rhonchi, Wheezes - Cardiovascular Exam Cardiovascular Exam: REGULAR RHYTHM, RRR, +S1, +S2 - GI/Abdominal Exam GI & Abdominal Exam: Soft, Normal Bowel Sounds. absent: Distended, Tenderness - Extremities Exam Extremities Exam: Full ROM, Normal Inspection - Neurological Exam Neurological Exam: Alert, Awake, CN II-XII Intact, Oriented x3 - Psychiatric Exam Psychiatric exam: Normal Affect, Normal Mood - Skin Skin Exam: Intact, Normal Color Assessment and Plan - Assessment and Plan (Free Text) Assessment: 76 yo female with recent nephrectomy for Renal Cell Carcinoma brought to [facility] [place] for SOB and palpitations. Low probability VQ scan. Left lower lobe pneumonia noted on VQ scan. She makes no complaints at this time. She states she is comfortable. Unclear the patient's reaction to PCN as she is not coherent to ask at this time. Patient had a laproscopic nephrectomy performed less than a week ago at [facility] of the left kidney. Had been on Levaquin to this point in time. Last Vancomycin dose was 2017. Check Random Vancomycin level as patient was having difficult clearing Vancomycin dosing while on it. Thoracentesis done today by Dr. Raulito Granados. 700 mL of fluid removed. Abarca colored. Relatively high amount of WBC with leukocyte predominance... more likely due to the patient's malignancy. Cultures were still sent. Limited antibiotic choices due to the patient's PCN allergies. Hold on antibiotic therapy for now until culture results return. Cultures negative to date. No pneumothorax seen in X-rays. Cleared for discharge from ID standpoint. Thank you for allowing me to participate in the care of the patient, we will follow with you.
--- NOTE | 2017-07-05 17:02 | HP ---
DATE OF EXAM: 07/05/2017 HISTORY AND PHYSICAL AND DISCHARGE FOR THIS ADMISSION. ADMISSION AND DISCHARGE DIAGNOSES: Include status post left thoracentesis for pleural effusion, improved; chronic parkinsonism; history of left nephrectomy for renal cell carcinoma; hypothyroidism; hypertension; degenerative arthritis; anxiety neurosis; history of polycythemia vera; improved clinical and radiographic left lower lung pneumonia and anemia of chronic disease. DISPOSITION: Home. FOLLOWUP: With Dr. Mcdermott, oncologist. Follow up with Dr. Duke Epperson, urologist. DISCHARGE MEDICATIONS: Rytary, Comtan and Azilect as per patient prescriptions from home. Hydrochlorothiazide 25 mg p.o. daily, potassium chloride 20 mEq p.o. daily, Sinemet one tablet 10/100 p.o. q.i.d., Synthroid 125 mcg p.o. daily, multivitamin one tablet daily, and Toprol-XL 50 mg p.o. daily. SUMMARY: This is a 77-year-old female who was admitted to [facility] after thoracentesis with a questionable left pneumothorax as per Dr. Raulito Granados. She was noted on two follow up x-rays to have no evidence of pneumothorax and is without any complaints of shortness of breath or hemoptysis. At the time of this dictation, temperature is 98.6, respirations 20, pulse 77 and blood pressure 147/75 with a pulse ox of 98% on room air. Pleural fluid showed pH 7.5, white blood cell count 2362, red blood cell count 6518, neutrophils 32.4, lymphocytes 67.6. The fluid appeared yellow. The patient's chest x-ray was reviewed by Dr. Wilfredo Combs on 07/04/2017 at 11:53 a.m., it showed a linear atelectasis at both lung bases with a decrease in the left effusion post thoracentesis with no pneumothorax. A chest x-ray done later last evening showed residual infiltrate left lower lobe, no appreciable left pleural effusion, no evidence of pneumothorax, no significant abnormalities. The patient is cleared for discharge to home by myself and Dr. Raulito Granados. She has been advised to schedule follow-up appointment with Dr. Duke Epperson and Dr. Mcdermott, Urology and Oncology regarding postoperative management of her left nephrectomy for renal cell carcinoma and the patient was advised to be compliant with medication. All questions were answered. Jimena Rockwell MD [facility] # [id number] M[facility]IN
[2017-07-06 22:15] LABS: TOTAL PROTEIN PLEURAL FLUID 4.1 g/dL
== END 2017-07-05 13:50 | disposition home or self-care (01) | DRG 194 ==
LOC: SDS 09:15 → 5RSO 13:18
PROVIDERS: ADMIT Internal Medicine; ATTEND Internal Medicine
PROC: 0W993ZX Drainage of Right Pleural Cavity, Percutaneous Approach, Diagnostic (ICD-10-PCS; principal; 2017-07-04 11:30)
DX: J18.9 Pneumonia, unspecified organism (principal); C64.2 Malignant neoplasm of left kidney, except renal pelvis; J90 Pleural effusion, not elsewhere classified; G20 Parkinson's disease; D45 Polycythemia vera; E03.9 Hypothyroidism, unspecified; I10 Essential (primary) hypertension; M19.90 Unspecified osteoarthritis, unspecified site; D63.8 Anemia in other chronic diseases classified elsewhere; F41.9 Anxiety disorder, unspecified; Z87.891 Personal history of nicotine dependence

== ENCOUNTER 2017-10-27 09:35 | Day surgery (SDC) | payer MEDICARE ==
[2017-10-27 11:05] VITALS: BMI 26.5
[2017-10-27] MEDS ORDERED: Lidocaine PF 2% (5 ml) Inj (For Cardiac Arrhy) IV ONE (12:03)
[2017-10-27] MEDS ORDERED: Iohexol 240 (50 ml) ONE (12:04)
[2017-10-27] MEDS ORDERED: Phenylephrine 10 mg/ml Inj ONE (12:06)
[2017-10-27] MEDS ORDERED: Gentamicin 80 mg/2mL Inj. ONE (12:29)
[2017-10-27] MEDS ORDERED: cefTRIAXone (Rocephin) 1 gm Inj ONE (12:29)
[2017-10-27] MEDS ORDERED: Morphine 2 mg/ml ISec IVP PRN (14:01)
[2017-10-27] MEDS ORDERED: Morphine 4 mg/ml ISec ONE ×2 (14:10→14:34)
[2017-10-27] MEDS ORDERED: Morphine 2 mg/ml ISec IVP ONE ×2 (14:13→14:35)
--- NOTE | 2017-10-27 15:05 | RAD ---
Date of service: 10/27/2017 PROCEDURE: Retrograde pyelogram HISTORY: RT lithotripsy, stent placement, retrograde pyelogram COMPARISON: TECHNIQUE: Fluoroscopy was provided in the operating room. 237 seconds of fluoro time. Cumulative dose 50.26 mGy. 26 images were submitted FINDINGS: Wires catheters and instruments are seen in the right ureter with multiple stone fragments seen in the renal pelvis. There is placement of a ureteral stent. IMPRESSION: As above
[2017-10-27 15:15] VITALS: BP 144/62; PULSE 75; RESP 20; TEMP 97.7; O2SAT 94
--- NOTE | 2017-11-03 13:18 | OP ---
PROCEDURE DATE: 10/27/2017 PREOPERATIVE DIAGNOSES: Right renal calculi, solitary right kidney. POSTOPERATIVE DIAGNOSES: Right renal calculi, solitary right kidney plus retained ureteral stent and ureteral calculi. PROCEDURES: Cystoscopy, right retrograde pyelogram, right ureteroscopy, laser lithotripsy of ureteral calculi, attempted extraction of ureteral stent and placement of a ureteral stent. ATTENDING SURGEON: Duke Epperson MD. ANESTHESIA: General. SPECIMENS Ureteral calculi and bladder calculi were sent to pathology for analysis. COMPLICATIONS: Stent could not be extracted. OPERATIVE FINDINGS After informed consent was obtained, the patient was taken to the Operating Room, placed on operating table. Anesthesia was administered. The patient received intravenous antibiotics prior to the start of the procedure. A 21-Mohawk cystoscope was advanced into the patient's bladder and a full survey inspection was performed. There was a stent, which was heavily encrusted, noted exiting from the right ureteral orifice. There were no bladder tumors noted. There are multiple small pieces of stone in the bladder. At this point, a grasping forceps was passed. Using the forceps, the stone was able to be broken off of the distal limb of the stent. Bladder was irrigated and the stone fragments were removed from the bladder. The end of the stent, which is now clear was grasped and withdrawn through the urethral meatus. On fluoroscopy, the upper limb of the stent uncoiled slightly; however, there was resistance noted on removing the stent and it did not come out easily. Attempts were made to pass a sensor wire through the stent, which were unsuccessful. An Amplatz Super Stiff wire was also obtained and multiple attempts were made to pass the stiff wire through the stent, but again this was unsuccessful. At this point, the stent was pushed back into the bladder. An 8-Mohawk semi-rigid ureteroscope was then obtained. The cystoscope first was repassed and contrast was instilled into the system by passing an open-ended ureteral catheter into the ureteral orifice along side of the stent. Retrograde pyelogram showed multiple apparent filling defects and stone fragments along the stent and in the renal pelvis. At this point, a sensor wire was obtained. It was passed through the open-ended ureteral catheter and advanced up the ureter under fluoroscopic guidance. All of it coiled in the upper collecting system. The bladder was drained. The cystoscope was removed. The ureteroscope was then passed under direct vision into the bladder. The ureteroscope was advanced into the ureteral orifice along side of the stent. The stent was noted to be encrusted with multiple areas of stone. A Holmium laser fiber was passed through the scope and the fragments were able to be cleared off of the ureteral stent in the ureter. The ureteroscope was able to be advanced to the renal pelvis, but could not be advanced further. At this point, the semi-rigid ureteroscope was withdrawn. The cystoscope was repassed and a Glidewire was passed along side of the stent and the sensor wire which were already in place. A flexible ureteroscope was then obtained. It was passed over the Glidewire into the ureter. It was able to be advanced fluoroscopically and under direct vision, up the ureter until the level of the renal pelvis was reached. The view at this point revealed multiple large stone fragments wedged into the renal pelvis. Using the Holmium laser fiber, lithotripsy was undertaken that there was a large amount of debris and the scope could not be passed beyond this point into the kidney to visualize the loop of the stent. The stent had been pulled down into the renal pelvis. There was a large amount of debris and stone fragments in the renal pelvis. Multiple attempts were made to pass the scope beyond this to visualize the upper collecting system and the upper loop of the stent. However, this was unsuccessful and ureteroscopy was then abandoned. The ureteroscope was then withdrawn under direct vision. The cystoscope was again repassed. An open-ended catheter was placed into the right ureteral orifice and contrast was instilled into the system. There was mild hydronephrosis noted with multiple filling defects in the renal pelvis. The upper limb of the stent was uncoiled, but had been pulled down into the UPJ. It was unclear if this would be adequate drainage for her kidney as the stent was heavily encrusted and unable to get a wire through it. Therefore, decision was made to place a second stent. A second sensor wire was obtained. It was passed through the open-ended ureteral catheter, was able to be advanced into the ureter and advanced beyond the UPJ until it coiled in the upper collecting system. A 4.8 stent was obtained. It was passed over the wire through the cystoscope and guided up the ureter. The stent was able to be manipulated past the obstruction and the UPJ until it was in proper position. When the stent was in proper position, the guidewire was removed. A coil was seen in the upper collecting system on fluoroscopy. A coil was seen in the bladder on cystoscopy. At this point, the second safety wire was then removed under direct and fluoroscopic guidance. Final inspection was made, which revealed tails of both stents located in the bladder. A large amount of stone fragments from the ureter and from the bladder were irrigated out and sent in total to Pathology as specimen. On direct vision, there appeared to be good drainage of contrast material and urine through the second stent and coming out from the ureteral orifice. At this point, the procedure was completed, the bladder was drained and the cystoscope was removed. The patient tolerated the procedure well. She was taken to the Recovery Room in awake and stable condition. Duke Epperson MD
== END 2017-10-27 17:10 | disposition home or self-care (01) ==
LOC: SDS 09:35
PROVIDERS: ATTEND Urology
DX: N13.2 Hydronephrosis with renal and ureteral calculous obstruction (principal); N21.0 Calculus in bladder; I10 Essential (primary) hypertension; G20 Parkinson's disease; D45 Polycythemia vera
CPT/HCPCS: 52353; 74420; 82948; 88300; C1758; C1769 ×3; C2617; J0696; J1580; J2270 ×2; J2370; J3010; J7120; Q9966

== ENCOUNTER 2017-11-20 07:54 | Day surgery (SDC) | payer MEDICARE ==
[2017-11-18 08:48] VITALS: BMI 25.4
[2017-11-20 08:51] LABS: BASO # 0.04 K/mm3 (0.0-2.0); BASO % 0.5 % (0.0-3.0); EOS # 0.4 (0.0-0.7); EOS % 4.9 % (1.5-5.0); GRAN # 6.96 (1.4-6.5); GRAN % 85.4 % (50.0-68.0); HEMOGLOBIN 14.1 g/dL (12.0-16.0); LYMPH # 0.6 (1.2-3.4); LYMPH % 7.1 % (22.0-35.0); MEAN CELL VOLUME 76.9 fl (80.0-105.0); MEAN CORPUSCULAR HEMOGLOBIN 24.4 pg (25.0-35.0); MEAN CORPUSCULAR HGB CONC 31.7 g/dl (31.0-37.0); MONO # 0.2 (0.1-0.6); MONO % 2.1 % (1.0-6.0); PLATELET COUNT 345 10^3/uL (120.0-450.0); RBC 5.79 10^6/uL (3.5-6.1); RED CELL DISTRIBUTION WIDTH 20.8 % (11.5-14.5); WHITE BLOOD COUNT 8.2 10^3/ul (4.5-11.0)
[2017-11-20] MEDS ORDERED: cefTRIAXone (Rocephin) 1 gm Inj IVPB ONE (08:55)
[2017-11-20 09:00] LABS: CALCIUM 9.3 mg/dL (8.4-10.5)
[2017-11-20] MEDS ORDERED: Iohexol 240 (50 ml) IVP ONE (09:05)
[2017-11-20] MEDS ORDERED: Labetalol 5 mg/ml Inj 20ML IV STA (09:25)
[2017-11-20] MEDS ORDERED: Labetalol 5 mg/ml Inj 20ML IV PRN (09:29)
[2017-11-20] MEDS ORDERED: Lactated Ringer's 1,000 ML IV SCH (09:30)
[2017-11-20] MEDS ORDERED: Labetalol 5 mg/ml Inj 20ML ONE (09:31)
[2017-11-20 09:55] VITALS: RESP 18
[2017-11-20 10:40] VITALS: TEMP 97.6; O2SAT 96
--- NOTE | 2017-11-20 10:42 | RAD ---
Date of service: 11/20/2017 PROCEDURE: Retrograde pyelogram HISTORY: retrograde pyelogram, RT nephroureteral stent exchange COMPARISON: TECHNIQUE: 20.8 seconds of fluoro time. Cumulative dose 4.28 mGy. Sixteen images submitted FINDINGS: The study shows placement of a right ureteral stent IMPRESSION: As above
[2017-11-20 11:23] VITALS: BP 114/60; PULSE 74
--- NOTE | 2017-11-20 11:50 | OP ---
Copied To: Duke Epperson MD Attending MD: Duke Epperson MD PROCEDURE DATE: 11/20/2017 PREOPERATIVE DIAGNOSES: Right renal calculi, retained right ureteral stent. PROCEDURES: Cystoscopy, removal of ureteral stents, right retrograde pyelogram, insertion of a right ureteral stent. ATTENDING SURGEON: Dr. Duke Epperson. ANESTHESIA: General. SPECIMENS: There were none. DRAINS: A 6 x 24 right ureteral stent. COMPLICATIONS: There were none. OPERATIVE FINDINGS: After informed consent was obtained, the patient was taken to operating room, placed on the operating room table. Anesthesia was administered. The patient was placed in the dorsal lithotomy position, prepped and draped in the usual sterile fashion. The patient received IV antibiotics prior to start of the procedure. A 21-Arabic cystoscope was then passed into the patient's bladder and a full survey inspection was performed. There were two stents noted exiting from the right ureteral orifice. There were no papillary tumors noted. There was a small amount of encrustation noted on both of the distal stent limbs. There were no large bladder stones noted. At this point, grasping forceps was passed to the multilength stent, which had been placed, was grasped. It was withdrawn through the urethral meatus. On fluoroscopy, the upper limb was noted to uncoil usually and the stent was then removed without difficulty. The cystoscope was then repassed, the stent which had been in place since March was then grasped and also withdrawn through the urethral meatus. The upper limb now was noted to uncoil easily. The stent was withdrawn into the mid ureter. The cystoscope was then again repassed and a sensor wire was obtained. The sensor wire was then passed into the ureteral orifice, it was advanced up the ureter under fluoroscopic guidance alongside the stent until it coiled in the upper collecting system. The stent was then grasped at the urethral meatus and withdrawn in its entirety without any difficulty. The stent was examined in its entirety and was intact. At this point, the cystoscope was repassed while back loading the guidewire. An open-ended ureteral catheter was then passed into the ureter. The guidewire was then removed. A retrograde pyelogram was then performed by instilling contrast into the system during real-time fluoroscopy. There appeared to be some calculi in the kidney. The one large prior calculus appears to have been fragmented. There were multiple smaller pieces located throughout the collecting system. There was no hydronephrosis, but there was some fullness in the renal pelvis. At this point, a new 6 x 24 stent was obtained. It was passed over the wire through the cystoscope and into the right ureter. The stent was advanced proximally under direct and fluoroscopic guidance. When the stent was in proper position, the guidewire was removed. A coil was seen in the upper collecting system on fluoroscopy. A coil was seen in bladder on cystoscopy. At this point, the procedure was complete. The bladder was drained and the cystoscope was removed. The patient tolerated procedure well. She was taken to the recovery room awake in stable condition. Duke Epperson MD
== END 2017-11-20 11:30 | disposition home or self-care (01) ==
LOC: SDS 07:54
PROVIDERS: ATTEND Urology
DX: N20.0 Calculus of kidney (principal); I12.9 Hypertensive chronic kidney disease with stage 1 through stage 4 chronic kidney disease, or unspecified chronic kidney disease; N18.9 Chronic kidney disease, unspecified; I38 Endocarditis, valve unspecified; E07.9 Disorder of thyroid, unspecified
CPT/HCPCS: 36415; 52332; 74420; 80048; 85025; J0696; J2405; J3010; J7120; Q9966